=== PATIENT | female | born 1960 | race Caucasian/White ===

== ENCOUNTER 2022-06-12 23:51 | Emergency (ER) | payer BC, SELFPAY ==
[2022-06-12 23:51] VITALS: BP 179/84; PULSE 96; RESP 16; TEMP 36.8; O2SAT 97; BMI 46.2
[2022-06-13 00:05] VITALS: BMI 46.2
--- NOTE | 2022-06-13 00:08 | CT_ITS ---
PROCEDURE INFORMATION: Exam: CT Abdomen And Pelvis With Contrast Exam date and time: 06/13/2022 12:42 AM Age: 61 years old Clinical indication: Other: Bleeding from rectum TECHNIQUE: Imaging protocol: Computed tomography of the abdomen and pelvis with contrast. Radiation optimization: All CT scans at this facility use at least one of these dose optimization techniques: automated exposure control; mA and/or kV adjustment per patient size (includes targeted exams where dose is matched to clinical indication); or iterative reconstruction. Contrast material: ISOVUE; Contrast volume: 75 ml; Contrast route: IV; COMPARISON: No relevant prior studies available. FINDINGS: Liver: Normal. No mass. Gallbladder and bile ducts: Cholecystectomy. Pancreas: Normal. No ductal dilation. Spleen: Normal. No splenomegaly. Adrenal glands: Normal. No mass. Kidneys and ureters: Normal. No hydronephrosis. Stomach and bowel: Unremarkable. No obstruction. No mucosal thickening. Appendix: Appendix not seen but no secondary signs of appendicitis. Intraperitoneal space: Unremarkable. No free air. No significant fluid collection. Vasculature: Unremarkable. No abdominal aortic aneurysm. Lymph nodes: Unremarkable. No enlarged lymph nodes. Urinary bladder: Unremarkable as visualized. Reproductive: Unremarkable as visualized. Bones/joints: Unremarkable. No acute fracture. Soft tissues: Unremarkable. IMPRESSION: No acute findings in the abdomen and pelvis
[2022-06-13 00:14] LABS: Occult Blood,Stool Positive (Negative)
[2022-06-13 00:15] LABS: Basophils # 0.1 K/mm3 (0-0.2); Basophils % 1.4 % (0.1-2.0); Eosinophils # 0.5 K/mm3 (0.0-0.4); Eosinophils % 6.8 % (0.1-12.0); Hematocrit 37.8 % (37.0-47.0); Hemoglobin 12.3 g/dL (12.2-16.2); Lymphocytes # 2.4 K/mm3 (0.7-4.5); Lymphocytes % 31.2 % (10-50); Mean Corpuscular HGB Conc 32.5 g/dL (31.8-35.4); Mean Corpuscular Hemoglobin 27.7 pg (27.0-31.2); Mean Corpuscular Volume 85.3 fl (81-99); Mean Platelet Volume 8.3 fl (7.4-10.4); Monocytes # 0.4 K/mm3 (0.1-1.0); Monocytes % 5.1 % (1.7-9.3); Neutrophils # 4.3 K/mm3 (1.8-7.8); Neutrophils % 55.6 % (37.0-80.0); Platelet Count 262 K/mm3 (142-424); Red Blood Count 4.43 M/mm3 (4.20-5.40); Red Cell Distribution Width 14.6 % (11.5-17.5); White Blood Count 7.6 K/mm3 (4.8-10.8)
[2022-06-13 00:19] LABS: Alanine Aminotransferase 27 U/L (12-78); Albumin Level 4.5 g/dl (3.5-5.0); Albumin/Globulin Ratio 1.3 (1.1-1.8); Alkaline Phosphatase 108 U/L (38-126); Amylase 52 U/L (30-110); Anion Gap 12.5 mEq/L (5-15); Aspartate Amino Transferase 38 U/L (14-36); Bilirubin,Total 0.5 mg/dl (0.2-1.3); Blood Urea Nitrogen 25 mg/dl (7-17); Calcium 9.7 mg/dl (8.4-10.2); Carbon Dioxide 30 mmol/L (22.0-30.0); Chloride 100 mmol/L (98-107); Creatinine Clearance Estimated 45 mL/min (50-200); Estimated Glomerular Filt Rate 42 ml/min (>60); GFR (African American) 51 ML/MIN (>60); Globulin 3.4 g/dL (1.3-3.2); Glucose 164 mg/dl (74-100); Lipase 181 U/L (23-300); Potassium 3.5 mmoL/L (3.5-5.1); Sodium 139 mmol/L (136-145); Total Protein,Serum 7.9 g/dl (6.3-8.2)
--- NOTE | 2022-06-13 00:31 | HMH.EDGIBL ---
Discharge Plan Disposition Chief Complaint: GI Bleed Clinical Impressions Clinical Impression: Acute lower gastrointestinal bleeding, Hemorrhoids Instructions Patient Instructions: DI for Gastrointestinal Bleeding Discharge ED Provider: Robin Torres GI Bleed HPI General Chief complaint: GI Bleed Stated complaint: Rectal Bleeding Time Seen by Provider: 06/13/22 00:32 Mode of Arrival: EMS Source of Information: Patient, EMS and Medical Record Limitations: No Limitations Description of Symptoms (Recalled from ER Triage Doc. by RN): pt c/o rectal bleeding that started tonight. History of Present Illness HPI Narrative: brrb with bleeding started tonight - had colonoscopy a few months ago -hx of hemmorroids and reported the bleeding was dark and had clots MD complaint: gross hematochezia Onset (ago): hour(s) Consistency: intermittent Severity: moderate Context: history of GI bleed Associated symptoms: denies other symptoms Treatments Prior to Arrival: none Related Data Allergies Allergy/AdvReac Type Severity Reaction Status Date / Time Penicillins Allergy Verified 06/13/22 00:07 sulfamethoxazole Allergy Verified 06/13/22 00:08 [From Bactrim] trimethoprim [From Bactrim] Allergy Verified 06/13/22 00:08 [facility] Disclaimer: The information contained in this section may have been updated after the patient was seen, as this information can be updated by other users. Social History Smoking Status: Never smoker alcohol intake: never current occupational status: employed Travel in the last 8 weeks: None ROS Obtained: Yes All systems reviewed & no additional complaints except as documented Physical Exam General General appearance: alert Head Head exam: normocephalic Eye Eye exam: Present PERRL and EOMI ENT ENT exam: Present mucous membranes moist Neck Neck exam: Present trachea midline Respiratory Respiratory exam: Absent respiratory distress Cardiovascular Cardiovascular exam: Present regular rate Abdominal Exam Abdominal exam: Present soft; Absent tenderness Rectal Exam Rectal exam: Present heme (+) stool and hemorrhoids Extremities Exam Extremities exam: Present full ROM Neurological Exam Neurological exam: Present alert, oriented X3 and CN II-XII intact; Absent motor sensory deficit Psychiatric Psychiatric exam: Present normal affect Skin Skin exam: Absent rash Medical Decision Making Medical Records Medical records reviewed: Yes I reviewed the patient's medical records. Jean Inquiry Pt receiving controlled substance: No Vital Signs: 06/12/22 23:51 Temperature 98.2 F Temperature Source Oral Pulse Rate [Right] 96 H Respiratory Rate 16 Blood Pressure [Right Arm] 179/84 H Blood Pressure Mean [Right Arm] 115 02 Sat by Pulse Oximetry 97 Lab Data Lab results reviewed: Yes I reviewed the patient's lab results. Lab Results 06/13/22 00:00: WBC 7.6, RBC 4.43, Hgb 12.3, Hct 37.8, MCV 85.3, MCH 27.7, MCHC 32.5, RDW 14.6, Plt Count 262, MPV 8.3, Neut % (Auto) 55.6, Lymph % (Auto) 31.2, [place] % (Auto) 5.1, Eos % (Auto) 6.8, Baso % (Auto) 1.4, Neut # (Auto) 4.3, Lymph # (Auto) 2.4, [place] # (Auto) 0.4, Eos # (Auto) 0.5 H, Baso # (Auto) 0.1 06/13/22 00:00: Sodium 139, Potassium 3.5, Chloride 100, Carbon Dioxide 30, Anion Gap 12.5, BUN 25 H, Creatinine 1.30 H, Estimated Creat Clear 45, Estimated GFR 42 L, Est GFR ( Amer) 51 L, Glucose 164 H, Calcium 9.7, Total Bilirubin 0.5, AST 38 H, ALT 27, Alkaline Phosphatase 108, Total Protein 7.9, Albumin 4.5, Globulin 3.4 H, Albumin/Globulin Ratio 1.3, Amylase 52, Lipase 181 06/13/22 00:00: Stool Occult Blood Positive A Result diagrams: 06/13/22 00:00 06/13/22 00:00 Orders (Tests/Meds): ED MEDICATIONS Discontinued Medications Generic Name Dose Route Start Last Admin Trade Name Freq PRN Reason Stop Dose Admin Sodium Chloride 1,000 mls @ 999 mls/hr 06/13/22 00:15 06/13/22 00:17 Sod C
[2022-06-13 01:35] VITALS: BP 136/84; PULSE 90; RESP 16; TEMP 36.8; O2SAT 96
== END 2022-06-13 01:56 | disposition home or self-care (01) ==
PROVIDERS: Emergency Provider Emergency Medicine; PCP Nurse Practitioner
DX: K92.1 Melena (principal); K64.9 Unspecified hemorrhoids; Z88.0 Allergy status to penicillin; Z88.2 Allergy status to sulfonamides; Z88.8 Allergy status to other drugs, medicaments and biological substances
CPT/HCPCS: 74177; 80053; 82150; 82272; 83690; 85025; 96360; 99285; G0328; Q9967

== ENCOUNTER 2024-01-23 14:25 | Emergency (ER) | payer BC, SELFPAY ==
[2024-01-23 14:46] VITALS: BP 144/85; PULSE 109; RESP 16; TEMP 36.6; O2SAT 99; BMI 44.6
--- NOTE | 2024-01-23 14:57 | ED_ITS ---
Discharge Plan Disposition Patient Disposition: Home, Self-Care Condition: Good Prescriptions Prescriptions: New prednisone 10 mg tablet 10 mg PO DIRECTED 9 Days Qty: 21 0RF Rx Instructions: Take 4 tablets daily for 3 days, then take 2 tablets daily for 3 days, then take 1 tablet daily for 3 days, then stop. Referrals Follow up/Referrals: Christa Cortes APRN [Primary Care Provider] - See instructions Kandace Alcaraz DPM [Staff Physician] - See instructions Activity Restrictions/Add. Instructions Additional Instructions/Restrictions: Rest the extremity, Elevate the extremity as tolerated while you are resting. Take tylenol for pain. Take the medications as directed. Follow up with the boring machine set up operator (Dr. Alcaraz). I put in a referral. You will need to call her office and schedule an appointment. Her office phone number will be on this paperwork. Follow up with your regular doctor. GO TO THE ER FOR ANY WORSENING SYMPTOMS Clinical Impressions Clinical Impression: Left foot pain Print Language Print Language: Turkmen Discharge ED Provider: Paramjit Hickman [facility] General Stated complaint: Pain in L foot-prev accident Mode of Arrival: Ambulatory Source of Information: Patient Limitations: No Limitations Time Seen by Provider: 01/23/24 14:57 Description of Symptoms (Recalled from Triage Doc. by RN): Patient reports severe pain and swelling in her left foot. HEENT Symptoms (Recalled from RN notes): No Resp Symptoms (Recalled from RN notes): No Skin Symptoms (Recalled from RN notes): No MS Symptoms (Recalled from RN notes): Yes Functional Status (Recalled from RN notes): wnl Related Data Previous Rx's ?Medication ?Instructions ?Recorded prednisone 10 mg tablet 10 mg PO DIRECTED 9 days #21 01/23/24 tabs Allergies Allergy/AdvReac Type Severity Reaction Status Date / Time Penicillins Allergy Verified 06/13/22 00:07 sulfamethoxazole Allergy Verified 06/13/22 00:08 [From Bactrim] trimethoprim [From Bactrim] Allergy Verified 06/13/22 00:08 Worker's Comp Is this a Worker's Comp case?: No [facility] Disclaimer: The information contained in this section may have been updated after the patient was seen, as this information can be updated by other users. Social History (Updated 06/13/22 @ 01:43 by Robin Torres MD) Smoking Status: Never smoker alcohol intake: never current occupational status: employed Travel in the last 8 weeks: None ROS Obtained: Yes All systems reviewed & no additional complaints except as documented Constitutional Constitutional: Denies chills and Denies fever(s) Eyes Eyes: Denies eye discharge ENT Ears, Nose, Mouth, and Throat: Denies dizziness, Denies otalgia and Denies sore throat Cardiovascular Cardiovascular: Denies chest pain Respiratory Respiratory: Denies shortness of breath, Denies chest congestion, Denies cough, Denies stridor and Denies wheezing Gastrointestinal Gastrointestingal: Denies nausea or vomiting Musculoskeletal Musculoskeletal: Reports system reviewed and no additional complaints, except as documented and Denies arthralgias Integumentary/Breasts Skin/Breast: Denies rash Neurologic Neurologic: Denies dizziness and Denies paresthesias Allergic/Immunologic Allergic/Immunologic: Denies wheezing Physical Exam General General appearance: alert and in no apparent distress Head Head exam: atraumatic, normocephalic and normal inspection Eye Eye exam: Present normal appearance, PERRL and EOMI ENT ENT exam: Present normal exam, normal oropharynx, mucous membranes moist, TM's normal bilaterally and normal external ear exam Neck Neck exam: Present normal inspection, full ROM and trachea midline; Absent meningismus or lymphadenopathy Chest Chest inspection: Present normal inspection and symmetric chest wall rise; Absent tenderness Respiratory Respiratory exam: Present normal lung sounds bilaterally; Absent respiratory distress Cardiovascular Cardiovascular exam: Present regular rate and normal rhythm; Absent JVD Abdominal Exam Abdominal exam: Present soft and normal bowel sounds; Absent distention, tenderness or guarding Extremities Exam Extremities exam: Present normal inspection, full ROM and normal capillary refill; Absent calf tenderness Back Exam Back exam: Present normal inspection; Absent tenderness Neurological Exam Neurological exam: Present alert and oriented X3 Psychiatric Psychiatric exam: Present normal affect and normal mood Skin Skin exam: Present warm, dry, intact and normal color Lymphatic Lymphatic Findings: no adenopathy Medical Decision Making Medical Records Medical records reviewed: No I reviewed the patient's medical records. Jean Inquiry Pt receiving controlled substance: No Vital Signs: 01/23/24 14:46 Temperature 97.9 F Temperature Source Oral Pulse Rate [Radial] 109 H Respiratory Rate 16 Blood Pressure [Right Arm] 144/85 H Blood Pressure Mean [Right Arm] 104 Blood Pressure Source [Right Arm] Automatic Cuff Blood Pressure Position [Right Arm] Sitting 02 Sat by Pulse Oximetry 99 Oxygen Delivery Method Room Air
[2024-01-23 15:41] VITALS: BP 144/85; PULSE 109; RESP 16; TEMP 36.6; O2SAT 99
== END 2024-01-23 15:42 | disposition home or self-care (01) ==
PROVIDERS: Emergency Provider Nurse Practitioner Family; PCP Nurse Practitioner
DX: M79.672 Pain in left foot (principal)
CPT/HCPCS: 99204; 99212; G0463

== ENCOUNTER 2024-02-02 10:49 | Outpatient (CLI) | payer BC, SELFPAY ==
--- NOTE | 2024-02-02 10:53 | XR_ITS ---
FINAL REPORT CLINICAL HISTORY: L foot pain FINDINGS: LEFT FOOT Three views of the left foot demonstrate no acute fracture or dislocation. The visualized joint spaces are normally aligned. There is lateral soft tissue swelling. IMPRESSION: No acute bony abnormality. Reviewed, Interpreted and Dictated by Reynaldo Thompson III, MD Transcribed by Nathalia Street Authenticated and [facility]
--- NOTE | 2024-02-02 10:53 | XR_ITS ---
FINAL REPORT CLINICAL HISTORY: L foot pain FINDINGS: LEFT ANKLE Three views demonstrate no acute fracture or dislocation. The visualized joint spaces are normally aligned. There are mild degenerative changes with calcaneal spurring. There is forefoot soft tissue swelling. IMPRESSION: No acute bony abnormality. Reviewed, Interpreted and Dictated by Reynaldo Thompson III, MD Transcribed by Nathalia Street Authenticated and [facility]
== END 2024-02-02 23:59 | disposition home or self-care (01) ==
LOC: RAD 10:49
PROVIDERS: PCP Student in an Organized Health Care Education/Training Program; Visit Provider Student in an Organized Health Care Education/Training Program
DX: M79.672 Pain in left foot (principal)
CPT/HCPCS: 73610; 73630

== ENCOUNTER 2024-02-12 11:18 | Outpatient (CLI) | payer BC, SELFPAY ==
--- NOTE | 2024-02-12 11:22 | XR_ITS ---
FINAL REPORT CLINICAL HISTORY: right ankle pain FINDINGS: Right ankle Three views were obtained. There is no acute fracture or dislocation. There are mild degenerative changes. There is a questionable subchondral cyst in the medial talar dome. Calcaneal spurs are identified. No soft tissue abnormality is identified. IMPRESSION: Mild degenerative changes. Questionable subchondral cyst in the medial talar dome. Reviewed, Interpreted and Dictated by Reynaldo Thompson III, MD Transcribed by Mel Ledbetter Authenticated and [facility]
--- NOTE | 2024-02-12 11:22 | XR_ITS ---
FINAL REPORT CLINICAL HISTORY: right foot pain FINDINGS: Right foot Three views were obtained. There is no acute fracture or dislocation. There are mild degenerative changes. Mild hallux valgus deformity is identified. There are calcaneal spurs. No soft tissue abnormality is identified. IMPRESSION: Mild degenerative changes. Reviewed, Interpreted and Dictated by Reynaldo Thompson III, MD Transcribed by Mel Ledbetter Authenticated and [facility]
[2024-02-12 18:41] LABS: Basophils # 0.1 K/mm3 (0-0.2); Eosinophils # 0.4 K/mm3 (0.0-0.4); Eosinophils % 4.4 % (0.1-12.0); Hematocrit 40.4 % (37.0-47.0); Hemoglobin 12.7 g/dL (12.2-16.2); Lymphocytes % 24.4 % (10-50); Mean Corpuscular HGB Conc 31.4 g/dL (31.8-35.4); Mean Corpuscular Hemoglobin 28.9 pg (27.0-31.2); Mean Corpuscular Volume 92.2 fl (81-99); Mean Platelet Volume 11.1 fl (7.4-10.4); Monocytes # 0.5 K/mm3 (0.1-1.0); Monocytes % 5.8 % (1.7-9.3); Neutrophils # 5.2 K/mm3 (1.8-7.8); Neutrophils % 64.5 % (37.0-80.0); Platelet Count 294 K/mm3 (142-424); Red Blood Count 4.39 M/mm3 (4.20-5.40); Red Cell Distribution Width 14.8 % (11.5-17.5); White Blood Count 8.1 K/mm3 (4.8-10.8)
[2024-02-12 19:27] LABS: Alanine Aminotransferase 29 U/L (12-78); Albumin Level 4.3 g/dl (3.5-5.0); Albumin/Globulin Ratio 1.2 (1.1-1.8); Alkaline Phosphatase 97 U/L (38-126); Anion Gap 16.6 mEq/L (5-15); Aspartate Amino Transferase 36 U/L (14-36); Bilirubin,Total 0.8 mg/dl (0.2-1.3); Blood Urea Nitrogen 16 mg/dl (7-17); Calcium 9.9 mg/dl (8.4-10.2); Carbon Dioxide 30 mmol/L (22.0-30.0); Chloride 98 mmol/L (98-107); Chol/HDL Ratio 5.6 (1-3.5); Cholesterol 175 mg/dl (140-200); Estimated Glomerular Filt Rate 50 ml/min (>60); GFR (African American) 61 ML/MIN (>60); Globulin 3.7 g/dL (1.3-3.2); Glucose 148 mg/dl (74-100); HDL Cholesterol 31 mg/dl (40-60); Potassium 4.6 mmoL/L (3.5-5.1); Sodium 140 mmol/L (136-145); Triglycerides 332 mg/dl (30-150); Uric Acid 8.4 mg/dl (2.5-6.2); VLDL Cholesterol 66 mg/dL (0-40)
[2024-02-12 19:40] LABS: Direct LDL Cholesterol 78.77 mg/dL (100-129)
[2024-02-12 21:59] LABS: Hemoglobin A1C 7.6 % (4.0-6.0)
== END 2024-02-12 23:59 | disposition home or self-care (01) ==
LOC: LAB.DROPOF 11:19
PROVIDERS: PCP Family Medicine; Visit Provider Family Medicine
DX: M25.571 Pain in right ankle and joints of right foot (principal); M79.671 Pain in right foot; M19.90 Unspecified osteoarthritis, unspecified site; N18.9 Chronic kidney disease, unspecified; M10.9 Gout, unspecified; E83.42 Hypomagnesemia; E78.5 Hyperlipidemia, unspecified; E11.9 Type 2 diabetes mellitus without complications
CPT/HCPCS: 73600; 73630; 80053; 80061; 83036; 83735; 84550; 85025; 86140

== ENCOUNTER 2024-02-17 09:56 | Outpatient (CLI) | payer BC, SELFPAY ==
[2024-02-17 19:38] LABS: Magnesium 1.7 mg/dl (1.6-2.3)
== END 2024-02-17 23:59 | disposition home or self-care (01) ==
LOC: LAB.DROPOF 02-18 09:57
PROVIDERS: PCP Family Medicine; Visit Provider Family Medicine
DX: E83.42 Hypomagnesemia (principal)
CPT/HCPCS: 83735

== ENCOUNTER 2024-02-18 10:26 | Outpatient (CLI) | payer BC, SELFPAY ==
--- NOTE | 2024-02-18 10:26 | MM_ITS ---
PROCEDURE INFORMATION: Exam: MG Bilateral Screening 3D Mammography Exam date and time: 02/18/2024 10:18 AM Age: 63 years old Clinical indication: Screening examination TECHNIQUE: Imaging protocol: Bilateral Screening tomosynthesis and 2D mammography including computer-aided detection (CAD) when performed. COMPARISON: MG MM MAMMO DIGITAL PIERRE SCREEN BILAT 11/07/2021 12:58 PM FINDINGS: MAMMOGRAPHY: Breast composition: The breasts are heterogeneously dense, which may obscure small masses. Mass: None. Architectural distortion: None. Calcifications: No suspicious calcifications. Asymmetric density: None. Skin thickening: None. Axillary adenopathy: None. IMPRESSION: No mammographic evidence of malignancy. Annual screening is recommended unless otherwise clinically indicated. ASSESSMENT: BI-RADS Category 1: Negative
== END 2024-02-18 23:59 | disposition home or self-care (01) ==
LOC: RAD 10:26
PROVIDERS: PCP Family Medicine; Visit Provider Family Medicine
DX: Z12.31 Encounter for screening mammogram for malignant neoplasm of breast (principal)
CPT/HCPCS: 77063; 77067

== ENCOUNTER 2024-03-10 10:40 | Outpatient (CLI) | payer BC, SELFPAY ==
--- NOTE | 2024-03-10 10:43 | CA_ITS ---
FINAL REPORT TECHNIQUE: Color Doppler, duplex Doppler and compression sonography of the right lower extremity venous system was performed. CLINICAL HISTORY: right leg swelling, HTN, HLD, DM. Denies trauma. States RLE edema x 1 month, better with elevation. Right leg and foot aren't as swollen when she wakes in the morning but swelling never fully goes down. FINDINGS: There is no evidence of deep venous thrombosis from the level of the groin to the calf. The veins are patent and compressible. IMPRESSION: No evidence of deep venous thrombosis right lower extremity. Reviewed, Interpreted and Dictated by Reynaldo Thompson III, MD Transcribed by Mel Ledbetter Authenticated and [facility]
== END 2024-03-10 23:59 | disposition home or self-care (01) ==
LOC: RT 10:41
PROVIDERS: PCP Family Medicine; Visit Provider Family Medicine
DX: M79.89 Other specified soft tissue disorders (principal)
CPT/HCPCS: 93971

== ENCOUNTER 2024-03-16 10:00 | Outpatient (CLI) | payer BC, SELFPAY ==
[2024-03-16 22:10] LABS: Anion Gap 11.1 mEq/L (5-15); Blood Urea Nitrogen 21 mg/dl (7-17); Calcium 10.1 mg/dl (8.4-10.2); Carbon Dioxide 29 mmol/L (22.0-30.0); Chloride 103 mmol/L (98-107); Estimated Glomerular Filt Rate 56 ml/min (>60); GFR (African American) 68 ML/MIN (>60); Glucose 171 mg/dl (74-100); Magnesium 2.2 mg/dl (1.6-2.3); Potassium 5.1 mmoL/L (3.5-5.1); Sodium 138 mmol/L (136-145)
== END 2024-03-16 23:59 | disposition home or self-care (01) ==
LOC: LAB.DROPOF 03-17 10:23
PROVIDERS: PCP Family Medicine; Visit Provider Family Medicine
DX: N18.9 Chronic kidney disease, unspecified (principal)
CPT/HCPCS: 80048; 83735

== ENCOUNTER 2024-03-23 12:34 | Outpatient (CLI) | payer BC, SELFPAY ==
[2024-03-23 14:22] VITALS: BMI 46.0
== END 2024-03-23 23:59 | disposition home or self-care (01) ==
LOC: DIETICIAN 12:35
PROVIDERS: PCP Family Medicine; Visit Provider Family Medicine
DX: E11.9 Type 2 diabetes mellitus without complications (principal); E66.01 Morbid (severe) obesity due to excess calories; Z68.42 Body mass index [BMI] 45.0-49.9, adult
CPT/HCPCS: 97802

== ENCOUNTER 2024-03-31 08:09 | Outpatient (CLI) | payer BC, SELFPAY ==
--- NOTE | 2024-03-31 08:09 | MR_ITS ---
FINAL REPORT CLINICAL HISTORY: Ankle Pain COMPARISON: None FINDINGS: Multiplanar and multisequence imaging of the right ankle was obtained with and without intravenous contrast. There is fusiform enlargement of the distal Achilles tendon. Linear abnormal signal is consistent with chronic partial intrasubstance tear. The plantar fascia is intact. The bony structures are intact without evidence of fracture, bone bruise or marrow edema. There is a small osteochondral lesion of the medial talar dome measuring up to 5 mm. The ligaments are intact without evidence of injury. The flexor and extensor tendons are intact. The posterior plantar aponeurosis is intact. No significant joint effusion is seen. The musculature is intact. The soft tissue edema is noted about the ankle. There is no evidence of abnormal contrast enhancement. 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 Osteochondral defect medial talar dome. Please see foot MRI report. Reviewed, Interpreted and Dictated by Kishore Johnson MD Transcribed by Thuy Fuller Authenticated and [facility]
--- NOTE | 2024-03-31 08:09 | MR_ITS ---
FINAL REPORT CLINICAL HISTORY: Foot Pain COMPARISON: None FINDINGS: Multiplanar MR imaging of the right foot was performed with and without contrast. There is abnormal signal in the anterior aspect of the tarsal cuboid and lateral cuneiform. Abnormal signal is noted at the base of the 2nd, 3rd, and 4th metatarsals. There is no definite fracture identified. No abnormal fluid collection is seen. There appears to be enhancement of the distal portion of the tarsal cuboid, lateral cuneiform, and base of the 2nd through 4th metatarsals. IMPRESSION: Abnormal signal anterior aspect of the lateral cuneiform, anterior cuboid, and base of the 2nd through 4th metatarsals. Findings are favored to be related to ligamentous instability and/or tarsometatarsal osteoarthritis. Reviewed, Interpreted and Dictated by Kishore Johnson MD Transcribed by Thuy Fuller Authenticated and [facility]
[2024-03-31] MEDS: GADOTERIDOL INJ 20ML SYRINGE 20 ML IV (09:58)
[2024-03-31] MEDS: SODIUM CHLORIDE 0.9% 10ML SYR (RAD ONLY) 10 ML IV (09:58)
[2024-03-31] MEDS: GADOTERIDOL INJ 10ML SYRINGE 2 ML IV (09:58)
== END 2024-03-31 23:59 | disposition home or self-care (01) ==
LOC: RAD 08:09
PROVIDERS: PCP Family Medicine; Visit Provider Nurse Practitioner
DX: R60.0 Localized edema (principal); M76.71 Peroneal tendinitis, right leg
CPT/HCPCS: 73720; 73723; A9576

== ENCOUNTER 2024-05-04 08:25 | Outpatient (CLI) | payer BC, SELFPAY ==
--- NOTE | 2024-05-04 08:30 | XR_ITS ---
FINAL REPORT CLINICAL HISTORY: .pain COMPARISON: None FINDINGS: RIGHT FOOT: Three views of the right foot were obtained. There is no acute fracture or dislocation. There is mild degenerative change as well as calcaneal spurs. There is a mild hallux valgus deformity. Pes planus deformity is present as well. There is no soft tissue abnormality. IMPRESSION: Mild degenerative change, with calcaneal spurs, a mild hallux valgus deformity, and pes planus deformity. No acute bony abnormality. Authenticated and [facility]
--- NOTE | 2024-05-04 08:30 | XR_ITS ---
FINAL REPORT CLINICAL HISTORY: .pain COMPARISON: None FINDINGS: RIGHT ANKLE: Three views of the right ankle were obtained. There is no acute fracture or dislocation. The joint spaces and mortise are intact. Mild degenerative change is present. Soft tissue swelling is present surrounding the ankle. There are calcaneal spurs present. IMPRESSION: Mild degenerative change and soft tissue swelling with no acute bony abnormality. Authenticated and [facility]
== END 2024-05-04 23:59 | disposition home or self-care (01) ==
LOC: RAD 08:27
PROVIDERS: PCP Family Medicine; Visit Provider Nurse Practitioner
DX: M19.071 Primary osteoarthritis, right ankle and foot (principal); R22.41 Localized swelling, mass and lump, right lower limb; M84.374D Stress fracture, right foot, subsequent encounter for fracture with routine healing
CPT/HCPCS: 73610; 73630

== ENCOUNTER 2024-05-05 08:59 | Emergency (ER) | payer BC, SELFPAY ==
[2024-05-05 09:47] VITALS: BP 162/89; PULSE 94; RESP 20; TEMP 36.7; O2SAT 96; BMI 45.7
--- NOTE | 2024-05-05 09:47 | XR_ITS ---
PROCEDURE INFORMATION: Exam: XR Right Knee Exam date and time: 05/05/2024 9:46 AM Age: 63 years old Clinical indication: Pain; Knee; Right; Additional info: Pain, unknown injury TECHNIQUE: Imaging protocol: Radiologic exam of the right knee. Views: 3 views. COMPARISON: CR XR ANKLE WT BEARING RT MIN 3V 05/04/2024 8:47 AM FINDINGS: Bones/joints: Mild degenerative changes within the medial compartment reflected as mild joint space narrowing. Mild patellofemoral degenerative changes. Subchondral lucency within the medial tibial plateau. Correlation with CT recommended. Mild degenerative changes most pronounced medially Soft tissues: Normal. IMPRESSION: Subchondral lucency within the medial tibial plateau. Correlation with CT recommended.
--- NOTE | 2024-05-05 09:49 | EXP.UTC ---
Discharge Plan Disposition Patient Disposition: Home, Self-Care Prescriptions Prescriptions: No Action triamcinolone acetonide 0.5 % cream 1 applic topical BID Qty: 15 2RF Rx Instructions: apply to rash left thigh prn itching ibuprofen-famotidine [Duexis] 800-26.6 mg tablet 1 tab PO TID 30 Days Qty: 90 1RF albuterol sulfate [Ventolin HFA] 90 mcg/actuation HFA aerosol inhaler 2 puff inhalation Q6H PRN aspirin [Adult Aspirin Regimen] 81 mg tablet,delayed release (DR/EC) 81 mg PO DAILY atorvastatin 40 mg tablet 40 mg PO HS (DME) blood sugar diagnostic Strip See Rx Instructions .Route Rx Instructions: As directed esomeprazole magnesium 40 mg capsule,delayed release(DR/EC) 40 mg PO DAILY hydralazine 50 mg tablet 50 mg PO QID (DME) pen needle, diabetic [Comfort EZ Pen Reeder] 32 gauge x 5/32 needle See Rx Instructions .Route Rx Instructions: As directed (DME) lancets 28 gauge misc See Rx Instructions .Route Rx Instructions: As directed lisinopril 40 mg tablet 40 mg PO DAILY metformin 500 mg tablet extended release 24 hr 1,000 mg PO BID Rx Instructions: with meals potassium chloride 10 mEq capsule, extended release 10 meq PO DAILY pregabalin [Lyrica] 50 mg capsule 50 mg PO TID Qty: 90 2RF allopurinol 100 mg tablet 50 mg PO DAILY Qty: 45 0RF insulin glargine [Lantus Solostar U-100 Insulin] 100 unit/mL (3 mL) insulin pen 20 unit SQ BID Qty: 15 2RF metoprolol succinate 100 mg tablet extended release 24 hr 100 mg PO DAILY Qty: 90 0RF amlodipine 5 mg tablet 5 mg PO DAILY Qty: 90 0RF Referrals Follow up/Referrals: Bhupendra Haile DO [Staff Physician] - See instructions Jamin Felix MD [Primary Care Provider] - See instructions Activity Restrictions/Add. Instructions Additional Instructions/Restrictions: Rest the extremity, Elevate the extremity as tolerated while you are resting. Follow up with orthopedics. Dr. Haile will see you today. Follow his instructions. Follow up with your regular doctor. GO TO THE ER FOR ANY WORSENING SYMPTOMS Clinical Impressions Clinical Impression: Left knee pain, Closed fracture of medial portion of tibial plateau Instructions Patient Instructions: DI for Knee Pain Print Language Print Language: Bulgarian Discharge ED Provider: Paramjit Hickman [facility] HPI General Stated complaint: R knee pain Mode of Arrival: Ambulatory Source of Information: Patient Time Seen by Provider: 05/05/24 09:49 Description of Symptoms (Recalled from Triage Doc. by RN): RIGHT KNEE PAIN HEENT Symptoms (Recalled from RN notes): No Resp Symptoms (Recalled from RN notes): No Skin Symptoms (Recalled from RN notes): No MS Symptoms (Recalled from RN notes): Yes Functional Status (Recalled from RN notes): WNL History of Present Illness Provider Complaint: She states that for the past 3 days she has had right knee pain. She states that she was using her knee to push against a couch to move it before pain started. Related Data Home Medications ?Medication ?Instructions ?Recorded ?Confirmed albuterol sulfate 90 mcg/actuation 2 puff inhalation Q6H PRN 02/02/24 05/05/24 aerosol inhaler (Ventolin HFA) aspirin 81 mg tablet,delayed 81 mg PO DAILY 02/02/24 05/05/24 release (Adult Aspirin Regimen) atorvastatin 40 mg tablet 40 mg PO HS 02/02/24 05/05/24 blood sugar diagnostic 02/02/24 05/05/24 esomeprazole magnesium 40 mg 40 mg PO DAILY 02/02/24 05/05/24 capsule,delayed release hydralazine 50 mg tablet 50 mg PO QID 02/02/24 05/05/24 lancets 28 gauge 02/02/24 05/05/24 lisinopril 40 mg tablet 40 mg PO DAILY 02/02/24 05/05/24 metformin 500 mg tablet,extended 1,000 mg PO BID 02/02/24 05/05/24 release 24 hr pen needle, diabetic 32 gauge x 02/02/24 05/05/24/32 (Comfort EZ Pen Reeder) potassium chloride 10 mEq 10 meq PO DAILY 02/02/24 05/05/24 capsule,extended release Previous Rx's ?Medication ?Instructions ?Recorded pregabalin 50 mg capsule (Lyrica) 50 mg PO TID #90 caps 02/12/24 allopurinol 100 mg tablet 50 mg (1/2 x 100 mg) PO DAILY #45 02/13/24 tabs insulin glargine 100 unit/mL (3 20 unit (0.2 mL) SQ BID #15 mL 02/24/24 mL) subcutaneous pen (Lantus Solostar U-100 Insulin) triamcinolone acetonide 0.5 % 1 applic topical BID #15 grams 03/16/24 topical cream metoprolol succinate 100 mg 100 mg PO DAILY #90 tabs 04/06/24 tablet,extended release 24 hr amlodipine 5 mg tablet 5 mg PO DAILY #90 tabs 04/12/24 ibuprofen 800 mg-famotidine 26.6 1 tab PO TID 30 days #90 tabs 05/04/24 mg tablet (Duexis) Allergies Allergy/AdvReac Type Severity Reaction Status Date / Time Penicillins Allergy Verified 05/05/24 11:03 sulfamethoxazole Allergy Verified 05/05/24 11:03 [From Bactrim] trimethoprim [From Bactrim] Allergy Verified 05/05/24 11:03 clonidine AdvReac Mild Hypotension Verified 05/05/24 11:03 gabapentin AdvReac Mild Anxiety Verified 05/05/24 11:03 Worker's Comp Is this a Worker's Comp case?: No [facility] Disclaimer: The information contained in this section may have been updated after the patient was seen, as this information can be updated by other users. Medical History Cuboid fracture Chronic kidney disease G3a Hypomagnesemia Arthritis Screening mammogram for breast cancer Gout Uric 8.4 Neuropathy due to herpes zoster Diabetic neuropathy Right ankle pain Right foot pain GERD (gastroesophageal reflux disease) Diabetes Hyperlipidemia Hypertension Acute lower gastrointestinal bleeding Hemorrhoids Left foot pain Surgical History H/O hysterectomy with oophorectomy Hx laparoscopic cholecystectomy around 2009 No pertinent past surgical history Family History Family/Other Diabetes Hyperlipidemia Hypertension Social History Smoking Status: Never smoker alcohol intake: never substance use type: denies use current occupational status: disabled Travel in the last 8 weeks: None household members: family lives independently: Yes marital status: legally service: No group home: No Hx Recent Travel: No ROS Obtained: Yes All systems reviewed & no additional complaints except as documented Constitutional Constitutional: Denies chills and Denies fever(s) Eyes Eyes: Denies eye discharge ENT Ears, Nose, Mouth, and Throat: Denies dizziness, Denies otalgia and Denies sore throat Cardiovascular Cardiovascular: Denies chest pain Respiratory Respiratory: Denies shortness of breath, Denies chest congestion, Denies cough, Denies stridor and Denies wheezing Gastrointestinal Gastrointestingal: Denies nausea or vomiting Musculoskeletal Musculoskeletal: Reports as per HPI Integumentary/Breasts Skin/Breast: Denies redness, Denies rash and Denies wounds Neurologic Neurologic: Denies dizziness and Denies paresthesias Allergic/Immunologic Allergic/Immunologic: Denies wheezing Physical Exam General General appearance: alert and in no apparent distress Head Head exam: atraumatic, normocephalic and normal inspection Eye Eye exam: Present normal appearance, PERRL and EOMI ENT ENT exam: Present normal exam, normal oropharynx, mucous membranes moist, TM's normal bilaterally and normal external ear exam Neck Neck exam: Present normal inspection, full ROM and trachea midline; Absent meningismus or lymphadenopathy Chest Chest inspection: Present normal inspection and symmetric chest wall rise; Absent tenderness Respiratory Respiratory exam: Present normal lung sounds bilaterally; Absent respiratory distress Cardiovascular Cardiovascular exam: Present regular rate and normal rhythm; Absent JVD Abdominal Exam Abdominal exam: Present soft and normal bowel sounds; Absent distention, tenderness or guarding Extremities Exam Extremities exam: Present normal capillary refill; Absent calf tenderness Expanded Lower Extremity Exam Right: Hip/Pelvis exam: Present normal inspection and full ROM; Absent tenderness Upper leg exam: Present normal inspection and full ROM; Absent tenderness Knee exam: Present tenderness, swelling and knee extension intact; Absent abrasion, laceration, ecchymosis, deformity, crepitus, dislocation, erythema, effusion, anterior drawer sign, posterior draw sign, pain with valgus, laxity with valgus, pain with varus or laxity with varus Lower leg exam: Present normal inspection, full ROM and tenderness; Absent Homans' sign or Achilles tendon intact Ankle exam: Present normal inspection and full ROM; Absent tenderness, tenderness over talofibular lig or anterior draw sign Foot/toe exam: Present normal inspection and full ROM; Absent tenderness Neurovascular/Tendon exam: Present normal capillary refill, normal 2-point discrimination and normal fine/light touch; Absent pulse deficit, motor deficit, sensory deficit, tendon deficit, extremity cold to touch or pallor Gait: not tested/not observed Back Exam Back exam: Present normal inspection; Absent tenderness Neurological Exam Neurological exam: Present alert and oriented X3 Psychiatric Psychiatric exam: Present normal affect and normal mood Skin Skin exam: Present warm, dry, intact and normal color Lymphatic Lymphatic Findings: no adenopathy Medical Decision Making Medical Records Medical records reviewed: No I reviewed the patient's medical records. Screening: Per USPSTF and CDC recommendations, given the prevalence of disease in our region, it is our hospital?s policy to screen for HIV and viral Hepatitis for all patients aged 18 and over and those with ongoing risk factors. Jean Inquiry Pt receiving controlled substance: No Vital Signs: 05/05/24 09:47 Temperature 98.1 F Temperature Source Oral Pulse Rate [Left Radial] 94 H Respiratory Rate 20 Blood Pressure [Left Arm] 162/89 H Blood Pressure Mean [Left Arm] 113 02 Sat by Pulse Oximetry 96 Orders (Tests/Meds): ORDERS Category Date Time Status Knee XR right 3 views [XR knee RT 3V] Stat Exams 05/05/24 09:47 Ordered Radiology Data #1: Image(s): Knee Image Reviewed: Yes I reviewed the patient's radiology image and Yes I have reviewed radiologist's interpretation Preliminary Findings: Abnormal Accession No. : [id number] Patient Name / ID : RITU CORONA / [id number] Exam Date : 05/05/2024 09:46:11 ( Final ) Study Comment : Sex / Age : F / 63Y Creator : RHODA MOTTA MD Dictator : Sheet Rock Sander : Licensed Pesticide Applicator : RHODA MOTTA MD Approver2 : Report Date : 05/05/2024 10:27:51 My Comment : PROCEDURE INFORMATION: Exam: XR Right Knee Exam date and time: 05/05/2024 9:46 AM Age: 63 years old Clinical indication: Pain; Knee; Right; Additional info: Pain, unknown injury TECHNIQUE: Imaging protocol: Radiologic exam of the right knee. Views: 3 views. COMPARISON: CR XR ANKLE WT BEARING RT MIN 3V 05/04/2024 8:47 AM FINDINGS: Bones/joints: Mild degenerative changes within the medial compartment reflected as mild joint space narrowing. Mild patellofemoral degenerative changes. Subchondral lucency within the medial tibial plateau. Correlation with CT recommended. Mild degenerative changes most pronounced medially Soft tissues: Normal. IMPRESSION: Subchondral lucency within the medial tibial plateau. Correlation with CT recommended. Medical Decision Narrative: She was transferred via w/c to the orthopedics office due to her abnormal knee x-ray.
[2024-05-05 10:44] VITALS: BP 162/89; PULSE 94; RESP 20; TEMP 36.7
== END 2024-05-05 10:50 | disposition home or self-care (01) ==
LOC: UTC 09:02
PROVIDERS: Emergency Provider Nurse Practitioner Family; PCP Family Medicine
DX: S82.131A Displaced fracture of medial condyle of right tibia, initial encounter for closed fracture (principal); W22.8XXA Striking against or struck by other objects, initial encounter
CPT/HCPCS: 73562; 99213; G0381

== ENCOUNTER 2024-05-07 08:46 | Outpatient (RCR) | payer BC, SELFPAY ==
--- NOTE | 2024-05-07 10:04 | [facility].PTOPEV ---
PT Outpatient Evaluation Rehab PT Outpatient Evaluation Start: 05/07/24 08:55 Freq: Status: Active Protocol: Document 05/07/24 09:26 MELONIE (Rec: 05/07/24 10:04 MELONIE [id number]) E-signed By Barrett Domínguez, PT Outpatient Therapy Subjective History Subjective History Pt reports h/o chronic right foot and ankle since right foot fx in 2012. Pt reports over time the right ankle/foot pain became more constant, with significant exacerbation over the last ~6 month. Pt reports most of the right foot and ankle pain is located on top of right foot, and the lateral area. Pt reports left foot and ankle has been going on for ~3 months, located in same areas as right (dorsum of foot, lateral aspect of foot and ankle). Recent imaging of right ankle/foot ( MRI) has revealed some mid foot bony stress reaction, and partial achilles tendon tear. PMH: fibromyalgia, DM w/ diabetic neuropathy, Right knee pain/injury ~2 weeks ago- awaiting MRI New diagnosis of cancer in past 12 No months? Chief Complaint Pain,Stiff,Swelling Symptom Type Ache,Throb,Sharp,Dull,Stabbing Symptoms Relieved By Rest/Positioning,Heat,Ice,OTC Meds,Prescription Meds Symptoms Aggravated By Standing,Physical Activity, Walking Prior Functional Limitations Housework,Standing,Walking Current Functional Limitations Housework,Standing,Walking Symptom Description Constant but Variable Level of pain today (0-10) 8 Pain scale - at its best (0-10) 8 Pain scale - at its worst (0-10) 10 Ankle/Foot Eval Gait Observation General Gait Pattern Observation Antalgic Gait,Wide Based Gait, Decrease Weight Bear (R) Assistive Device Ambulation Assistive Device None Palpation Tenderness left Ankle/Foot Palpation Findings Tenderness Ankle/Foot Palpation Overall Comment 3/4 peroneal tendons, post tib tendon ATF TTP positive right Ankle/Foot Palpation Findings Tenderness Ankle/Foot Palpation Overall Comment 3/4 peroneal tendons, post tib tendon ATF TTP positive ROM left Ankle/Foot Dorsiflexion w/Knee Extended 0-8 Active Range Motion (degrees) Ankle/Foot Plantar Flexion Active Range 0-45 of Motion (degrees) Ankle/Foot Eversion Active Range of 0-12 Motion (degrees) Ankle/Foot Inversion Active Range of 0-31 Motion (degrees) Ankle/Foot ROM Limitations Pain right Ankle/Foot Dorsiflexion w/Knee Extended 0-14 Active Range Motion (degrees) Ankle/Foot Plantar Flexion Active Range 0-51 of Motion (degrees) Ankle/Foot Eversion Active Range of 0-10 Motion (degrees) Ankle/Foot Inversion Active Range of 0-32 Motion (degrees) Ankle/Foot ROM Limitations Pain MMT bilateral Ankle Dorsiflexion Strength Grade 4 Good Ankle Plantarflexion Strength Grade 4 Good Foot Eversion Strength Grade 4- Good- Foot Inversion Strength Grade 4- Good- Special Tests Ankle Anterior Drawer Test Negative Left,Negative Right Talar Tilt Test Negative Left,Negative Right Foot Compression Test Positive Left,Positive Right Foot Interdigital Neuroma Test Positive Left,Positive Right Foot/Heel Tap/Percussion Test Negative Left,Negative Right Lower Extremity Functional Index Activities Today, do you or would you have any difficulty at all with: a.Any of your usual work, housework or Quite a bit of difficulty school activities b. Your usual hobbies, recreational or Quite a bit of difficulty sporting activities c. Getting into or out of the bath A little bit of difficulty d. Walking between rooms A little bit of difficulty e. Putting on your shoes or socks A little bit of difficulty f. Squatting Moderate difficulty g. Lifting an object, like a bag of A little bit of difficulty groceries from the floor h. Performing light activities around A little bit of difficulty your home i. Performing heavy activities around A little bit of difficulty your home j. Getting into or out of a car A little bit of difficulty k. Walking 2 blocks Quite a bit of difficulty l. Walking a mile Quite a bit of difficulty m. Going up or down 10 stairs (about 1 Moderate difficulty flight of stairs) n. Standing for 1 hour Moderate difficulty o. Sitting for 1 hour Moderate difficulty p. Running on even ground Extreme difficulty or unable to perform activity q. Running on uneven ground Extreme difficulty or unable to perform activity r. Making sharp turns while running fast Extreme difficulty or unable to perform activity s. Hopping Extreme difficulty or unable to perform activity t. Rolling over in bed A little bit of difficulty LEFI Score Lower Extremity Functional Index Score 36 Outpatient Therapy Assessment Impairments Problems/Impairmments Palpation Tenderness,Impaired Range of Motion,Impaired Strength,Impaired Gait Pattern ,Impaired Walking,Impaired Standing,Impaired Household Care,Increased Edema, Subjective C/O Pain,Impaired Self Care/Self Management Prognosis Rehab Potential Good Clinical Impression Consistent with Diagnosis Yes Short Term Goals Number of Weeks 4 Decreased Palpation Tenderness Yes: 1-2/4 bilateral feet/ ankles Increase Range of Motion Yes: 80% of WFL B/L ANKLE AROM Increase Strength Yes: 4/5 B/L FOOT/ANKLE MM Increase Ability to Walk Yes: 15MIN Increase Ability to Stand Yes: 15MIN Improve Ability For Household Care Yes: 15MIN Decrease Subjective C/O Pain Yes: 4-5/10 W/ABOVE ACTIVITIES Patient to be Ind w/ HEP Yes [facility] Goals Number of Weeks 8-10 Decreased Palpation Tenderness Yes: 0-1/4 B/L FEET/ANKLES Increase Range of Motion Yes: WFL B/L ANKLE/FOOT AROM Increase Strength Yes: 4+-5/5 B/L FEET/ANKLE MM Improve Gait Pattern without Assistive Yes: WFL ON LEVEL TERRAIN Device Increase Ability to Walk Yes: 30MIN Increase Ability to Stand Yes: 30MIN Improve Ability For Household Care Yes: 30MIN Improve LEFI Score Yes: 55-65 Decrease Subjective C/O Pain Yes: 0-3/10 W/ABOVE ACTIVITIES Patient to be Ind w/ Advanced HEP Yes Outpatient Therapy Plan of Care Treatment Plan May Include Therapeutic Exercise Including Home Yes Exercise Program Manual Therapy Techniques Yes Neuromuscular Re-education Yes Therapeutic Activities to Return to Yes Previous Functional/Work Level Gait Training Yes ADL/Self Care Education Yes Dry Needling Yes Thermal Modalities Yes Electrical Stimulation Yes Ultrasound/Phonophoresis Yes Iontophoresis Yes Orthotics/Bracing/Splinting Yes Vasopneumatic Compression Pump Yes Manual Lymphatic Drainage Yes Eval/Re-Eval Yes Aquatic Therapy Yes Frequency Times per week 2-3 Duration Number of Weeks 8-10 Addendums This patient is a candidate for social No or vocational rehab? Patient/Guardian verbally acknowledges Yes understanding of treatment program and consents to further treatment? Patient/Guardian verbally acknowledges Yes understanding of diagnosis, prognosis and goals for treatment? Eval Complexity PT Charges 09420 - High Complexity Shoulder/Elbow Eval Shoulder Objective Measurements Elbow Objective Measurements PHYSICIAN CERTIFICATION: I certify the specified therapy services for Sonya Bui are required, authorized, and reviewed every 30 days.
== END 2024-05-07 23:59 | disposition home or self-care (01) ==
LOC: PT 08:46
PROVIDERS: PCP Family Medicine; Visit Provider Nurse Practitioner
DX: M19.071 Primary osteoarthritis, right ankle and foot (principal); M84.374D Stress fracture, right foot, subsequent encounter for fracture with routine healing; R60.0 Localized edema; M76.71 Peroneal tendinitis, right leg
CPT/HCPCS: 97014; 97016; 97035; 97163; G0283

== ENCOUNTER 2024-05-12 11:56 | Outpatient (RCR) | payer BC, SELFPAY | END 2024-05-12 23:59 | disposition home or self-care (01) | LOC: PT 11:56 | PROVIDERS: Visit Provider Physician Assistant | DX: M25.561 Pain in right knee (principal); M23.91 Unspecified internal derangement of right knee | CPT/HCPCS: 97760 ==

== ENCOUNTER 2024-05-16 14:23 | Emergency (ER) | payer BC, SELFPAY ==
[2024-05-16] VITALS (7 sets, daily range): BP systolic 122–159; BP diastolic 86–97; PULSE 60–123; RESP 18–20; TEMP 36.7–37.1; O2SAT 91–98; BMI 45.4
--- NOTE | 2024-05-16 14:43 | PC.NURSE ---
DR CAMACHO AT BEDSIDE
--- NOTE | 2024-05-16 14:53 | CT_ITS ---
PROCEDURE INFORMATION: Exam: CT Right Lower Extremity, Knee Exam date and time: 05/16/2024 3:18 PM Age: 63 years old Clinical indication: Pain; Knee; Right; Additional info: Pain walking, swelling TECHNIQUE: Imaging protocol: CT of the right lower extremity without contrast was performed. Exam focused on the knee. Radiation optimization: All CT scans at this facility use at least one of these dose optimization techniques: automated exposure control; mA and/or kV adjustment per patient size (includes targeted exams where dose is matched to clinical indication); or iterative reconstruction. COMPARISON: CR XR KNEE RT 3V 05/05/2024 9:46 AM FINDINGS: Bones/joints: Tiny possible acute fracture through medial aspect traction spurring of the patella with areas of more chronic appearing fragmentation of same. No other fracture is seen. There is limited overlying soft tissue swelling. Mild tricompartmental osteoarthritis. Soft tissues: See Bones/joints finding. IMPRESSION: Tiny possible acute fracture through medial aspect traction spurring of the patella with areas of more chronic appearing lucency below the spurs. No other fracture is seen. There is limited overlying soft tissue swelling.
--- NOTE | 2024-05-16 14:56 | ED_ITS ---
Discharge Plan Disposition Chief Complaint: Extremity Problem,Nontraumatic Prescriptions Prescriptions: New doxycycline hyclate 100 mg capsule 100 mg PO BID 10 Days Qty: 20 0RF No Action triamcinolone acetonide 0.5 % cream 1 applic topical BID Qty: 15 2RF Rx Instructions: apply to rash left thigh prn itching ibuprofen-famotidine [Duexis] 800-26.6 mg tablet 1 tab PO TID 30 Days Qty: 90 1RF albuterol sulfate [Ventolin HFA] 90 mcg/actuation HFA aerosol inhaler 2 puff inhalation Q6H PRN aspirin [Adult Aspirin Regimen] 81 mg tablet,delayed release (DR/EC) 81 mg PO DAILY atorvastatin 40 mg tablet 40 mg PO HS (DME) blood sugar diagnostic Strip See Rx Instructions .Route Rx Instructions: As directed esomeprazole magnesium 40 mg capsule,delayed release(DR/EC) 40 mg PO DAILY hydralazine 50 mg tablet 50 mg PO QID (DME) pen needle, diabetic [Comfort EZ Pen [place]] 32 gauge x 5/32 needle See Rx Instructions .Route Rx Instructions: As directed (DME) lancets 28 gauge misc See Rx Instructions .Route Rx Instructions: As directed lisinopril 40 mg tablet 40 mg PO DAILY metformin 500 mg tablet extended release 24 hr 1,000 mg PO BID Rx Instructions: with meals potassium chloride 10 mEq capsule, extended release 10 meq PO DAILY pregabalin [Lyrica] 50 mg capsule 50 mg PO TID Qty: 90 2RF allopurinol 100 mg tablet 50 mg PO DAILY Qty: 45 0RF insulin glargine [Lantus Solostar U-100 Insulin] 100 unit/mL (3 mL) insulin pen 20 unit SQ BID Qty: 15 2RF metoprolol succinate 100 mg tablet extended release 24 hr 100 mg PO DAILY Qty: 90 0RF amlodipine 5 mg tablet 5 mg PO DAILY Qty: 90 0RF Referrals Follow up/Referrals: Jamin Felix MD [Primary Care Provider] - See instructions Activity Restrictions/Add. Instructions Additional Instructions/Restrictions: Call your family doctor to establish care for this visit to the emergency department and schedule follow-up within 48 hours to ensure improvement. If you have any worsening of your condition or any other concerning signs or symptoms, return to the emergency department or your primary care doctor for further evaluation. Antibiotics twice daily for 10 days. 324 mg aspirin daily until following up with orthopedics. Knee immobilizer at all times. If you have fevers, vomiting, redness of your knee, swelling or bulging of the knee, intractable pain, or any other concerns return to the emergency department promptly for further evaluation. Clinical Impressions Clinical Impression: Pain and swelling of right knee, Patellar fracture Print Language Print Language: Persian Discharge ED Provider: Lalo Cancino General Adult HPI <Michael Cline MD - Last Filed: 05/16/24 15:03> General Chief complaint: Extremity Problem,Nontraumatic Stated complaint: Right knee throbbing pain Time Seen by Provider: 05/16/24 14:41 Mode of Arrival: Wheelchair Source of Information: Patient Limitations: No Limitations Description of Symptoms (Recalled from ER Triage Doc. by RN): r knee pain. has seen multiple doctors. scheduled for an MRI on jun 01. History of Present Illness HPI narrative: Patient is a 63-year-old female past medical history of insulin-dependent diabetes presents emergency department for evaluation of atraumatic right knee pain. Patient was walking when she felt a sudden severe pain in her right knee which has limited her ability to bear weight with a walker. She has fully been able to bear weight prior to this. She got an x-ray on 05 05 which shows a subchondral lucency in the medial tibial plateau for which CT was recommended. Since then she has had limited ability to bear weight, persistent severe pain at her knee, no other joint involvement, no trauma. No fevers. Due to persistent pain she presents here for continued evaluation. No other acute complaints at this time Related Data Home Medications ?Medication ?Instructions ?Recorded ?Confirmed albuterol sulfate 90 mcg/actuation 2 puff inhalation Q6H PRN 02/02/24 05/12/24 aerosol inhaler (Ventolin HFA) aspirin 81 mg tablet,delayed 81 mg PO DAILY 02/02/24 05/12/24 release (Adult Aspirin Regimen) atorvastatin 40 mg tablet 40 mg PO HS 02/02/24 05/12/24 blood sugar diagnostic 02/02/24 05/12/24 esomeprazole magnesium 40 mg 40 mg PO DAILY 02/02/24 05/12/24 capsule,delayed release hydralazine 50 mg tablet 50 mg PO QID 02/02/24 05/12/24 lancets 28 gauge 02/02/24 05/12/24 lisinopril 40 mg tablet 40 mg PO DAILY 02/02/24 05/12/24 metformin 500 mg tablet,extended 1,000 mg PO BID 02/02/24 05/12/24 release 24 hr pen needle, diabetic 32 gauge x 02/02/24 05/12/24 5/32 (Comfort EZ Pen [place]) potassium chloride 10 mEq 10 meq PO DAILY 02/02/24 05/12/24 capsule,extended release Previous Rx's ?Medication ?Instructions ?Recorded pregabalin 50 mg capsule (Lyrica) 50 mg PO TID #90 caps 02/12/24 allopurinol 100 mg tablet 50 mg (1/2 x 100 mg) PO DAILY #45 02/13/24 tabs insulin glargine 100 unit/mL (3 20 unit (0.2 mL) SQ BID #15 mL 02/24/24 mL) subcutaneous pen (Lantus Solostar U-100 Insulin) triamcinolone acetonide 0.5 % 1 applic topical BID #15 grams 03/16/24 topical cream metoprolol succinate 100 mg 100 mg PO DAILY #90 tabs 04/06/24 tablet,extended release 24 hr amlodipine 5 mg tablet 5 mg PO DAILY #90 tabs 04/12/24 ibuprofen 800 mg-famotidine 26.6 1 tab PO TID 30 days #90 tabs 05/04/24 mg tablet (Duexis) doxycycline hyclate 100 mg capsule 100 mg PO BID 10 days #20 caps 05/16/24 Allergies Allergy/AdvReac Type Severity Reaction Status Date / Time Penicillins Allergy Verified 05/12/24 09:42 sulfamethoxazole (From Allergy Verified 05/12/24 09:42 Bactrim) trimethoprim (From Bactrim) Allergy Verified 05/12/24 09:42 clonidine AdvReac Mild Hypotension Verified 05/12/24 09:42 gabapentin AdvReac Mild Anxiety Verified 05/12/24 09:42 PFS <Michael Cline MD - Last Filed: 05/16/24 15:03> [facility] Disclaimer: The information contained in this section may have been updated after the patient was seen, as this information can be updated by other users. Medical History Cuboid fracture Chronic kidney disease G3a Hypomagnesemia Arthritis Screening mammogram for breast cancer Gout Uric 8.4 Neuropathy due to herpes zoster Diabetic neuropathy Right ankle pain Right foot pain GERD (gastroesophageal reflux disease) Diabetes Hyperlipidemia Hypertension Acute lower gastrointestinal bleeding Hemorrhoids Left foot pain Surgical History H/O hysterectomy with oophorectomy Hx laparoscopic cholecystectomy around 2009 No pertinent past surgical history Family History Family/Other Diabetes Hyperlipidemia Hypertension Social History Smoking Status: Never smoker alcohol intake: never substance use type: denies use current occupational status: disabled Travel in the last 8 weeks: None household members: family lives independently: Yes marital status: legally service: No mcfp: No Hx Recent Travel: No Other Medical History Have you received the Pneumonia Vaccine: Yes <Michael Cline MD - Last Filed: 05/16/24 15:03> ROS Obtained: Yes Systems reviewed as appropriate & no additional complaints except as documented Physical Exam <Michael Cline MD - Last Filed: 05/16/24 15:03> General General appearance: alert Comment: Appearing in pain in bed Head Head exam: atraumatic and normocephalic Eye Eye exam: Present PERRL ENT ENT exam: Present mucous membranes moist Neck Neck exam: Present normal inspection Chest Chest inspection: Present normal inspection and symmetric chest wall rise Respiratory Respiratory exam: Absent respiratory distress Cardiovascular Cardiovascular exam: Present regular rate and normal rhythm Abdominal Exam Abdominal exam: Present soft Extremities Exam Extremities exam: Present other (Swelling with slight warmth of the right knee, extensor mechanism intact, possible dorsal pedal pulse on the right, no asymmetric swelling of the right lower extremity compared to the left. Limited active range of motion at the knee secondary to pain); Absent full ROM (Limited active range of motion of the right knee secondary to pain) Neurological Exam Neurological exam: Present alert Psychiatric Psychiatric exam: Present normal affect Skin Skin exam: Present warm and dry Medical Decision Making <Michael Cline MD - Last Filed: 05/16/24 15:03> Medical Records Screening: Per USPSTF and CDC recommendations, given the prevalence of disease in our region, it is our hospital?s policy to screen for HIV and viral Hepatitis for all patients aged 18 and over and those with ongoing risk factors. Jean Inquiry Pt receiving controlled substance: No Vital Signs: 05/16/24 14:26 05/16/24 15:00 05/16/24 15:30 Temperature 98.7 F Temperature Source Oral Pulse Rate 122 H 121 H Pulse Rate [Right] 123 H Respiratory Rate 20 Blood Pressure 146/97 H 159/92 H Blood Pressure [Right Arm] 122/86 Blood Pressure Mean 113 107 Blood Pressure Mean [Right Arm] 98 02 Sat by Pulse Oximetry 96 95 94 L Oxygen Delivery Method Room Air Room Air Room Air 05/16/24 16:01 05/16/24 17:35 Temperature Temperature Source Pulse Rate 60 89 Pulse Rate [Right] Respiratory Rate Blood Pressure 158/97 H 156/94 H Blood Pressure [Right Arm] Blood Pressure Mean 116 Blood Pressure Mean [Right Arm] 02 Sat by Pulse Oximetry 91 L 98 Oxygen Delivery Method Room Air Room Air Lab Data Lab Results 05/16/24 15:15: WBC 10.5, RBC 4.01 L, Hgb 11.1 L, Hct 33.9 L, MCV 84.4, MCH 27.6, MCHC 32.6, RDW 15.1, Plt Count 387, MPV 7.8, Neut % (Auto) 71.4, Lymph % (Auto) 17.5, [place] % (Auto) 4.6, Eos % (Auto) 5.7, Baso % (Auto) 0.8, Neut # (Auto) 7.5, Lymph # (Auto) 1.8, [place] # (Auto) 0.5, Eos # (Auto) 0.6 H, Baso # (Auto) 0.1, ESR 56 H, VBG pH 7.42 H, VBG pCO2 38.8, VBG pO2 130.5 H, VBG HCO3 24.7, VBG Total CO2 25.9, VBG O2 Saturation 99.3 H, VBG Base Excess 0.3, VBG Lactic Acid 3.0 H, Sodium 140, Potassium 4.2, Chloride 103, Carbon Dioxide 28, Anion Gap 13.2, BUN 16, Creatinine 0.90, Estimated Creat Clear 57, Estimated GFR 64, Est GFR ( Amer) 77, Glucose 227 H, Calcium 9.8, Total Bilirubin 0.4, AST 31, ALT 28, Alkaline Phosphatase 98, C-Reactive Protein 21.2 H, Total Protein 7.9, Albumin 4.1, Globulin 3.8 H, Albumin/Globulin Ratio 1.1 05/16/24 15:15 05/16/24 15:15 Orders (Tests/Meds): ED MEDICATIONS Discontinued Medications Generic Name Dose Route Start Last Admin Trade Name Gumaro PRN Reason Stop Dose Admin Acetaminophen 1,000 mg 05/16/24 14:55 05/16/24 15:25 Acetaminophen 500mg Tab PO 05/16/24 14:56 1,000 mg ONCE ONE Administration Doxycycline Hyclate 100 mg 05/16/24 16:45 05/16/24 17:18 Doxycycline Hycl 100 Mg Tablet PO 05/16/24 16:46 100 mg ONCE ONE Administration Ketorolac Tromethamine 30 mg 05/16/24 14:55 05/16/24 15:25 Ketorolac 30mg/Ml Vial IV 05/16/24 14:56 30 mg ONCE ONE Administration Oxycodone HCl 5 mg 05/16/24 14:55 05/16/24 15:25 Oxycodone 5mg Immediate Release Tablet PO 05/16/24 14:56 5 mg ONCE ONE Administration ORDERS Category Date Time Status CT knee RT wo con Stat Cat Scan 05/16/24 14:53 Completed POCUS Point of Care (ER Only) Stat Exams 05/16/24 16:45 Ordered CBC w/Auto Diff [Complete Blood Count Auto Diff] Stat Lab 05/16/24 15:15 Completed CMP [Comprehensive Metabolic Panel] Stat Lab 05/16/24 15:15 Completed CRP [C-Reactive Protein] Stat Lab 05/16/24 15:15 Completed ESR [Erythrocyte Sedimentation Rate] Stat Lab 05/16/24 15:15 Completed VBG [Venous Blood Gas] Stat RT 05/16/24 15:15 Completed Medical Decision Narrative: In summary patient is 63-year-old female past medical history described above presents emergency department for evaluation of atraumatic right knee pain. Patient is hemodynamically stable nontoxic-appearing upon arrival, afebrile. I suspect that she has a subchondral fracture of her right knee for which CT will be ordered. She is tachycardic however I think it is secondary to pain. She does have insulin-dependent diabetes so screen for DKA will be conducted with basic hematologic labs. CRP will be obtained. Differential also includes crystalline arthropathy, septic arthritis, among others. She appears systemically well. Initial inventions include Tylenol, Toradol, oxycodone. Workup largely pending at time of transition of care to the oncoming physician, Dr. Cancino. <Lalo Cancino MD - Last Filed: 05/16/24 17:59> Vital Signs: 05/16/24 14:26 05/16/24 15:00 05/16/24 15:30 Temperature 98.7 F Temperature Source Oral Pulse Rate 122 H 121 H Pulse Rate [Right] 123 H Respiratory Rate 20 Blood Pressure 146/97 H 159/92 H Blood Pressure [Right Arm] 122/86 Blood Pressure Mean 113 107 Blood Pressure Mean [Right Arm] 98 02 Sat by Pulse Oximetry 96 95 94 L Oxygen Delivery Method Room Air Room Air Room Air 05/16/24 16:01 05/16/24 17:35 Temperature Temperature Source Pulse Rate 60 89 Pulse Rate [Right] Respiratory Rate Blood Pressure 158/97 H 156/94 H Blood Pressure [Right Arm] Blood Pressure Mean 116 Blood Pressure Mean [Right Arm] 02 Sat by Pulse Oximetry 91 L 98 Oxygen Delivery Method Room Air Room Air Lab Data Lab Results 05/16/24 15:15: WBC 10.5, RBC 4.01 L, Hgb 11.1 L, Hct 33.9 L, MCV 84.4, MCH 27.6, MCHC 32.6, RDW 15.1, Plt Count 387, MPV 7.8, Neut % (Auto) 71.4, Lymph % (Auto) 17.5, [place] % (Auto) 4.6, Eos % (Auto) 5.7, Baso % (Auto) 0.8, Neut # (Auto) 7.5, Lymph # (Auto) 1.8, [place] # (Auto) 0.5, Eos # (Auto) 0.6 H, Baso # (Auto) 0.1, ESR 56 H, VBG pH 7.42 H, VBG pCO2 38.8, VBG pO2 130.5 H, VBG HCO3 24.7, VBG Total CO2 25.9, VBG O2 Saturation 99.3 H, VBG Base Excess 0.3, VBG Lactic Acid 3.0 H, Sodium 140, Potassium 4.2, Chloride 103, Carbon Dioxide 28, Anion Gap 13.2, BUN 16, Creatinine 0.90, Estimated Creat Clear 57, Estimated GFR 64, Est GFR ( Amer) 77, Glucose 227 H, Calcium 9.8, Total Bilirubin 0.4, AST 31, ALT 28, Alkaline Phosphatase 98, C-Reactive Protein 21.2 H, Total Protein 7.9, Albumin 4.1, Globulin 3.8 H, Albumin/Globulin Ratio 1.1 Orders (Tests/Meds): ED MEDICATIONS Discontinued Medications Generic Name Dose Route Start Last Admin Trade Name Freq PRN Reason Stop Dose Admin Acetaminophen 1,000 mg 05/16/24 14:55 05/16/24 15:25 Acetaminophen 500mg Tab PO 05/16/24 14:56 1,000 mg ONCE ONE Administration Doxycycline Hyclate 100 mg 05/16/24 16:45 05/16/24 17:18 Doxycycline Hycl 100 Mg Tablet PO 05/16/24 16:46 100 mg ONCE ONE Administration Ketorolac Tromethamine 30 mg 05/16/24 14:55 05/16/24 15:25 Ketorolac 30mg/Ml Vial IV 05/16/24 14:56 30 mg ONCE ONE Administration Oxycodone HCl 5 mg 05/16/24 14:55 05/16/24 15:25 Oxycodone 5mg Immediate Release Tablet PO 05/16/24 14:56 5 mg ONCE ONE Administration ORDERS Category Date Time Status CT knee RT wo con Stat Cat Scan 05/16/24 14:53 Completed POCUS Point of Care (ER Only) Stat Exams 05/16/24 16:45 Ordered CBC w/Auto Diff [Complete Blood Count Auto Diff] Stat Lab 05/16/24 15:15 Completed CMP [Comprehensive Metabolic Panel] Stat Lab 05/16/24 15:15 Completed CRP [C-Reactive Protein] Stat Lab 05/16/24 15:15 Completed ESR [Erythrocyte Sedimentation Rate] Stat Lab 05/16/24 15:15 Completed VBG [Venous Blood Gas] Stat RT 05/16/24 15:15 Completed Medical Decision Narrative: In summary patient is 63-year-old female past medical history described above presents emergency department for evaluation of atraumatic right knee pain. Patient is hemodynamically stable nontoxic-appearing upon arrival, afebrile. I suspect that she has a subchondral fracture of her right knee for which CT will be ordered. She is tachycardic however I think it is secondary to pain. She does have insulin-dependent diabetes so screen for DKA will be conducted with basic hematologic labs. CRP will be obtained. Differential also includes crystalline arthropathy, septic arthritis, among others. She appears systemically well. Initial inventions include Tylenol, Toradol, oxycodone. Workup largely pending at time of transition of care to the oncoming physician, Dr. Cancino. Barak: I assumed primary responsibility for this patient after signout from previous physician. On my evaluation, patient still in pain, able to range knee. She states that she is able to walk on it, but has modest pain. When asked to pinpoint the pain, she states it is anterior on the knee on the patella. No erythema, effusion. no pain with patellar glide. No pain with passive range of motion of that knee, but significant pain with active range of motion of the knee. She also has pain with pressure applied to patellar tendon and ligament. Independent interpretation of workup with normal white blood cell count, but elevated ESR and CRP. Lactic acid elevated at 3.0. Independent interpretation of imaging with fracture through patella with soft tissue swelling, but no joint effusion. Bedside [id number] ultrasound was performed. Patient does not have a joint effusion, but she has overlying cellulitis and cobblestoning of the subcutaneous tissue. Given this, I feel this is low likelihood of being septic joint. Patient has no pain with passive range of motion, focal tenderness over the patella, CT evidence of patellar injury without effusion. She also has negative ultrasound. Regarding labs, ESR and CRP as well as lactate were explained with patient. It was explained that septic joint cannot be ruled out, but given today's workup and patient's symptoms, I feel it is unlikely. Patient feels comfortable going home and following up with close return precautions with antibiotic therapy for cellulitis overlying the left knee. Further conversation also reveals that patient was pushing around furniture with her knees a couple weeks prior to this and shortly thereafter is when this injury and pain started 2 days after that. Because of this, I feel she is appropriate for outpatient management. Close return precautions were given and she voiced her understanding. Because patient at baseline without signs or symptoms of clinical decompensation, deemed appropriate for discharge. Results were relayed to patient who voiced understanding and were agreeable to outpatient management and follow up. I discussed my clinical impression with patient and answered all questions. At this time, the evidence for any other entities in the differential is insufficient to warrant any further testing or ED observation. This was explained as well. Advisory was given that persistent or worsening symptoms require further evaluation. I confirmed the understanding of this discussion. Procedures <Lalo Cancino MD - Last Filed: 05/16/24 17:59> Limited Ultrasound Indication:: Limited soft tissue ultrasound Indication: Right knee pain Identified structures: Location: Right knee Findings: Cellulitis about right knee with no evidence of joint effusion. Structurally intact. Cortical defect anterior patella Impression: Cortical defect anterior patella. Cellulitis about right knee. No evidence of joint effusion Images were saved to permanent archive The study was technically adequate Soft Tissue CPT Codes: CPT Neck: 25099-86 CPT Upper extremity: 03734-70 CPT Axilla: 88689-67 CPT Chest wall: 55616-87 CPT Breast: 11602-64-QH/LT (complete), 97759-63-JQ/LT (limited), CPT Upper Back: 80179-48 CPT Lower Back: 35251-18 CPT Abdominal Wall: 06426-38 CPT Pelvic Wall: 47326-07 CPT Lower Extremity: 80742-68 CPT Other Soft Tissue: 27642-30 This study was performed by me, and I personally interpreted all images/videos. Based on my clinical judgement, these images were adequate and did not necessitate further imaging. Critical Care <Michael Cline MD - Last Filed: 05/16/24 15:03> Critical Care Time Critical Care Time: No
[2024-05-16 15:24] LABS: Basophils # 0.1 K/mm3 (0-0.2); Basophils % 0.8 % (0.1-2.0); Eosinophils # 0.6 K/mm3 (0.0-0.4); Eosinophils % 5.7 % (0.1-12.0); Hematocrit 33.9 % (37.0-47.0); Hemoglobin 11.1 g/dL (12.2-16.2); Lymphocytes # 1.8 K/mm3 (0.7-4.5); Lymphocytes % 17.5 % (10-50); Mean Corpuscular HGB Conc 32.6 g/dL (31.8-35.4); Mean Corpuscular Hemoglobin 27.6 pg (27.0-31.2); Mean Corpuscular Volume 84.4 fl (81-99); Mean Platelet Volume 7.8 fl (7.4-10.4); Monocytes # 0.5 K/mm3 (0.1-1.0); Monocytes % 4.6 % (1.7-9.3); Neutrophils # 7.5 K/mm3 (1.8-7.8); Neutrophils % 71.4 % (37.0-80.0); Platelet Count 387 K/mm3 (142-424); Red Blood Count 4.01 M/mm3 (4.20-5.40); Red Cell Distribution Width 15.1 % (11.5-17.5); White Blood Count 10.5 K/mm3 (4.8-10.8)
[2024-05-16 15:25] LABS: VBG Base Excess 0.3 mmol/L (-2.4-2.3); VBG HCO3 24.7 mmol/L (23-30); VBG Oxygen Saturation 99.3 % (50-70); VBG PCO2 38.8 mmol/L (35-51); VBG PH 7.42 mmol/L (7.31-7.41); VBG PO2 130.5 mmol/L (28-40); VBG Total CO2 25.9 mmol/L (23-27)
[2024-05-16] MEDS: KETOROLAC 30MG/ML VIAL 30 MG IV (15:25)
[2024-05-16] MEDS: OXYCODONE 5MG IMMEDIATE RELEASE TABLET 5 MG PO (15:25)
[2024-05-16] MEDS: ACETAMINOPHEN 500MG TAB 1000 MG PO (15:25)
[2024-05-16 15:31] LABS: Albumin Level 4.1 g/dl (3.5-5.0); Chloride 103 mmol/L (98-107); Sodium 140 mmol/L (136-145)
[2024-05-16 15:32] LABS: Potassium 4.2 mmoL/L (3.5-5.1)
[2024-05-16 15:34] LABS: Alanine Aminotransferase 28 U/L (12-78); Anion Gap 13.2 mEq/L (5-15); Aspartate Amino Transferase 31 U/L (14-36); Blood Urea Nitrogen 16 mg/dl (7-17); Carbon Dioxide 28 mmol/L (22.0-30.0); Creatinine Clearance Estimated 57 mL/min (50-200); Estimated Glomerular Filt Rate 64 ml/min (>60); GFR (African American) 77 ML/MIN (>60)
[2024-05-16 15:35] LABS: Albumin/Globulin Ratio 1.1 (1.1-1.8); Alkaline Phosphatase 98 U/L (38-126); Bilirubin,Total 0.4 mg/dl (0.2-1.3); Calcium 9.8 mg/dl (8.4-10.2); Globulin 3.8 g/dL (1.3-3.2); Glucose 227 mg/dl (74-100); Total Protein,Serum 7.9 g/dl (6.3-8.2)
[2024-05-16 15:40] LABS: C-Reactive Protein 21.2 mg/L (0-4)
[2024-05-16 16:24] LABS: Erythrocyte Sedimentation Rate 56 mm/hr (0-30)
[2024-05-16] MEDS: DOXYCYCLINE HYCL 100 MG TABLET PO (17:18)
[2024-05-16 19:27] LABS: Reflex Lactic Add Lactic Reflex
--- NOTE | 2024-05-16 19:31 | PC.NURSE ---
Spoke w/ Mgr for Admissions. She states she'll probably not be able to fix this tonight. Leave the patient om the board until they're able to fix it.
== END 2024-05-16 18:20 | disposition home or self-care (01) ==
PROVIDERS: Emergency Medicine; Emergency Provider Emergency Medicine; PCP Family Medicine
DX: S82.001A Unspecified fracture of right patella, initial encounter for closed fracture (principal); M25.561 Pain in right knee; R00.0 Tachycardia, unspecified; X58.XXXA Exposure to other specified factors, initial encounter; Y93.89 Activity, other specified; Y92.9 Unspecified place or not applicable
CPT/HCPCS: 73700; 80053; 82803; 85025; 85651; 86140; 96374; 99285; J1885

== ENCOUNTER 2024-06-01 08:51 | Outpatient (CLI) | payer BC, SELFPAY ==
--- NOTE | 2024-06-01 08:56 | MR_ITS ---
FINAL REPORT CLINICAL HISTORY: Right Knee pain FINDINGS: Multiplanar MR imaging of the right knee was performed without contrast. The medial and lateral menisci are intact without evidence of meniscal tear. The anterior and posterior cruciate ligaments are intact. The medial collateral ligament and lateral ligamentous complex are intact. There are foci of patellar tendinitis. The patellar and quadriceps tendons are otherwise intact. There is abnormal signal of the lateral patella consistent with a small nondisplaced fracture with adjacent bone marrow edema. There is a partial tear involving the patellar attachment of the lateral retinaculum. Prepatellar edema or hemorrhage is identified. No focal abnormality is identified of the articular cartilage. Moderate joint effusion is seen. The musculature is intact. No soft tissue mass or cyst is identified. IMPRESSION: Small nondisplaced fracture of the patella. Partial tear of the lateral retinaculum. Prepatellar edema or hemorrhage. Reviewed, Interpreted and Dictated by Reynaldo Thompson III, MD Transcribed by Mel Ledbetter Authenticated and [facility]
== END 2024-06-01 23:59 | disposition home or self-care (01) ==
LOC: RAD 08:51
PROVIDERS: PCP Family Medicine; Visit Provider Physician Assistant
DX: M25.561 Pain in right knee (principal); M23.91 Unspecified internal derangement of right knee
CPT/HCPCS: 73721

== ENCOUNTER 2024-06-15 10:10 | Outpatient (CLI) | payer BC, SELFPAY ==
[2024-06-15 18:52] LABS: Magnesium 1.9 mg/dl (1.6-2.3); Uric Acid 9.3 mg/dl (2.5-6.2)
== END 2024-06-15 23:59 | disposition home or self-care (01) ==
LOC: LAB.DROPOF 06-16 10:49
PROVIDERS: PCP Family Medicine; Visit Provider Family Medicine
DX: M10.9 Gout, unspecified (principal); E83.42 Hypomagnesemia
CPT/HCPCS: 83735; 84550

== ENCOUNTER 2024-09-13 10:50 | Outpatient (CLI) | payer OTHER, SELFPAY ==
[2024-09-13 19:25] LABS: Basophils # 0.3 K/mm3 (0-0.2); Basophils % 4.4 % (0.1-2.0); Eosinophils # 1.4 K/mm3 (0.0-0.4); Hematocrit 36.5 % (37.0-47.0); Hemoglobin 11.2 g/dL (12.2-16.2); Lymphocytes # 1.8 K/mm3 (0.7-4.5); Lymphocytes % 27.6 % (10-50); Mean Corpuscular HGB Conc 30.7 g/dL (31.8-35.4); Mean Corpuscular Hemoglobin 26.7 pg (27.0-31.2); Mean Corpuscular Volume 86.9 fl (81-99); Mean Platelet Volume 11.7 fl (7.4-10.4); Monocytes # 0.4 K/mm3 (0.1-1.0); Monocytes % 6.6 % (1.7-9.3); Neutrophils # 2.5 K/mm3 (1.8-7.8); Neutrophils % 39.1 % (37.0-80.0); Platelet Count 282 K/mm3 (142-424); Red Cell Distribution Width 15.9 % (11.5-17.5); White Blood Count 6.4 K/mm3 (4.8-10.8)
[2024-09-13 20:35] LABS: Albumin Level 4.5 g/dl (3.5-5.0); Chloride 99 mmol/L (98-107); Sodium 140 mmol/L (136-145)
[2024-09-13 20:36] LABS: Potassium 4.3 mmoL/L (3.5-5.1)
[2024-09-13 20:38] LABS: Alanine Aminotransferase 26 U/L (12-78); Albumin/Globulin Ratio 1.5 (1.1-1.8); Alkaline Phosphatase 102 U/L (38-126); Anion Gap 14.3 mEq/L (5-15); Aspartate Amino Transferase 31 U/L (14-36); Bilirubin,Total 0.3 mg/dl (0.2-1.3); Blood Urea Nitrogen 17 mg/dl (7-17); Carbon Dioxide 31 mmol/L (22.0-30.0); Cholesterol 134 mg/dl (140-200); Estimated Glomerular Filt Rate 63 ml/min (>60); GFR (African American) 77 ML/MIN (>60); Globulin 3.1 g/dL (1.3-3.2); Iron 51 ug/dL (37-170); Total Protein,Serum 7.6 g/dl (6.3-8.2); Triglycerides 202 mg/dl (30-150); VLDL Cholesterol 40 mg/dL (0-40)
[2024-09-13 20:39] LABS: Calcium 9.9 mg/dl (8.4-10.2); Chol/HDL Ratio 4.6 (1-3.5); Glucose 130 mg/dl (74-100); HDL Cholesterol 29 mg/dl (40-60); Magnesium 1.2 mg/dl (1.6-2.3)
[2024-09-13 20:50] LABS: Direct LDL Cholesterol 61.81 mg/dL (100-129); Total Iron Binding Capacity 430 ug/dL (265-497)
[2024-09-13 20:57] LABS: Ferritin 14.5 ng/ml (11.1-264)
[2024-09-13 21:12] LABS: Vitamin B12 661 pg/mL (239-931)
[2024-09-13 21:31] LABS: Hemoglobin A1C 6.6 % (4.0-6.0)
[2024-09-13 22:24] LABS: Folate > 20.00 ng/mL
== END 2024-09-13 23:59 | disposition home or self-care (01) ==
LOC: LAB.DROPOF 09-14 15:17
PROVIDERS: PCP Family Medicine; Visit Provider Family Medicine
DX: E11.42 Type 2 diabetes mellitus with diabetic polyneuropathy (principal); Z79.4 Long term (current) use of insulin; E78.5 Hyperlipidemia, unspecified; I10 Essential (primary) hypertension; E83.42 Hypomagnesemia; M10.9 Gout, unspecified; D64.9 Anemia, unspecified
CPT/HCPCS: 80053; 80061; 82306; 82607; 82728; 82746; 83036; 83540; 83550; 83735; 84550; 85025

== ENCOUNTER 2024-09-17 11:47 | Outpatient (CLI) | payer OTHER, SELFPAY ==
[2024-09-17 12:08] LABS: Occult Blood,Stool Negative (Negative)
== END 2024-09-17 23:59 | disposition home or self-care (01) ==
LOC: LAB 11:48
PROVIDERS: PCP Family Medicine; Visit Provider Family Medicine
DX: D64.9 Anemia, unspecified (principal)
CPT/HCPCS: 82272; G0328

== ENCOUNTER 2024-09-20 07:36 | Outpatient (CLI) | payer OTHER, SELFPAY ==
[2024-09-20 09:36] LABS: Occult Blood,Stool Positive (Negative)
== END 2024-09-20 23:59 | disposition home or self-care (01) ==
LOC: LAB 07:37
PROVIDERS: PCP Family Medicine; Visit Provider Family Medicine
DX: D64.9 Anemia, unspecified (principal)
CPT/HCPCS: 82272; G0328

== ENCOUNTER 2024-12-22 09:44 | Outpatient (CLI) | payer OTHER, SELFPAY ==
--- OUTSIDE RECORDS SUMMARY | 2018-02-11 08:25 | XMS_ITS | Encounter Summary ---
Author Organization [place] [address] Care Team Providers Care Bread Distributor Name Role Phone Dahlia Gagnon APRN Primary Care Provider Encounter Details Date Type Department Care Team (Latest Contact Info) Description 02/11/2018 8:25 AM EDT Hospital Encounter [facility] [address] [facility]. [place], [place] [phone] Left without seen Social History Tobacco Use [...] Date Recorded PHQ-2 Total Score 0 10/10/2023 [facility] [place] of Occupat ional Health - Occupational Stress [...] Assessment Author 0 10/10/2023 1:39 PM EDT Emlei Victor, DELMIA * Question Answer Date of [...] Things 0 10/10/2023 1:39 PM EDT Harpreet Victro, DELMIA Trouble Relaxing 0 10/10/2023 1:39 PM [...] 5:43 PM EDT Faby Chang RN * [place] Suicide Severity Rating Scale (Q shift for [...] documented as of this encounter Care Teams Bread Distributor Relationship Specialty Start Date End Date Dahlia Gagnon APRN PCP - General Nurse Practitioner 01/06/18 04/27/18 documented as of this encounter
--- OUTSIDE RECORDS SUMMARY | 2024-12-24 09:47 | XMS_ITS | Encounter Summary ---
Author Organization [place] [address] Care Team Providers Care [employer] Name Role Phone Dahlia Gagnon APRN Primary Care Provider [phone] Shannon Stern LPN Unavailable Unavailable Christa Cortes APRN Primary Care Provider [phone] Cb Stone DO, Viral Primary Care Provider [phone] Eva Pride RN Unavailable Unavaila Christa Newman APRN Primary Care Provider Yoselin Khanna RD,LD Unavailable Unavailabl e Reason for Visit * Reason Onset Date Comments Medication Refill 08/20/2018 Encounter Details Date Type Department Care Team (Late st Contact Info) Description 08/20/[address] [address] Dahlia Gagnon APRN [address] [address] Medication Refill Social History Tobacco Use Types Packs/Day Years Used Date Smoking Tobacco: Never Smokeless Tobacco: Never Alcohol Use Standard Drinks/Week Comments No 0 (1 standard drink = 0.6 oz pur e alcohol) Comments No Sex and Gender Information Value Date Recorded Sex Assigned at Not on file Legal Sex Female 6:49 AM EDT Gender Identity Not on file Sexual Orientation Not on file documented as of this encounter Plan of Treatment Not on file documented as of this encounter Goals Goal Patient Goal Type Associated Problems Recent Progress Patient-Stated? Author Blood Pressure < 140/90 Blood Pressure 130/78(2023 1:40 PM EDT) Bridgette Rockwell RMA BMI (Calculated) < 30 General 45.8(01/08/20 1:40 PM EDT) No Bridgette Russo RMA Maintain a healthy diet, exercise regularly and maintain an ideal body weight General No Chuy Jose RMA HEMOGLOBIN A1C < 7.0 Result Component 7(10/08/2023 6:27 PM EDT) No Bridgette Russo RMA documented as of this encounter Visit Diagnoses Diagnosis Hyperlipidemia with target LDL less than 100 Other and unspecified hyperlipidemia Essential hypertension Unspecified essential hypertension Type 2 diabetes mellitus without complication, without long-term current use of insulin (HCC) Asthma, unspecified asthma severity, unspecified whether complicated, unspecified whether persistent documented in this encounter Additional Health Concerns Infection Onset Date Last Indicated Resolved Time R/O COVID-19 03/06/2023 03/06/2023 03/06/2023 2:42 PM EDT documented as of this encounter Care Teams [employer] Relationship Specialty Start Date End Date Dahlia Gagnon APRN PCP - General Nurse Practitioner 07/24/18 02/22/20 Christa Cortes APRN [facility] [place] [address] PCP - General Nurse Practitioner 02/23/20 01/24/21 Shaun Vivar DO [address] [place] [address] PCP - General Family Medicine 01/25/21 09/25/21 Christa Cortes APRN [address] [place] [address] PCP - General Nurse Practitioner 09/26/21 02/01/24 Shannon Stern LPN Combination Operator 12/24/18 08/17/19 Eva Pride RN Combination Operator Registered Nurse 09/03/[address],LD Dietitian 10/02/22 10/03/22 documented as of this encounter
--- OUTSIDE RECORDS SUMMARY | 2024-12-24 09:47 | XMS_ITS | Clinical Summary ---
Author Organization [facility] Address [address] [place] [address] Phone Care Team Providers Care Fruit Trimmer Name Role Phone Unavailable Primary Care Provider Unavailabl e Allergies Active Allergy Reactions Criticality Noted Date Comments Aspirin Itching Low 10/14/2009 Tolerates 81 mg ASA, reaction with 325 mg ASA Clonidine Other (See Comments) High 01/06/2018 Makes her heart race and have palpitations Gabapentin Other (See Comments) Low 08/11/2012 Blisters in mouth Penicillins Hives,Nausea And Vomiting Low 10/14/2009 Sulfa (Sulfonamide Antibiotics) Hives,Rash Low 10/14/2009 Medications aspirin 81 mg Oral Tablet, Chewable Take 81 mg by mouth daily. Active Cholecalciferol, Vitamin D3, 2,000 unit Oral Tablet Take 1 Tablet by mouth daily. 3 9 Active Lancets Misc MiscIndications: Type 2 diabetes mellitus without complication, without long-term current use of insulin (HCC) Test twice daily 100 Each 11 3 Active Blood-Glucose Meter Misc MiscIndications: Type 2 diabetes mellitus without complication, without long-term current use of insulin (HCC) Test twice daily. Coverage per insurance. Dx: E11.9 1 Each 3 Active Blood Sugar Diagnostic Misc StripIndications :Type 2 diabetes mellitus without complication, without long-term current use of insulin (HCC) Test twice daily. Coverage per insurance. Dx: E11.9 100 Strip 11 3 Active Melatonin 3 mg Oral Tablet Take 5 mg by mouth nightly. Active baclofen (LIORESAL) 10 mg Oral TabletIndication s:Chronic midline posterior neck pain Take 1 Tablet by mouth 2 times daily. 60 Tablet 1 3 Active hydrALAZINE (APRESOLINE) 50 mg Oral TabletIndication s:Essential hypertension Take 1 Tablet by mouth 4 times daily as needed (for SBP >160 or DBP >105). 60 Tablet 2 4 Active predniSONE (DELTASONE) 20 mg Oral Tablet Take 2 Tablets by mouth daily. 6 Tablet 4 Active Additional Information Patient not taking.Reason: Therapy Completed, Reported on 01/08/2024 Insulin [place], Disposable, (RUFINO PEN NEEDLE) 32 gauge x 5/32 Misc NeedleIndication s:Type 2 diabetes mellitus without complication, without long-term current use of insulin (HCC) USE DAILY WITH INSULIN Strength: 32 gauge x 5/32 100 Each 2 4 Active amLODIPine (NORVASC) 10 mg Oral TabletIndication s:Essential hypertension Take 1 Tablet by mouth daily. 90 Tablet 1 4 Active hydroCHLOROthiaz matt 25 mg Oral TabletIndication s:Essential hypertension Take 1 Tablet by mouth daily. 90 Tablet 3 4 Active DULoxetine (CYMBALTA) 30 mg Oral Capsule, Delayed Release(E.C.)Ind ications:General ized anxiety disorder Take 1 Capsule by mouth daily. 30 Capsule 1 4 Active dapagliflozin propanediol (FARXIGA) 10 mg Oral TabletIndication s:Type 2 diabetes mellitus without complication, without long-term current use of insulin (HCC) Take 1 Tablet by mouth daily. 90 Tablet 1 4 Active potassium chloride SA (KLOR-CON M) 10 mEq Oral Tab Sust.Rel. Particle/Crystal Indications:Esse ntial hypertension Take 1 Tablet by mouth as needed. 30 Tablet 5 4 Active cyclobenzaprine (FLEXERIL) 10 mg Oral TabletIndication s:Fibromyalgia,S train of neck muscle, initial encounter Take 1 Tablet by mouth every 8 hours as needed for Muscle spasms. 90 Tablet 5 4 Active esomeprazole (NEXIUM) 40 mg Oral Capsule, Delayed Release(E.C.)Ind ications:Gastroe sophageal reflux disease with esophagitis without hemorrhage Take 1 Capsule by mouth daily. 90 Capsule 1 4 Active lidocaine (LIDODERM) 5 % Top Adhesive Patch, Medicated Place 1 Patch onto the skin every 12 hours. 10 Patch 4 Active clobetasoL (TEMOVATE) 0.05 % Top Cream Apply topically 2 times daily. 60 g 4 Active insulin glargine (LANTUS) 100 unit/mL (3 mL) SubQ Insulin PenIndications:T ype 2 diabetes mellitus without complication, without long-term current use of insulin (HCC) Subcutaneous (Inject under the skin) 20 Units 2 times daily. 36 mL 1 4 Active metoprolol succinate ER (TOPROL-XL) 100 mg Oral Tablet Sustained Release 24 hrIndications:Es sential hypertension TAKE 1 TABLET BY MOUTH DAILY 90 Tablet 4 Active albuterol (VENTOLIN HFA) 90 mcg/actuation Inhl HFA Aerosol InhalerIndicatio ns:Asthma, unspecified asthma severity, unspecified whether complicated, unspecified whether persistent INHALE 2 PUFFS BY MOUTH EVERY 6 HOURS NEEDED FOR WHEEZING 18 g 4 Active lisinopriL (PRINIVIL;ZESTRI L) 40 mg Oral TabletIndication s:Essential hypertension TAKE 1 TABLET BY MOUTH DAILY FOR BLOOD PRESSURE 90 Tablet 1 5 Active metFORMIN (GLUCOPHAGE XR) 500 mg Oral ER 24 hr tabletIndication s:Type 2 diabetes mellitus without complication, without long-term current use of insulin (HCC) TAKE 2 TABLETS BY MOUTH TWICE DAILY WITH MEALS 120 Tablet 5 Active atorvastatin (LIPITOR) 40 mg Oral TabletIndication s:Hyperlipidemia with target LDL less than 100 TAKE 1 TABLET BY MOUTH EVERY NIGHT FOR CHOLESTEROL 30 Tablet 5 Active Active Problems Problem Noted Date Diagnosed Date Numbness and tingling of left side of face 09/30 Rectal bleeding 02/06/2022 Overview (02/06/2022): Added automatically from request for surgery [id number] Left facial numbness 08/31/2021 CKD (chronic kidney disease) stage 3, GFR 30-59 ml/min 08/15/2016 History of TIA (transient ischemic attack) 01/20 Essential hypertension 07/19/2015 TIA (transient ischemic attack) 03/03/2013 Type 2 diabetes mellitus wit hout complication, without long-term current use of insulin 03/03/2013 Lumbar radiculopathy 10/13/2012 Morbid obesity 07/07/2012 HLD (hyperlipidemia) 07/07/2012 Local infection of skin and subcutaneous tissue 05/20/2007 Overview (08/07/2022): ICD-10 Transition Encounter for routine gynecological examination 04/28/2007 Overview (08/07/2022): ICD-10 Transition Excessive or frequent menstruation 04/28/2007 Female genital symptoms 04/28/2007 Overview (08/07/2022): ICD-10 Transition Other and unspecified ovarian cyst 04/28/2007 Fibromyalgia Degenerative disc disease Depression Anxiety Resolved Problems Problem Noted Date Diagnosed Date Resolved Date Chest pain, unspecified type 09/22/2022 09/30/2022 Left leg pain 05/26/2017 05/29/2017 Acute chest pain 01/21/2016 05/29/2017 ARF (acute renal failure) 03/04/2013 Hypertensive urgency 03/03/2013 017 Chest pain 03/03/2013 05/29/2017 Hypercalcemia 03/03/2013 05/29/2017 HTN (hypertension) 7 Encounters Date Type Department Care Team Description 11/04/2024 Refill [facility] [address] [place] [address] Shani Cortesa, BEAM CARRIER HAULER PUSHER Medication Refill 10/26/2024 Refill [facility] [address] [place] [address] Shani Cortesa, BEAM CARRIER HAULER PUSHER Medication Refill 10/05/2024 Patient Outreach [facility] [address] [place] [address] Tasha Emery RN Central Patient Navigator Outreach from Last 3 Months Immunizations Immunization Administration Dates Next Due Influenza Seasonal Injectable 06/12/2016, 014 Influenza Vaccine Quadrivalent PF 05/27/2017, Influenza Vaccine, Unspecifi ed Formulation 07/07/2012 Influenza Virus Vaccine Quad rivalant, Flublok 05/08/2023,06/20/2022,09/01/2021(Deferr ed: Vaccine Shortage - per pharmacy we are out of stock),04/14/2020 Moderna SARS-CoV-2 Vaccine 1 2+ Yrs (Light blue border) 01/25/2021,12/28/2020 Surgical History Surgery Date Site/Laterality Comments HYSTERECTOMY, TOTAL complete CHOLECYSTECTOMY COLONOSCOPY 02/13/2022 N/A Colonoscopy; Surgeon: Tay Monroe MD; Location: [facility] END[facility]; Service: Endoscopy Medical History Medical History Date Comments Hypertension Degenerative disc disease Depression Anxiety Panic attacks Muscle spasm Chronic kidney disease Managed b y Dr Jcarlos Barnett Kidney calculi Chest pain 2004 NORMAL CORONARY ARTERIES IN 2004! Chronic pain Managed by Dr Trevon barnett with Percocet 10/325mg every 6 hours. Narcotic dependence due to chron ic back pain from mild degenerative disc disease per x ray. DM (diabetes mellitus) (HCC) Asthma Hyperlipidemia Morbid obesity (HCC) Anemia UTI (urinary tract infection) Pancreatitis Stress incontinence, female GERD (gastroesophageal reflux disease) Family History Medical History Relation Name Comments Kidney Disease Brother Cancer Father Adam moore colon cancer Colon Cancer Father Adam moore Colon Polyps Father Adam moore Anemia Mother Cancer Mother kidney cancer Diabetes Mother Hypertension Mother Kidney Disease Mother Stroke Mother Relation Name Status Comments Brother Father Adam moore Mother Social History Tobacco Use Types Packs/Day Years Used Date Smoking Tobacco: Never Smokeless Tobacco: Never Tobacco Cessation:Counseling Given: No Alcohol Use Standard Drinks/Week Comments No 0 [...] Date Recorded PHQ-2 Total Score 0 10/10/2023 [facility] - Occupational Stress Questionnaire Answer Date Recorded [...] place to sleep or slept in a halfway (including now)? No 03/07/2023 Sexually Active Control Partners Comments Not Currently Post-menopausal Male Hysterectom y Comments No Sex and Gender Information Value Date Recorded Sex Assigned at Not on file Legal Sex Female 6:49 AM EDT Gender Identity Not on file Sexual Orientation Not on file Obstetrics History Last Filed Vital Signs Vital Sign Reading Time Taken Comments Blood Pressure 130/78 01/08/2024 1:40 PM EDT Pulse 86 01/08/2024 1:40 PM EDT Temperature 36.7 C (98.1 F) 01/08/2024 1:40 PM EDT Respiratory Rate 16 01/08/2024 1:40 PM EDT Oxygen Saturation 98% 01/08/2024 1:40 PM EDT Inhaled Oxygen Concentration - - Weight 132.4 kg (291 lb 12.8 oz) 01/08/2024 1:40 PM EDT Height 170.2 cm (5' 7 ) 01/08/2024 1:40 PM EDT Body Mass Index 45.7 01/08/2024 1:40 PM EDT Plan of Treatment Health Maintenance Due Date Last Done Comments DTaP/TDaP/Td (1 - Tdap) 1981 Pneumococcal Vaccine 50+ (1 of 2 - PCV) 1981 Cologuard 09/10/2007 FIT 09/10/2007 Sigmoidoscopy 09/10/2007 Virtual Colonography 09/10/2007 Zoster (1 of 2) 2012 RSV or 60+ (1 - Risk 60-74 years 1-dose series) 2022 Diabetic Eye Exam 09/21/2023 09/20/2021 Breast Cancer Screening 11/08/2023 11/08/19, 07/23/2016, 10/12/2014, Additional history exists COVID-19 Vaccine ( season) 2024 04/27/2022, 12/15/2021, 07/11/2021, Additional history exists Lipids 04/07/2024 04/07/2023, 09/2022, 09/01/2021, Additional history exists Hemoglobin A1c 04/08/2024 10/08/2023, 02/2023, 12/10/2022, Additional history exists Kidney Health: eGFR 10/07/2024 10/08/2023, 05/18/2023, 05/13/2023, Additional history exists Annual Wellness Exam 10/09/2024 10/10/2023, 06/20/20 Kidney Health: uACR 10/09/2024 10/10/2023 Influenza Vaccine (Season Ended) 2025 05/08/2023, 06/20/2022, 04/14/2020, Additional history exists Colon Cancer Screening 02/14/2032 Colonoscopy 02/14/2032 02/13/2022 Hepatitis C Screening Completed 01/07/2018 Hepatitis B Vaccine Discontinued Meningococcal B Vaccine Aged Out No l onger eligible based on patient's age to complete this topic Goals Goal Patient Goal Type Associated Problems [...] 6:27 PM EDT) No Bridgette Russo RMA Procedures Procedure Name Priority Date/Time Associated Diagnosis Comments HEMOGLOBIN A1C Routine 10/08/2023 6:27 PM EDT Type 2 diabetes mellitus without complication, without long-term current use of insulin (HCC) BASIC METABOLIC PANEL STAT 10/08/2023 6:26 PM EDT LIPID SCREEN Routine 04/07/2023 11:09 AM EDT Type 2 diabetes mellitus without complication, without long-term current use of insulin (HCC) GMED COLONOSCOPY Routine 02/13/2022 9:40 AM EDT MM MAMMO DIGITAL PIERRE SCREEN BILAT Routine 11/07/2021 1:09 PM EDT Encounter for screening mammogram for breast cancer HM DIABETES EYE EXAM Routine 09/20/2021 HCV ANTIBODY SCREEN W/ REFLEX Routine 01/07/2018 7:51 AM EDT Need for hepatitis C screening test from Last 3 Months or Most Recently Relevant to Health Maintenance Results * (ABNORMAL) HEMOGLOBIN A1C (10/08/2023 6:27 PM EDT) Pathologist [facility] Hgb A1C 7.0(H) 4.2 - 5.6 % 10/10/2023 5:46 PM EDT [employer] Est. Avg Glucose 154 mg/dL 10/10/2023 5:46 PM EDT [facility] [employer] [facility] Blood VENOUS BLOOD / Unknown Venipuncture / Unknown 10/08/2023 6:27 PM EDT 10/08/2023 6:27 PM EDT Narrative [facility] [employer] [facility] - 10/10/2023 5:46 PM EDT REFERENCE RANGE: Normal: 4.0-5.6% Pre-diabetes: 5.7-6.4% Provisional diagnosis of diabetes: >6.4% Hgb F>10% and anything which shortens red cell survival, such as hemolytic anemia, or unstable hemoglobin variants such as HbSS, HbSC, or HbCC, will lower the HbA1c value associated with a given level of glycemic control. us Christa Cortes APRN CHEMISTRY ORDERABLES Final Res ult [employer] [address] [place] [address] , [place] [address] * (ABNORMAL) BASIC METABOLIC PANEL (10/08/2023 6:26 PM EDT) Pathologist [facility] Sodium 136 136 - 145 mmol/L 10/08/2023 6:47 PM EDT [facility] Potassium 4.1 3.5 - 5.0 mmol/L 10/08/2023 6:47 PM EDT [facility] Chloride 98 98 - 107 mmol/L 10/08/2023 6:47 PM EDT [facility] Total CO2 28 22 - 29 mmol/L 10/08/2023 6:47 PM EDT [facility] Anion Gap 10 7 - 16 mmol/L 10/08/2023 6:47 PM EDT [facility] Calcium 10.1 8.8 - 10.4 mg/dL 10/08/2023 6:47 PM EDT [facility] Glucose Lvl 170(H) 70 - 99 mg/dL 10/08/2023 6:47 PM EDT [facility] BUN 17 8 - 23 mg/dL 10/08/2023 6:47 PM EDT [facility] Creatinine 1.00 0.51 - 1.30 mg/dL 10/08/2023 6:47 PM EDT [facility] eGFR (CKD-EPIcr 2020) 64 >=60 mL/min/1.7 3 m2 10/08/2023 6:47 PM EDT [facility] Comment:Estimated GFR was ca lculated using the CKD-EPIcr (2020) equation refit without race. The equation is recommended by the National Kidney Foundation - [place] [employer]ph[employer] Task Force. Blood VENOUS BLOOD / Unknown Venipuncture / Unknown 10/08/2023 6:26 PM EDT 10/08/2023 6:26 PM EDT us Kishore Garcia MD CHEMISTRY ORDERABLES Final Resul t [facility] [address] [place] [address] * (ABNORMAL) LIPID SCREEN (04/07/2023 11:09 AM EDT) Cholesterol 140 <200 mg/dL 04/07/2023 3:59 PM EDT [facility] [employer] Comment: < 200 Desirable 200 - 239 Borderline High >= 240 High Triglyceride 202(H) <150 mg/dL 04/07/2023 3:59 PM EDT [employer] Comment: < 150 Normal 150 - 199 Borderline High 200 - 499 High >= 500 Very High HDL 33(L) >=40 mg/dL 04/07/2023 3:59 PM EDT [employer] Comment: > 60 Optimal 40 - 60 Acceptable < 40 Low LDL Calculated 73 <100 mg/dL 04/07/2023 3:59 PM EDT [employer] Comment: < 100 Optimal 100 - 129 Near or above optimal 130 - 159 Borderline High 160 - 189 High >= 190 Very High Non-HDL-C Calculated 107 <=129 mg/dL 04/07/2023 3:59 PM EDT [employer] Comment: <130 Desirable 130-159 Above Desirable 160-189 Borderline High 190-219 High >= 220 Very High Fasting Specimen? Yes None 023 3:59 PM EDT [facility] Blood VENOUS BLOOD / Unknown Venipuncture / Unknown 04/07/2023 11:09 AM EDT 04/07/2023 11:09 AM EDT us Christa Cortes BEAM CARRIER HAULER PUSHER CHEMISTRY ORDERABLES Final Res ult [employer] [address] [facility], [place] [address] [facility] [address] [place] [address] * GMED COLONOSCOPY (02/13/2022 9:40 AM EDT) 02/13/2022 9:40 AM EDT Impressions [facility] - 02/13/2022 10:23 AM EDT Plan: This section is an excerpt of the full report. Tay Monroe MD GI PROCEDURE ORDERABLES Patsy l Result Performing Organization Address [facility]/ZIP Co de Phone Number [facility] [address] [place] [address] * MM MAMMO DIGITAL PIERRE SCREEN BILAT (11/07/2021 1:09 PM EDT) Anatomical Region Laterality Modality Breast Bilateral Mammography 11/07/2021 3:07 PM EDT Impressions 11/07/2021 3:07 PM EDT Benign finding ([id number]) ~ RECOMMENDATION: Routine screening mammogram in 1 year. ~ DISCLAIMER * Any patient with a palpable abnormality, unexplained by breast imaging, should be managed on clinical basis by the attending physician. * Breast imaging has a false negative rate of 15%. * The patient was notified by mail of the results of this examination. *The patient's information was entered into a reminder system with a target due date for the next mammogram, in accordance with the [place] [employer] and the Society of Breast Imaging recommendations. Narrative 11/07/2021 3:07 PM EDT Procedure:MM MAMMO DIGITAL PIERRE SCREEN BILAT ~ Reason for exam: screening, asymptomatic. Z12.31-Encounter for screening mammogram for malignant neoplasm of [id number] ~ MM MAMMO DIGITAL PIERRE SCREEN BILAT Bilateral CC and MLO view(s) were taken. There are scattered fibroglandular densities. Prior study comparison: Compared with prior studies the most recent being 07/23/16, 10/12/14 No mammographic evidence of malignancy. Stable less than 1 cm nodular density in the RIGHT 9:00 position best seen on the CC view ~ Procedure Note Paramjit Acevedo MD - 11/07/2021 Procedure:MM MAMMO DIGITAL PIERRE SCREEN BILAT ~ Reason for exam: screening, asymptomatic. Z12.31-Encounter for screening mammogram for malignant neoplasm of [id number] ~ MM MAMMO DIGITAL PIERRE SCREEN BILAT Bilateral CC and MLO view(s) were taken. There are scattered fibroglandular densities. Prior study comparison: Compared with prior studies the most recentbeing 07/23/16, 10/12/14 No mammographic evidence of malignancy. Stable less than 1 cm nodular density in the RIGHT 9:00 position best seen on the CC view ~ IMPRESSION: Benign finding ([id number]) ~ RECOMMENDATION: Routine screening mammogram in 1 year. ~ DISCLAIMER * Any patient with a palpable abnormality, unexplained by breast imaging, should be managed on clinical basis by the attending physician. * Breast imaging has a false negative rate of 15%. * The patient was notified by mail of the results of this examination. *The patient's information was entered into a reminder system with atarget due date for the next mammogram, in accordance with the [place] [employer] and the Society of Breast Imaging recommendations. Christa Cortes APRN IMG MAMMOGRAPHY ORDERABLES Fin al Result * DIABETES EYE EXAM (09/20/2021) Left Diabetic Retinopathy Not Present Present/Not Present [facility] Right Diabetic Retinopathy Not Present Present/Not Present SEP OFFICE 09/20/2021 us Historical Provider HEALTH MAINTENANCE Final Res ult SEP OFFICE * HEPATITIS C ANTIBODY - SCREENING (01/07/2018 7:51 AM EDT) Hep C Ab Non-Reactiv e Non-Reacti ve 01/07/2018 5:31 PM EDT [facility] [employer] Blood VENOUS BLOOD / Unknown Venipuncture / Unknown 01/07/2018 7:51 AM EDT 01/07/2018 7:51 AM EDT us Dahlia Gagnon BEAM CARRIER HAULER PUSHER HEMATOLOGY ORDERABLES Final Result [facility] [employer] [address] [facility] , [address] [place] [id number] from Last 3 Months or Most Recently Relevant to Health Maintenance Insurance [facility] Advance Directives For more information, please contact: [phone] * Full Code (Latest Code Status on File) Date Activated Date Inactivated Comments 09/22/2022 8:52 AM 09/23/2022 7:54 PM * Full Code Date Activated Date Inactivated Comments 09/22/2022 8:25 AM 09/22/2022 8:52 AM * Full Code Date Activated Date Inactivated Comments 05/26/2017 4:17 PM 05/27/2017 9:22 PM * Full Code Date Activated Date Inactivated Comments 05/26/2017 3:49 PM 05/26/2017 4:17 PM * Full Code Date Activated Date Inactivated Comments 01/21/2016 1:44 AM 01/21/2016 10:37 PM
--- OUTSIDE RECORDS SUMMARY | 2024-12-24 09:47 | XMS_ITS | Encounter Summary ---
Author Organization [facility] Address [address] [place] [address] Care Team Providers Care Fisherman Helper Name Role Phone Carlo Mejia MD Primary Care Provider Un available Nonstaff, Referring Primary Care Provider Unavai Dahlia Mcfarland APRN Primary Care Provider [phone] Shannon Stern LPN Unavailable Unavailable Arias Oliveira MD Primary Care Provider Unav ailDahlia Nolan APRN Primary Care Provider [phone] Shannon Stern LPN Unavailable Unavailable Christa Cortes APRN Primary Care Provider [phone] Cb Stone DO, Viral Primary Care Provider [phone] Eva Pride RN Unavailable Unavaila ble Christa Cortes APRN Primary Care Provider [phone],LD Unavailable Unavailabl e Reason for Visit * Reason Onset Date Comments Medication Refill 03/13/2017 Encounter Details Date Type Department Care Team (Late st Contact Info) Description 03/13/2017 Refill [facility] Nephrology [address] [place] [address] Tamera Rodrigues MD [address] [place] [address] Medication Refill Social History Tobacco Use Types [...] documented as of this encounter Care Teams Fisherman Helper Relationship Specialty Start Date End Date Carlo Mejia MD PCP - General Family Medicine 01/23/16 11/19/17 Nonstaff, Referring PCP - General 11/20/17 01/05/18 Dahlia Gagnon APRN PCP - General Nurse Practitioner 01/06/18 04/27/18 Arias Oliveira MD PCP - General Family Medicine 04/28/18 07/23/18 Dahlia Gagnon APRN PCP - General Nurse Practitioner 07/24/18 02/22/20 Christa Cortes APRN [address] [place] [phone] PCP - General Nurse Practitioner 02/23/20 01/24/21 Shaun Vivar DO [address] [place] [phone] PCP - General Family Medicine 01/25/21 09/25/21 Christa Cortes APRN [address] [place] [phone] PCP - General Nurse Practitioner 09/26/21 02/01/24 Shannon Stern LPN Health Advocate 04/01/18 06/18/18 Shannon Stern LPN Healthcare Economics Consultant 12/24/18 08/17/19 Eva Pride RN Healthcare Economics Consultant Registered Nurse 09/03/[address],[place] Dietitian 10/02/22 10/03/22 documented as of this encounter
--- OUTSIDE RECORDS SUMMARY | 2024-12-24 09:47 | XMS_ITS | Encounter Summary ---
Author Organization [facility] [place] [address] Care Team Providers Care Micro Computer Specialist Name Role Phone Unavailable Primary Care Provider Unavailabl e Reason for Visit * Reason Comments Medication Refill Encounter Details Date Type Department Care Team (Late st Contact Info) Description 11/04/2024 Refill [facility] [address] [place] [address] Christa Cortes, PAPERHANGER CONTRACTOR [address] [place] [address] Medication Refill Social History Tobacco Use Types [...] Date Recorded PHQ-2 Total Score 0 10/10/2023 [facility] [place] of Occupat ional Health - Occupational Stress [...] place to sleep or slept in a correction (including now)? No 03/07/2023 Sexually Active Control Partners Comments Not Currently Post-menopausal Male Hysterectom y Comments No Sex and Gender Information Value Date Recorded Sex Assigned at Not on file Legal Sex Female 6:49 AM EDT Gender Identity Not on file Sexual Orientation Not on file documented as of this encounter Functional Status * Is the person deaf or does he/she have serious difficulty hearing? Answer Date of Assessment Author No 10/10/2023 1:39 PM EDT Emeli Victor CCMA * Is the person blind or does he/she have serious difficulty seeing even when wearing glasses? Answer Date of Assessment Author No 10/10/2023 1:39 PM EDT Emeli Victor CCMA * Does this person have serious difficulty walking or climbing stairs? Answer Date of Assessment Author No 10/10/2023 1:39 PM EDT Emeli Victor CCMA * Does this person have difficulty dressing or bathing? Answer Date of Assessment Author No 10/10/2023 1:39 PM EDT Emeli Victor CCMA * Because of a physical, mental or emotional condition, does this person have difficulty doing errands alone such as visiting a doctor's office or shopping? Answer Date of Assessment Author No 10/10/2023 1:39 PM EDT Emeli Victor CCMA documented as of this encounter Mental Status * Because of a physical, mental or emotional condition, does this person have serious difficulty concentrating, remembering or making decisions? Answer Entry Date Author No 10/10/2023 1:39 PM EDT Emeli Victor CCMA documented in this encounter Ordered Prescriptions Prescription Sig Dispense Quantity Refills Last Filled Start Date End Date atorvastatin (LIPITOR) 40 mg Oral TabletIndications: Hyperlipidemia with target LDL less than 100 TAKE 1 TABLET BY MOUTH EVERY NIGHT FOR CHOLESTEROL 30 Tablet 11/04/2024 documented in this encounter Miscellaneous Notes * Telephone Encounter - Karina Appiah CPhT - 11/04/2024 4:09 PM EDT Medication refill request deferred to office staff. [place] Reason: Patient is not attributed to a PCP in this office documented in this encounter Plan of Treatment [...] a day and log General Yes Brianna Napier, SUKHJINDER HEMOGLOBIN A1C < 7.0 Result Component 7(10/08/2023 6:27 PM EDT) No Bridgette Russo RMA documented as of this encounter Visit Diagnoses Diagnosis Hyperlipidemia with target LDL less than 100 Other and unspecified hyperlipidemia documented in this encounter Discontinued Medications Medication Sig Discontinue Reason Start Date End Da te atorvastatin (LIPITOR) 40 mg Oral TabletIndications:Hype rlipidemia with target LDL less than 100 TAKE 1 TABLET BY MOUTH EVERY NIGHT FOR CHOLESTEROL 02/09/2024 11/04/2024 documented as of this encounter
--- OUTSIDE RECORDS SUMMARY | 2024-12-24 09:47 | XMS_ITS | Encounter Summary ---
Author Organization [place] [address] Care Team Providers Care Technical Applications Scientist Name Role Phone Unavailable Primary Care Provider Unavailabl e Reason for Visit * Reason Comments Medication Refill Encounter Details Date Type Department Care Team (Late st Contact Info) Description 10/26/2024 Refill [facility] [address] [place] [address] Christa Cortes, FINISHING WIRE SAWYER [address] [place] [address] Medication Refill Social History Tobacco [...] Date Recorded PHQ-2 Total Score 0 10/10/2023 [facility] [place] of Occupat ional Health - Occupational Stress [...] place to sleep or slept in a [facility] (including now)? No 03/07/2023 Sexually Active Control [...] Refills Last Filled Start Date End Date metFORMIN (GLUCOPHAGE XR) 500 mg Oral ER 24 hr tabletIndications: Type 2 diabetes mellitus without complication, without long-term current use of insulin (HCC) TAKE 2 TABLETS BY MOUTH TWICE DAILY WITH MEALS 120 Tablet 10/27/2024 documented in this encounter Miscellaneous Notes * Telephone Encounter - Ame Wynne CPhT - 10/27/2024 8:57 AM EDT Metformin Refill request deferred to the office: Patient is not attributed to a PCP [...] as of this encounter Visit Diagnoses Diagnosis Type 2 diabetes mellitus without complication, without long-term current use of insulin (HCC) documented in this encounter Discontinued Medications Medication Sig Discontinue Reason Start Date End Da te metFORMIN (GLUCOPHAGE XR) 500 mg Oral ER 24 hr tabletIndications:Type 2 diabetes mellitus without complication, without long-term current use of insulin (HCC) Take 2 Tablets by mouth 2 times daily (with meals). 10/10/2023 10/27/2024 documented as of this encounter
== END 2024-12-22 23:59 | disposition home or self-care (01) ==
LOC: LAB.DROPOF 12-24 09:45
PROVIDERS: PCP Nurse Practitioner; Visit Provider Nurse Practitioner
DX: R39.15 Urgency of urination (principal)
CPT/HCPCS: 87086; 87088; 87186

== ENCOUNTER 2024-12-25 00:09 | Emergency (ER) | payer MEDICAID, SELFPAY ==
--- OUTSIDE RECORDS SUMMARY | 2018-02-11 08:25 | XMS_ITS | Encounter Summary ---
Author Organization [place] [address] Care Team Providers Care Drip Box Tender Name Role Phone Dahlia Gagnon APRN Primary Care Provider Encounter Details Date Type Department Care Team (Latest Contact Info) Description 02/11/2018 8:25 AM EDT Hospital Encounter [facility] [address] [facility]. [place], [place] [id number] Left without seen Social History Tobacco Use [...] Date Recorded PHQ-2 Total Score 0 10/10/2023 [facility] [place] of Occupat ional Health - Occupational Stress [...] place to sleep or slept in a residential (including now)? No 03/07/2023 Sexually Active Control [...] alcohol? Never 10/02/2022 9:42 AM REGGIET Brianna Napeir RN Q2: How many drinks containing alcohol [...] 5:43 PM EDT Faby Chang RN * [place] Suicide Severity Rating Scale (Q shift for [...] documented as of this encounter Care Teams Drip Box Tender Relationship Specialty Start Date End Date Dahlia Gagnon APRN PCP - General Nurse Practitioner 01/06/18 04/27/18 documented as of this encounter
--- NOTE | 2024-12-25 00:17 | HMH.EDGENADL ---
Discharge Plan Disposition Patient Disposition: Home, Self-Care Prescriptions Prescriptions: New methocarbamol 500 mg tablet 1,000 mg PO Q6H PRN (Reason: pain) Qty: 30 0RF cefdinir 300 mg capsule 300 mg PO BID 5 Days Qty: 10 0RF No Action triamcinolone acetonide 0.5 % cream 1 applic topical BID Qty: 15 2RF Rx Instructions: apply to rash left thigh prn itching aspirin [Adult Aspirin Regimen] 81 mg tablet,delayed release (DR/EC) 81 mg PO DAILY (DME) blood sugar diagnostic Strip See Rx Instructions .Route Rx Instructions: As directed hydralazine 50 mg tablet 50 mg PO QID (DME) lancets 28 gauge misc See Rx Instructions .Route Rx Instructions: As directed lisinopril 40 mg tablet 40 mg PO DAILY potassium chloride 10 mEq capsule, extended release 10 meq PO DAILY ammonium lactate 12 % cream 1 applic topical BID Qty: 385 1RF phenazopyridine [Pyridium] 200 mg tablet 200 mg PO Q8H 2 Days Qty: 6 0RF nitrofurantoin monohyd/m-cryst [Macrobid] 100 mg capsule 100 mg PO Q12H 5 Days Qty: 10 0RF Rx Instructions: must administer with a meal/food (DME) blood-glucose meter Kit See Rx Instructions .ROUTE .MEDSUPPLY Qty: 1 0RF Rx Instructions: As directed or bid ,also the lancets and test strips to go with whatever Insurance will pay for albuterol sulfate [Ventolin HFA] 90 mcg/actuation HFA aerosol inhaler 2 puff inhalation Q6H PRN (Reason: wheezing) Qty: 8.5 5RF (DME) Blood Glucose Test Strip See Rx Instructions .Route Qty: 50 6RF Rx Instructions: used to check blood sugar qid. allopurinol 200 mg tablet 200 mg PO DAILY Qty: 30 0RF magnesium 200 mg tablet 200 mg PO BID Qty: 60 0RF metformin 500 mg tablet extended release 24 hr 1,000 mg PO BID 90 Days Qty: 360 0RF Rx Instructions: with meals atorvastatin 40 mg tablet 40 mg PO HS Qty: 90 0RF metoprolol succinate 100 mg tablet extended release 24 hr 100 mg PO DAILY Qty: 90 0RF cyclobenzaprine 10 mg tablet 10 mg PO TID PRN (Reason: muscle spasm) Qty: 60 1RF pregabalin [Lyrica] 50 mg capsule 50 mg PO TID Qty: 90 2RF esomeprazole magnesium 40 mg capsule,delayed release(DR/EC) 40 mg PO DAILY Qty: 90 0RF amlodipine 5 mg tablet 5 mg PO DAILY Qty: 90 0RF Referrals Follow up/Referrals: Jamin Felix MD [Primary Care Provider, Family Practice] - See instructions Activity Restrictions/Add. Instructions Additional Instructions/Restrictions: Please begin taking the new antibiotic as prescribed. Recommend discontinuing the old antibiotic. I sent a prescription for muscle relaxers to take as needed for pain in addition to Tylenol and ibuprofen at home. Clinical Impressions Clinical Impression: Pyelonephritis Instructions Patient Instructions: DI for Urinary Tract Infection (UTI), DI for Urinary Tract Infection in Children Print Language Print Language: Gabonese Discharge ED Provider: Jv Leyva General Adult HPI General Chief complaint: Urogenital-Female Stated complaint: R lower back pain Time Seen by Provider: 12/25/24 00:16 History of Present Illness HPI narrative: 64-year-old female of diabetes, hyper tension presents for right flank pain. She reports it has been ongoing for the last week. Chronic aching. Worse with movement. She saw her PCP and was started on Macrobid earlier but symptoms have been worsening. Reports history of kidney stone many years ago. Denies fever at home. Denies dysuria. Related Data Home Medications ?Medication ?Instructions ?Recorded ?Confirmed aspirin 81 mg tablet,delayed 81 mg PO DAILY 02/02/24 12/22/24 release (Adult Aspirin Regimen) blood sugar diagnostic 02/02/24 12/22/24 hydralazine 50 mg tablet 50 mg PO QID 02/02/24 12/22/24 lancets 28 gauge 02/02/24 12/22/24 lisinopril 40 mg tablet 40 mg PO DAILY 02/02/24 12/22/24 potassium chloride 10 mEq 10 meq PO DAILY 02/02/24 12/22/24 capsule,extended release Previous Rx's ?Medication ?Instructions ?Recorded triamcinolone acetonide 0.5 % 1 applic topical BID #15 grams 03/16/24 topical cream blood-glucose meter #1 ea 06/02/24 ammonium lactate 12 % topical cream 1 applic topical BID dry skin, 06/28/24 callus care #385 grams albuterol sulfate 90 mcg/actuation 2 puff inhalation Q6H PRN wheezing 07/07/24 aerosol inhaler (Ventolin HFA) #8.5 grams blood sugar diagnostic (Blood #50 ea 07/07/24 Glucose Test strips) allopurinol 200 mg tablet 200 mg PO DAILY #30 tabs 09/15/24 magnesium 200 mg tablet 200 mg PO BID #60 tabs 09/15/24 metformin 500 mg tablet,extended 1,000 mg (2 x 500 mg) PO BID 90 10/26/24 release 24 hr days #360 tabs atorvastatin 40 mg tablet 40 mg PO HS #90 tabs 11/05/24 metoprolol succinate 100 mg 100 mg PO DAILY #90 tabs 11/05/24 tablet,extended release 24 hr cyclobenzaprine 10 mg tablet 10 mg PO TID PRN muscle spasm #60 12/10/24 tabs pregabalin 50 mg capsule (Lyrica) 50 mg PO TID #90 caps 12/10/24 amlodipine 5 mg tablet 5 mg PO DAILY #90 tabs 12/15/24 esomeprazole magnesium 40 mg 40 mg PO DAILY #90 caps 12/15/24 capsule,delayed release nitrofurantoin 100 mg PO Q12H 5 days #10 caps 12/22/24 monohydrate/macrocrystals 100 mg capsule (Macrobid) phenazopyridine 200 mg tablet 200 mg PO Q8H 2 days #6 tabs 12/22/24 (Pyridium) cefdinir 300 mg capsule 300 mg PO BID 5 days #10 caps 12/25/24 methocarbamol 500 mg tablet 1,000 mg (2 x 500 mg) PO Q6H PRN 12/25/24 pain #30 tabs Allergies Allergy/AdvReac Type Severity Reaction Status Date / Time Penicillins Allergy Verified 12/22/24 14:42 sulfamethoxazole (From Allergy Verified 12/22/24 14:42 Bactrim) trimethoprim (From Bactrim) Allergy Verified 12/22/24 14:42 clonidine AdvReac Mild Hypotension Verified 12/22/24 14:42 gabapentin AdvReac Mild Anxiety Verified 12/22/24 14:42 PFSH PFSH Disclaimer: The information contained in this section may have been updated after the patient was seen, as this information can be updated by other users. Medical History Positive occult stool blood test Anemia Vitamin D deficiency Urinary incontinence, mixed Cuboid fracture Chronic kidney disease G3a Hypomagnesemia Arthritis Screening mammogram for breast cancer Gout Neuropathy due to herpes zoster Diabetic neuropathy Right ankle pain Right foot pain GERD (gastroesophageal reflux disease) Diabetes Hyperlipidemia Hypertension Acute lower gastrointestinal bleeding Hemorrhoids Left foot pain Surgical History H/O hysterectomy with oophorectomy Hx laparoscopic cholecystectomy around 2009 No pertinent past surgical history Family History Family/Other Diabetes Hyperlipidemia Hypertension Social History Smoking Status: Never smoker alcohol intake: never substance use type: denies use current occupational status: disabled Travel in the last 8 weeks?: None household members: family lives independently: Yes marital status: legally service: No detention: No Recent Travel: No Have you lived/traveled outside [place] in past 30 days?: No Contact w/someone who lives/traveled outside US past 30 days?: No Exposure to someone with infectious disease in past 14 days?: No Do you have a fever (greater than 100.4 F or 38 C)?: No Have you tested positive for COVID-19?: No Exposed to someone with COVID-19 in past 14 days?: No Do you have a sore throat?: No Do you have a cough?: No Do you have any weakness?: No Do you have any diarrhea?: No Are you experiencing any unusual bleeding?: No Do you have any muscle aches/pain?: No Do you have any abdominal pain?: No Are you experiencing loss of taste or smell?: No Other Medical History Have you received the Pneumonia Vaccine: Yes ROS Obtained: Yes All systems reviewed & no additional complaints except as documented Physical Exam General General appearance: alert and in no apparent distress Head Head exam: atraumatic and normocephalic Eye Eye exam: Present normal appearance, PERRL and EOMI ENT ENT exam: Present normal oropharynx and normal external ear exam Neck Neck exam: Present normal inspection and full ROM Chest Chest inspection: Present normal inspection and symmetric chest wall rise; Absent tenderness Respiratory Respiratory exam: Present normal lung sounds bilaterally; Absent respiratory distress Cardiovascular Cardiovascular exam: Present regular rate and normal rhythm Abdominal Exam Abdominal exam: Present soft; Absent distention, tenderness or guarding Extremities Exam Extremities exam: Present normal inspection; Absent edema or joint swelling Back Exam Back exam: Present normal inspection, tenderness and CVA tenderness (R) Neurological Exam Neurological exam: Present alert and oriented X3; Absent motor sensory deficit Psychiatric Psychiatric exam: Present normal affect and normal mood Skin Skin exam: Present warm, dry and normal color Lymphatic Lymphatic Findings: no adenopathy Medical Decision Making Medical Records Medical records reviewed: Yes I reviewed the patient's medical records. Screening: Per USPSTF and CDC recommendations, given the prevalence of disease in our region, it is our hospital?s policy to screen for HIV and viral Hepatitis for all patients aged 18 and over and those with ongoing risk factors. Jean Inquiry Pt receiving controlled substance: No Jean was queried for this patient: No Vital Signs: 12/25/24 00:24 12/25/24 01:38 Temperature 98.4 F Temperature Source Oral Pulse Rate 74 Pulse Rate [Left] 96 H Respiratory Rate 20 Blood Pressure 148/89 H Blood Pressure [Right Arm] 190/109 H Blood Pressure Mean [Right Arm] 136 Blood Pressure Source [Right Arm] Automatic Cuff Blood Pressure Position [Right Arm] Sitting 02 Sat by Pulse Oximetry 98 96 Oxygen Delivery Method Room Air Lab Data Lab results reviewed: Yes I reviewed the patient's lab results. Lab Results 12/25/24 00:16: Urine Color Yellow, Urine Appearance Clear, Urine pH 6.5, Ur Specific [place] <= 1.005, Urine Protein Negative, Urine Glucose (UA) Negative, Urine Ketones Negative, Urine Blood Trace-i, Urine Nitrate Positive A, Urine Bilirubin Negative, Urine Urobilinogen 1.0, Ur Leukocyte Esterase Negative, Urine RBC 3-5, Urine WBC 3-5, Ur Squamous Epith Cells Occasional, Urine Bacteria 1+ 12/25/24 00:30: WBC 7.2, RBC 4.24, Hgb 11.6 L, Hct 36.2 L, MCV 85.4, MCH 27.4, MCHC 32.0, RDW 14.3, Plt Count 278, MPV 10.7 H, Neut % (Auto) 48.5, Lymph % (Auto) 32.4, [place] % (Auto) 6.1, Eos % (Auto) 10.8, Baso % (Auto) 1.9, Neut # (Auto) 3.5, Lymph # (Auto) 2.3, [place] # (Auto) 0.4, Eos # (Auto) 0.8 H, Baso # (Auto) 0.1, Sodium 137, Potassium 4.0, Chloride 98, Carbon Dioxide 30, Anion Gap 13.0, BUN 18 H, Creatinine 1.10 H, Estimated Creat Clear 52, Estimated GFR 50 L, Est GFR ( Amer) 61, Glucose 161 H, Calcium 10.3 H, Total Bilirubin 0.6, AST 30, ALT 19, Alkaline Phosphatase 89, Total Protein 8.6 H, Albumin 4.6, Globulin 4.0 H, Albumin/Globulin Ratio 1.2 12/25/24 00:30 12/25/24 00:30 Orders (Tests/Meds): ED MEDICATIONS Generic Name Dose Route Start Last Admin Trade Name Freq PRN Reason Stop Dose Admin Ceftriaxone Sodium 1 gm/ 50 mls @ 100 mls/hr 12/25/24 01:32 12/25/24 01:40 Sodium Chloride IV 12/25/24 02:01 100 mls/hr ONCE ONE Administration Discontinued Medications Generic Name Dose Route Start Last Admin Trade Name Freq PRN Reason Stop Dose Admin Acetaminophen 1,000 mg 12/25/24 00:23 12/25/24 00:38 Acetaminophen 500mg Tab PO 12/25/24 00:24 1,000 mg ONCE ONE Administration Ketorolac Tromethamine 15 mg 12/25/24 00:23 12/25/24 00:39 Ketorolac 30mg/Ml Vial IV 12/25/24 00:24 15 mg ONCE ONE Administration Methocarbamol 1,000 mg 12/25/24 01:34 12/25/24 01:40 Methocarbamol 500mg Tablet PO 12/25/24 01:35 1,000 mg ONCE ONE Administration ORDERS Category Date Time Status CT abdomen pelvis wo con Stat Cat Scan 12/25/24 00:22 Taken CBC w/Auto Diff [Complete Blood Count Auto Diff] Stat Lab 12/25/24 00:30 Completed CMP [Comprehensive Metabolic Panel] Stat Lab 12/25/24 00:30 Completed UA [Urinalysis and Microscopic] Stat Lab 12/25/24 00:16 Completed Blood Culture Stat Micro 12/25/24 00:55 Received Urine Culture Stat Micro 12/25/24 00:16 Received Medical Decision Narrative: 64-year-old female with history of diabetes and hypertension as well as kidney stone in the distant past presents for 1 week of right flank pain with some hematuria. History was obtained via interactive discussion with patient, chart review. On arrival, patient is [afebrile, hemodynamically stable, satting appropriately, alert, oriented x4, GCS 15], moving all extremities spontaneously. Full physical exam performed and significant for significant right flank tenderness, no right upper quadrant tenderness, clear lungs bilaterally Differential includes but is not limited to pyelonephritis, obstructing nephrolithiasis, musculoskeletal pain, cholecystitis. Patient was given Tylenol Toradol for symptomatic management and correction of underlying abnormalities. Workup initiated including CBC CMP UA blood cultures CT abdomen pelvis without contrast. On re-evaluation, patient [remains afebrile, HD stable.] Laboratory workup independently interpreted by me and significant for positive nitrates, 3-5 RBCs, 3-5 WBCs, 1+ bacteria. Nitrates could be a result of patient taking phenazopyridine.. Imaging independently interpreted by me and significant for no evidence of kidney stone, mass lesion, bowel pathology. See radiology read for full review of final results. Given patient history, exam and workup, patient's presentation most likely represents right-sided pyelonephritis. Patient was initiated on ceftriaxone and discharged prescription for cefdinir for coverage of acute complicated urinary tract infection. She was also given Robaxin. Discharged in stable condition with return precautions. Procedures Risk/Benefits of Procedure(s) Were Explained: Yes Critical Care Critical Care Time Critical Care Time: No
--- NOTE | 2024-12-25 00:22 | CT_ITS ---
PROCEDURE INFORMATION: Exam: CT Abdomen And Pelvis Without Contrast Exam date and time: 12/25/2024 12:42 AM Age: 64 years old Clinical indication: Abdominal pain; Additional info: Right flank pain TECHNIQUE: Imaging protocol: Computed tomography of the abdomen and pelvis without contrast. Radiation optimization: All CT scans at this facility use at least one of these dose optimization techniques: automated exposure control; mA and/or kV adjustment per patient size (includes targeted exams where dose is matched to clinical indication); or iterative reconstruction. COMPARISON: CT ABDOMEN PELVIS W CON 06/13/2022 12:42 AM FINDINGS: Liver: Normal. No mass. Gallbladder and biliary ducts: Cholecystectomy Pancreas: Normal. No ductal dilation. Spleen: Normal. No splenomegaly. Adrenal glands: Normal. No mass. Kidneys and ureters: Punctate non-obstructing right renal stone. No obstructive uropathy. Stomach and bowel: Unremarkable. No obstruction. No mucosal thickening. Appendix: No evidence of appendicitis. Intraperitoneal space: Unremarkable. No free air. No significant fluid collection. Vasculature: Unremarkable. No abdominal aortic aneurysm. Lymph nodes: Unremarkable. No enlarged lymph nodes. Urinary bladder: Unremarkable as visualized. Reproductive: Unremarkable as visualized. Bones/joints: Unremarkable. No acute fracture. Soft tissues: Unremarkable. IMPRESSION: No acute findings.
[2024-12-25 00:24] VITALS: BP 190/109; PULSE 96; RESP 20; TEMP 36.9; O2SAT 98; BMI 42.3
--- OUTSIDE RECORDS SUMMARY | 2024-12-25 00:28 | XMS_ITS | Encounter Summary ---
Author Organization [place] [address] Care Team Providers Care Pipeline Systems Operator Name Role Phone Unavailable Primary Care Provider Unavailabl e Reason for Visit * Reason Comments Medication Refill Encounter Details Date Type Department Care Team (Late st Contact Info) Description 10/26/2024 Refill [facility] [address] [place] [address] Christa Cortes, PRODUCTION PLANNER SCHEDULER [address] [place] [address] Medication Refill Social History Tobacco [...] Date Recorded PHQ-2 Total Score 0 10/10/2023 [facility] [place] of Occupat ional Health - Occupational Stress [...]
--- OUTSIDE RECORDS SUMMARY | 2024-12-25 00:28 | XMS_ITS | Encounter Summary ---
Author Organization [place] [address] Care Team Providers Care Sales Professional Name Role Phone Unavailable Primary Care Provider Unavailabl e Reason for Visit * Reason Comments Medication Refill Encounter Details Date Type Department Care Team (Late st Contact Info) Description 11/04/2024 Refill [facility] [address] [place] [address] Christa Cortes, RIGHT OF WAY CUTTER [address] [place] [address] Medication Refill Social History Tobacco [...] Date Recorded PHQ-2 Total Score 0 10/10/2023 [facility] [place] of Occupat ional Health - Occupational Stress [...] place to sleep or slept in a intermediate (including now)? No 03/07/2023 Sexually Active Control [...]
--- OUTSIDE RECORDS SUMMARY | 2024-12-25 00:28 | XMS_ITS | Encounter Summary ---
Author Organization [facility] Address [address] [place] [address] Care Team Providers Care Livestock Yard Attendant Name Role Phone Carlo Mejia MD Primary Care Provider Un available Nonstaff, Referring Primary Care Provider Unavai Dahlia Mcfarland APRN Primary Care Provider [phone] Shannon Stern LPN Unavailable Unavailable Arias Oliveira MD Primary Care Provider Unav ailDahlia Nolan APRN Primary Care Provider [phone] Shannon Stern LPN Unavailable Unavailable Christa Cortes APRN Primary Care Provider [phone] Cb Stone DO, Viral Primary Care Provider [phone] Eva Pride RN Unavailable Unavaila ble Christa Cortes APRN Primary Care Provider [phone],LD Unavailable Unavailabl e Reason for Visit * Reason Onset Date Comments Medication Refill 03/13/2017 Encounter Details Date Type Department Care Team (Late st Contact Info) Description 03/13/2017 Refill [facility] Neph[facility] [address] [place] [address] Tamera Rodrigues MD [address] [place] [address] Medication Refill Social History Tobacco [...] documented as of this encounter Care Teams Livestock Yard Attendant Relationship Specialty Start Date End Date Carlo Mejia MD PCP - General Family Medicine 01/23/16 11/19/17 Nonstaff, Referring PCP - General 11/20/17 01/05/18 Dahlia Gagnon APRN PCP - General Nurse Practitioner 01/06/18 04/27/18 Arias Oliveira MD PCP - General Family Medicine 04/28/18 07/23/18 Dahlia Gagnon APRN PCP - General Nurse Practitioner 07/24/18 02/22/20 Christa Cortes APRN [address] [place] [address] PCP - General Nurse Practitioner 02/23/20 01/24/21 Shaun Vivar DO [address] [place] [address] PCP - General Family Medicine 01/25/21 09/25/21 Christa Cortes APRN [address] [place] [address] PCP - General Nurse Practitioner 09/26/21 02/01/24 Shannon Stern LPN [facility] 04/01/18 06/18/18 Shannon Stern LPN Clinical Analyst 12/24/18 08/17/19 Eva Pride RN Clinical Analyst Registered Nurse 09/03/[address],LD Dietitian 10/02/22 10/03/22 documented as of this encounter
--- OUTSIDE RECORDS SUMMARY | 2024-12-25 00:28 | XMS_ITS | Encounter Summary ---
Author Organization [place] [address] Care Team Providers Care Tank Driver Name Role Phone Dahlia Gagnon APRN Primary Care Provider [phone] Shannon Stern LPN Unavailable Unavailable Christa Cortes APRN Primary Care Provider [phone] Cb Stone DO, Viral Primary Care Provider [phone] Eva Pride RN Unavailable Unavaila Christa Newman APRN Primary Care Provider [phone],LD Unavailable Unavailabl e Reason for Visit * Reason Onset Date Comments Medication Refill 08/20/2018 Encounter Details Date Type Department Care Team (Late st Contact Info) Description 08/20/[address] [address] Dahlia Gagnon APRN [address] [address] Medication Refill Social History Tobacco [...] documented as of this encounter Care Teams Tank Driver Relationship Specialty Start Date End Date Dahlia Gagnon APRN PCP - General Nurse Practitioner 07/24/18 02/22/20 Christa Cortes APRN [facility] [place] [address] PCP - General Nurse Practitioner 02/23/20 01/24/21 Shaun Vivar DO [address] [place] [address] PCP - General Family Medicine 01/25/21 09/25/21 Christa Cortes APRN [address] [place] [address] PCP - General Nurse Practitioner 09/26/21 02/01/24 Shannon Stern LPN Topper Press Operator Automatic 12/24/18 08/17/19 Eva Pride RN Topper Press Operator Automatic Registered Nurse 09/03/[address],LD Dietitian 10/02/22 10/03/22 documented as of this encounter
--- OUTSIDE RECORDS SUMMARY | 2024-12-25 00:28 | XMS_ITS | Clinical Summary ---
Author Organization [facility] Address [address] [place] [address] Phone Care Team Providers Care Bankruptcy Judge Name Role Phone Unavailable Primary Care Provider [...] taking.Reason: Therapy Completed, Reported on 01/08/2024 Insulin [place], Disposable, (RUFINO PEN NEEDLE) 32 gauge x [...] (02/06/2022): Added automatically from request for surgery [id number] Left facial numbness 08/31/2021 CKD (chronic kidney [...] Department Care Team Description 11/04/2024 Refill [facility] [address] [place] [address] Shani Cortesa, WET ROLLER Medication Refill 10/26/2024 Refill [facility] [address] [place] [address] Shani Cortesa, WET ROLLER Medication Refill 10/05/2024 Patient Outreach [facility] [address] [place] [address] Tasha Emery RN Central Patient [...] N/A Colonoscopy; Surgeon: Tay Monroe MD; Location: [facility] END[facility]; Service: Endoscopy Medical History Medical History [...] Date Recorded PHQ-2 Total Score 0 10/10/2023 [facility] - Occupational Stress Questionnaire Answer Date Recorded [...] place to sleep or slept in a penitentiary (including now)? No 03/07/2023 Sexually Active Control [...] HEMOGLOBIN A1C (10/08/2023 6:27 PM EDT) Pathologist [facility] Hgb A1C 7.0(H) 4.2 - 5.6 % 10/10/2023 5:46 PM EDT [facility] Est. Avg Glucose 154 mg/dL 10/10/2023 5:46 PM EDT [facility] Blood VENOUS BLOOD / Unknown Venipuncture / Unknown 10/08/2023 6:27 PM EDT 10/08/2023 6:27 PM EDT Narrative [facility] - 10/10/2023 5:46 PM EDT REFERENCE RANGE: Normal: 4.0-5.6% Pre-diabetes: 5.7-6.4% Provisional diagnosis of diabetes: >6.4% Hgb F>10% and anything which shortens red cell survival, such as hemolytic anemia, or unstable hemoglobin variants such as HbSS, HbSC, or HbCC, will lower the HbA1c value associated with a given level of glycemic control. us Christa Cortes APRN CHEMISTRY ORDERABLES Final Res ult [facility] [address] [place] [address] , [place] [address] * (ABNORMAL) BASIC METABOLIC PANEL (10/08/2023 6:26 PM EDT) Pathologist [facility] Sodium 136 136 - 145 mmol/L 10/08/2023 6:47 PM EDT [facility] Potassium 4.1 3.5 - 5.0 mmol/L 10/08/2023 6:47 PM EDT [facility] Chloride 98 98 - 107 mmol/L 10/08/2023 6:47 PM EDT [facility] Total CO2 28 22 - 29 mmol/L 10/08/2023 6:47 PM EDT [facility] Anion Gap 10 7 - 16 mmol/L 10/08/2023 6:47 PM EDT [facility] Calcium 10.1 8.8 - 10.4 mg/dL 10/08/2023 6:47 PM EDT [facility] Glucose Lvl 170(H) 70 - 99 mg/dL 10/08/2023 6:47 PM EDT [facility] BUN 17 8 - 23 mg/dL 10/08/2023 6:47 PM EDT [facility] Creatinine 1.00 0.51 - 1.30 mg/dL 10/08/2023 6:47 PM EDT [facility] eGFR (CKD-EPIcr 2020) 64 >=60 mL/min/1.7 3 m2 10/08/2023 6:47 PM EDT [facility] Comment:Estimated GFR was ca lculated using the CKD-EPIcr (2020) equation refit without race. The equation is recommended by the National Kidney Foundation - [place] [employer]ph[employer] Task Force. Blood VENOUS BLOOD / Unknown Venipuncture / Unknown 10/08/2023 6:26 PM EDT 10/08/2023 6:26 PM EDT us Kishore Garcia MD CHEMISTRY ORDERABLES Final Resul t [facility] [address] [place] [address] * (ABNORMAL) LIPID SCREEN (04/07/2023 11:09 AM EDT) Cholesterol 140 <200 mg/dL 04/07/2023 3:59 PM EDT [facility] [place] Comment: < 200 Desirable 200 - 239 Borderline High >= 240 High Triglyceride 202(H) <150 mg/dL 04/07/2023 3:59 PM EDT [facility] [place] Comment: < 150 Normal 150 - 199 Borderline High 200 - 499 High >= 500 Very High HDL 33(L) >=40 mg/dL 04/07/2023 3:59 PM EDT [facility] [place] Comment: > 60 Optimal 40 - 60 Acceptable < 40 Low LDL Calculated 73 <100 mg/dL 04/07/2023 3:59 PM EDT [facility] [place] Comment: < 100 Optimal 100 - 129 Near or above optimal 130 - 159 Borderline High 160 - 189 High >= 190 Very High Non-HDL-C Calculated 107 <=129 mg/dL 04/07/2023 3:59 PM EDT [facility] Comment: <130 Desirable 130-159 Above Desirable 160-189 Borderline High 190-219 High >= 220 Very High Fasting Specimen? Yes None 023 3:59 PM EDT [facility] Blood VENOUS BLOOD / Unknown Venipuncture / Unknown 04/07/2023 11:09 AM EDT 04/07/2023 11:09 AM EDT us Christa Cortes WET ROLLER CHEMISTRY ORDERABLES Final Res ult [facility] [place], [place] [address] [facility] [address] [place] [address] * [facility] COLONOSCOPY (02/13/2022 9:40 AM EDT) 02/13/2022 9:40 AM EDT Impressions [facility] - 02/13/2022 10:23 AM EDT Plan: This section is an excerpt of the full report. Tay Monroe MD GI PROCEDURE ORDERABLES Patsy l Result Performing Organization Address [facility]/ZIP Co de Phone Number [facility] [address] [place] [address] * MM MAMMO DIGITAL PIERRE SCREEN BILAT (11/07/2021 1:09 PM EDT) Anatomical Region Laterality Modality Breast Bilateral Mammography 11/07/2021 3:07 PM EDT Impressions 11/07/2021 3:07 PM EDT Benign finding ([id number]) ~ RECOMMENDATION: Routine screening mammogram in 1 [...] the next mammogram, in accordance with the [place] [employer] and the Society of Breast Imaging recommendations. Narrative 11/07/2021 3:07 PM EDT Procedure:MM MAMMO DIGITAL PIERRE SCREEN BILAT ~ Reason for exam: screening, asymptomatic. Z12.31-Encounter for screening mammogram for malignant neoplasm of [id number] ~ MM MAMMO DIGITAL PIERRE SCREEN BILAT [...] for screening mammogram for malignant neoplasm of [id number] ~ MM MAMMO DIGITAL PIERRE SCREEN BILAT Bilateral CC and MLO view(s) were taken. There are scattered fibroglandular densities. Prior study comparison: Compared with prior studies the most recentbeing 07/23/16, 10/12/14 No mammographic evidence of malignancy. Stable less than 1 cm nodular density in the RIGHT 9:00 position best seen on the CC view ~ IMPRESSION: Benign finding ([id number]) ~ RECOMMENDATION: Routine screening mammogram in 1 [...] the next mammogram, in accordance with the [place] [employer] and the Society of [...] ve 01/07/2018 5:31 PM EDT [facility] Blood VENOUS BLOOD / Unknown Venipuncture / Unknown 01/07/2018 7:51 AM EDT 01/07/2018 7:51 AM EDT us Dahlia Gagnon WET ROLLER HEMATOLOGY ORDERABLES Final Result [facility] [address] [facility] , [address] [place] [id number] from Last 3 Months or Most Recently Relevant to Health Maintenance Insurance [facility] MEDICAID [facility] MEDICAID Advance Directives For more information, please contact: [phone] * Full Code (Latest Code Status on [...]
[2024-12-25 00:29] LABS: Microscopic, Urine URINE MICROSCOPIC (MICROSCOPIC)
[2024-12-25] MEDS: ACETAMINOPHEN 500MG TAB 1000 MG PO (00:38)
[2024-12-25] MEDS: KETOROLAC 30MG/ML VIAL 15 MG IV (00:39)
[2024-12-25 00:44] LABS: Basophils # 0.1 K/mm3 (0-0.2); Basophils % 1.9 % (0.1-2.0); Eosinophils # 0.8 Kmm3 (0.0-0.4); Eosinophils % 10.8 % (0.1-12.0); Hematocrit 36.2 % (37.0-47.0); Hemoglobin 11.6 g/dL (12.2-16.2); Immature Granulocytes # 0.02 10^3uL; Immature Granulocytes % 0.3 %; Lymphocytes # 2.3 K/mm3 (0.7-4.5); Lymphocytes % 32.4 % (10-50); Mean Corpuscular Hemoglobin 27.4 pg (27.0-31.2); Mean Corpuscular Volume 85.4 fl (81-99); Mean Platelet Volume 10.7 fl (7.4-10.4); Monocytes # 0.4 K/mm3 (0.1-1.0); Monocytes % 6.1 % (1.7-9.3); Neutrophils # 3.5 K/mm3 (1.8-7.8); Neutrophils % 48.5 % (37.0-80.0); Nucleated Red Blood Cells # 0 10^3/uL; Nucleated Red Blood Cells % 0 %; Platelet Count 278 K/mm3 (142-424); Red Blood Count 4.24 M/mm3 (4.20-5.40); Red Cell Distribution Width 14.3 % (11.5-17.5); Red Cell Distribution Width-SD 44.3 fL; White Blood Count 7.2 K/mm3 (4.8-10.8)
[2024-12-25 00:48] LABS: Appearance,Urine CLEAR (Clear); Bilirubin,Urine Negative (Negative); Blood, Urine TRACE-I (Negative); Color,Urine YELLOW (Yellow); Glucose,Urine (UA) Negative (Negative); Ketones,Urine Negative (Negative); Leukocyte Esterase,Urine Negative (Negative); Nitrate,Urine POSITIVE (Negative); PH,Urine 6.5 (5.0-8.5); Protein,Urine Negative (Negative); Specific Gravity, Urine <= 1.005 (1.005-1.030)
[2024-12-25 00:51] LABS: Squamous Epithelial Cell,Urine Occasional #/hpf (0-5)
[2024-12-25 00:54] LABS: Bacteria,Urine 1+ /lpf
[2024-12-25 01:05] LABS: Alanine Aminotransferase 19 U/L (12-78); Albumin Level 4.6 g/dl (3.5-5.0); Albumin/Globulin Ratio 1.2 (1.1-1.8); Alkaline Phosphatase 89 U/L (38-126); Aspartate Amino Transferase 30 U/L (14-36); Bilirubin,Total 0.6 mg/dl (0.2-1.3); Blood Urea Nitrogen 18 mg/dl (7-17); Calcium 10.3 mg/dl (8.4-10.2); Carbon Dioxide 30 mmol/L (22.0-30.0); Chloride 98 mmol/L (98-107); Creatinine Clearance Estimated 52 mL/min (50-200); Estimated Glomerular Filt Rate 50 ml/min (>60); GFR (African American) 61 ML/MIN (>60); Glucose 161 mg/dl (74-100); Sodium 137 mmol/L (136-145); Total Protein,Serum 8.6 g/dl (6.3-8.2)
[2024-12-25 01:38] VITALS: BP 148/89; PULSE 74; O2SAT 96
[2024-12-25] MEDS: CEFTRIAXONE 1 GM 1 GM in 0.9 % SODIUM CHLORIDE 50 ML IV (01:40)
[2024-12-25] MEDS: METHOCARBAMOL 500MG TABLET 1000 MG PO (01:40)
[2024-12-25 02:10] VITALS: BP 128/80; PULSE 66; RESP 20; TEMP 36.6; O2SAT 98
--- NOTE | 2024-12-25 02:12 | PC.NURSE ---
IV discontinued. Catheter tip intact. Bleeding controlled.
--- NOTE | 2024-12-27 10:32 | PC.NURSE ---
I discussed the pts prelim urine culture results with . NO change needed in treatment plan at this time.
== END 2024-12-25 02:14 | disposition home or self-care (01) ==
PROVIDERS: Emergency Provider Emergency Medicine; PCP Family Medicine
DX: N10 Acute pyelonephritis (principal); M54.59 Other low back pain; B96.5 Pseudomonas (aeruginosa) (mallei) (pseudomallei) as the cause of diseases classified elsewhere
CPT/HCPCS: 74176; 80053; 81001; 85025; 87040; 87086; 87088; 87186; 96365; 96375; 99284; J0696; J1885

== ENCOUNTER 2025-01-05 10:53 | Emergency (ER) | payer MEDICAID, SELFPAY ==
--- OUTSIDE RECORDS SUMMARY | 2018-02-11 08:25 | XMS_ITS | Encounter Summary ---
Author Organization [place] [address] Care Team Providers Care Easter Bunny Name Role Phone Dahlia Gagnon APRN Primary Care Provider Encounter Details Date Type Department Care Team (Latest Contact Info) Description 02/11/2018 8:25 AM EDT Hospital Encounter [facility] [address] [facility]. [place], [place] [phone] Left without seen Social History Tobacco Use [...] Date Recorded PHQ-2 Total Score 0 10/10/2023 [facility] [place] of Occupat ional Health - Occupational Stress [...] place to sleep or slept in a [place] [facility] [place] (including now)? No 03/07/2023 Sexually Active Control [...] 5:43 PM EDT Faby Chang RN * [place] Suicide Severity Rating Scale (Q shift for [...] documented as of this encounter Care Teams Easter Bunny Relationship Specialty Start Date End Date Dahlia Gagnon APRN PCP - General Nurse Practitioner 01/06/18 04/27/18 documented as of this encounter
[2025-01-05] VITALS (10 sets, daily range): BP systolic 119–156; BP diastolic 65–97; PULSE 60–72; RESP 13–19; TEMP 36.7–37.1; O2SAT 95–98; BMI 42.1
--- OUTSIDE RECORDS SUMMARY | 2025-01-05 11:07 | XMS_ITS | Encounter Summary ---
Author Organization [facility] Address [address] [place] [address] Care Team Providers Care Certified Nurse Midwife Name Role Phone Carlo Mejia MD Primary Care Provider Un available Nonstaff, Referring Primary Care Provider Unavai Dahlia Mcfarland APRN Primary Care Provider [phone] Shannon Stern LPN Unavailable Unavailable Arias Oliveira MD Primary Care Provider Unav ailDahlia Nolan APRN Primary Care Provider [phone] Shannon Stern LPN Unavailable Unavailable Christa Cortes APRN Primary Care Provider [phone] Cb Stone DO, Viral Primary Care Provider [phone] Eva Pride RN Unavailable Unavaila ble Christa Cortes APRN Primary Care Provider [phone],LD Unavailable Unavailabl e Reason for Visit * Reason Onset Date Comments Medication Refill 03/13/2017 Encounter Details Date Type Department Care Team (Late st Contact Info) Description 03/13/2017 Refill [facility] [address] [place] [address] Tamera Rodrigues MD [address] [place] [address] Medication Refill Social History Tobacco [...] documented as of this encounter Care Teams Certified Nurse Midwife Relationship Specialty Start Date End Date Carlo Mejia MD PCP - General Family Medicine 01/23/16 11/19/17 Nonstaff, Referring PCP - General 11/20/17 01/05/18 Dahlia Gagnon APRN PCP - General Nurse Practitioner 01/06/18 04/27/18 Arias Oliveira MD PCP - General Family Medicine 04/28/18 07/23/18 Dahlia Gagnon APRN PCP - General Nurse Practitioner 07/24/18 02/22/20 Christa Cortes APRN [address] [place] [address] PCP - General Nurse Practitioner 02/23/20 01/24/21 Shaun Vivar DO [address] [place] [address] PCP - General Family Medicine 01/25/21 09/25/21 Christa Cortes APRN [address] [place] [address] PCP - General Nurse Practitioner 09/26/21 02/01/24 Shannon Stern LPN Health Advocate 04/01/18 06/18/18 Shannon Stern LPN Underwear Finisher 12/24/18 08/17/19 Eva Pride RN Underwear Finisher Registered Nurse 09/03/[address],LD Dietitian 10/02/22 10/03/22 documented as of this encounter
--- OUTSIDE RECORDS SUMMARY | 2025-01-05 11:07 | XMS_ITS | Encounter Summary ---
Author Organization [place] [address] Care Team Providers Care Duct Layer Supervisor Name Role Phone Dahlia Gagnon APRN Primary Care Provider [phone] Shannon Stern LPN Unavailable Unavailable Christa Cortes APRN Primary Care Provider [phone] Cb Stone DO, Viral Primary Care Provider [phone] Eva Pride RN Unavailable Unavaila Christa Newman APRN Primary Care Provider [phone],LD Unavailable Unavailabl e Reason for Visit * Reason Onset Date Comments Medication Refill 08/20/2018 Encounter Details Date Type Department Care Team (Late st Contact Info) Description 08/20/[address] [address] Dahlia Gagnon APRN [address] [address] Medication Refill Social History Tobacco [...] documented as of this encounter Care Teams Duct Layer Supervisor Relationship Specialty Start Date End Date Dahlia Gagnon APRN PCP - General Nurse Practitioner 07/24/18 02/22/20 Christa Cortes APRN [facility] [place] [address] PCP - General Nurse Practitioner 02/23/20 01/24/21 Shaun Vivar DO [address] [place] [address] PCP - General Family Medicine 01/25/21 09/25/21 Christa Cortes APRN [address] [place] [address] PCP - General Nurse Practitioner 09/26/21 02/01/24 Shannon Stern LPN Farm Implement Mechanic 12/24/18 08/17/19 Eva Pride RN Farm Implement Mechanic Registered Nurse 09/03/[address],LD Dietitian 10/02/22 10/03/22 documented as of this encounter
--- OUTSIDE RECORDS SUMMARY | 2025-01-05 11:07 | XMS_ITS | Encounter Summary ---
Author Organization [place] [address] Care Team Providers Care Corporate Staff Accountant Name Role Phone Unavailable Primary Care Provider Unavailabl e Reason for Referral * Medication Prior Authorization - Closed Specialty Diagnoses / Procedures Referred By Gee t Referred To Contact Diagnoses Asthma, unspecified asthma severity, unspecified whether complicated, unspecified whether persistent Christa Cortes APRN [address] [place] [address] Phone: tel: fax: Referral ID Status Reason Start Date Expiration Date Visits Re quested Visits Authorized [id number] Closed 1 1 Reason for Visit * Reason Comments Medication Refill Encounter Details Date Type Department Care Team (Late st Contact Info) Description 12/29/2024 Refill [facility] [address] [place] [address] Christa Cortse APRN [address] [place] [address] Medication Refill Social History Tobacco [...] you are drinking? Patient does not drink 3 Q3: How often do you have si x or more drinks on one occasion? Never 10/02/2022 Overall Financial Resource Strain (CARDIA) Answe r Date Recorded How hard is it for you to pa y for the very basics like food, housing, medical care, and heating? Not hard at all 10/02/2022 PHQ-2 Answer Date Recorded PHQ-2 Total Score 0 10/10/2023 [employer] [facility] - Occupational Stress [...] place to sleep or slept in a assisted (including now)? No 03/07/2023 Sexually Active Control [...] of Assessment Author No 10/10/2023 1:39 PM Emeli Lawson CCMA documented as of this encounter Mental Status * Because of a physical, mental or emotional condition, does this person have serious difficulty concentrating, remembering or making decisions? Answer Entry Date Author No 10/10/2023 1:39 PM EDEmeli Hayward CCMA documented in this encounter Ordered Prescriptions Prescription Sig Dispense Quantity Refills Last Filled Start Date End Date albuterol (PROVENTIL HFA;VENTOLIN HFA) 90 mcg/actuation Inhl HFA Aerosol InhalerIndications :Asthma, unspecified asthma severity, unspecified whether complicated, unspecified whether persistent INHALE 2 PUFFS BY MOUTH EVERY 6 HOURS NEEDED FOR WHEEZING 18 g 12/29/2024 documented in this encounter Miscellaneous Notes * Telephone Encounter - Karina Appiah CPhT - 12/29/2024 7:04 AM EDT Medication refill request deferred to office [...] as of this encounter Visit Diagnoses Diagnosis Asthma, unspecified asthma severity, unspecified whether complicated, unspecified whether persistent documented in this encounter Discontinued Medications Medication Sig Discontinue Reason Start Date End Da te albuterol (VENTOLIN HFA) 90 mcg/actuation Inhl HFA Aerosol InhalerIndications:Asthm a, unspecified asthma severity, unspecified whether complicated, unspecified whether persistent INHALE 2 PUFFS BY MOUTH EVERY 6 HOURS NEEDED FOR WHEEZING 06/01/2024 12/29/2024 documented as of this encounter
--- OUTSIDE RECORDS SUMMARY | 2025-01-05 11:08 | XMS_ITS | Clinical Summary ---
Author Organization [facility] Address [address] [place] [address] Phone Care Team Providers Care Image Editor Name Role Phone Unavailable Primary Care Provider [...] Take 81 mg by mouth daily. Active Cholecalciferol , Vitamin D3, 2,000 unit Oral Tablet Take 1 Tablet by mouth daily. 3 09/22/19 19 Active Lancets Misc MiscIndications :Type 2 diabetes mellitus without complication, without long-term current use of insulin (HCC) Test twice daily 100 Each 11 08/08/19 23 Active Blood-Glucose Meter Misc MiscIndications :Type 2 diabetes mellitus without complication, without long-term current use of insulin (HCC) Test twice daily. Coverage per insurance. Dx: E11.9 1 Each 08/08/19 23 Active Blood Sugar Diagnostic Misc StripIndication s:Type 2 diabetes mellitus without complication, without long-term current use of insulin (HCC) Test twice daily. Coverage per insurance. Dx: E11.9 100 Strip 11 02/09/20 23 Active Melatonin 3 mg Oral Tablet Take 5 mg by mouth nightly. Active baclofen (LIORESAL) 10 mg Oral TabletIndicatio ns:Chronic midline posterior neck pain Take 1 Tablet by mouth 2 times daily. 60 Tablet 1 05/19/20 23 Active hydrALAZINE (APRESOLINE) 50 mg Oral TabletIndicatio ns:Essential hypertension Take 1 Tablet by mouth 4 times daily as needed (for SBP >160 or DBP >105). 60 Tablet 2 08/07/19 24 Active predniSONE (DELTASONE) 20 mg Oral Tablet Take 2 Tablets by mouth daily. 6 Tablet 10/08/19 24 Active Additional Information Patient not taking.Reason: Therapy Completed, Reported on 01/08/2024 Insulin Howard, Disposable, (RUFINO PEN NEEDLE) 32 gauge x 5/32 Misc NeedleIndicatio ns:Type 2 diabetes mellitus without complication, without long-term current use of insulin (HCC) USE DAILY WITH INSULIN Strength: 32 gauge x 5/32 100 Each 2 10/10/19 24 Active amLODIPine (NORVASC) 10 mg Oral TabletIndicatio ns:Essential hypertension Take 1 Tablet by mouth daily. 90 Tablet 1 10/10/19 24 Active hydroCHLOROthia zide 25 mg Oral TabletIndicatio ns:Essential hypertension Take 1 Tablet by mouth daily. 90 Tablet 3 10/10/19 24 Active DULoxetine (CYMBALTA) 30 mg Oral Capsule, Delayed Release(E.C.)In dications:Gener alized anxiety disorder Take 1 Capsule by mouth daily. 30 Capsule 1 10/10/19 24 Active dapagliflozin propanediol (FARXIGA) 10 mg Oral TabletIndicatio ns:Type 2 diabetes mellitus without complication, without long-term current use of insulin (HCC) Take 1 Tablet by mouth daily. 90 Tablet 1 10/11/19 24 Active potassium chloride SA (KLOR-CON M) 10 mEq Oral Tab Sust.Rel. Particle/Cahru lIndications:Es sential hypertension Take 1 Tablet by mouth as needed. 30 Tablet 5 12/18/19 24 Active cyclobenzaprine (FLEXERIL) 10 mg Oral TabletIndicatio ns:Fibromyalgia ,Strain of neck muscle, initial encounter Take 1 Tablet by mouth every 8 hours as needed for Muscle spasms. 90 Tablet 5 12/18/19 24 Active esomeprazole (NEXIUM) 40 mg Oral Capsule, Delayed Release(E.C.)In dications:Gastr oesophageal reflux disease with esophagitis without hemorrhage Take 1 Capsule by mouth daily. 90 Capsule 1 01/02/20 24 Active lidocaine (LIDODERM) 5 % Top Adhesive Patch, Medicated Place 1 Patch onto the skin every 12 hours. 10 Patch 01/08/20 24 Active clobetasoL (TEMOVATE) 0.05 % Top Cream Apply topically 2 times daily. 60 g 01/08/20 24 Active insulin glargine (LANTUS) 100 unit/mL (3 mL) SubQ Insulin PenIndications: Type 2 diabetes mellitus without complication, without long-term current use of insulin (HCC) Subcutaneous (Inject under the skin) 20 Units 2 times daily. 36 mL 1 01/12/20 24 Active metoprolol succinate ER (TOPROL-XL) 100 mg Oral Tablet Sustained Release 24 hrIndications:E ssential hypertension TAKE 1 TABLET BY MOUTH DAILY 90 Tablet 04/07/20 24 Active lisinopriL (PRINIVIL;ZESTR IL) 40 mg Oral TabletIndicatio ns:Essential hypertension TAKE 1 TABLET BY MOUTH DAILY FOR BLOOD PRESSURE 90 Tablet 1 07/28/19 25 Active metFORMIN (GLUCOPHAGE XR) 500 mg Oral ER 24 hr tabletIndicatio ns:Type 2 diabetes mellitus without complication, without long-term current use of insulin (HCC) TAKE 2 TABLETS BY MOUTH TWICE DAILY WITH MEALS 120 Tablet 10/28/19 25 Active atorvastatin (LIPITOR) 40 mg Oral TabletIndicatio ns:Hyperlipidem ia with target LDL less than 100 TAKE 1 TABLET BY MOUTH EVERY NIGHT FOR CHOLESTEROL 30 Tablet 11/05/19 25 Active albuterol (PROVENTIL HFA;VENTOLIN HFA) 90 mcg/actuation Inhl HFA Aerosol InhalerIndicati ons:Asthma, unspecified asthma severity, unspecified whether complicated, unspecified whether persistent INHALE 2 PUFFS BY MOUTH EVERY 6 HOURS NEEDED FOR WHEEZING 18 g 12/30/19 25 Active albuterol (VENTOLIN HFA) 90 mcg/actuation Inhl HFA Aerosol InhalerIndicati ons:Asthma, unspecified asthma severity, unspecified whether complicated, unspecified whether persistent INHALE 2 PUFFS BY MOUTH EVERY 6 HOURS NEEDED FOR WHEEZING 18 g 06/01/20 24 2024 Discontinued Active Problems Problem Noted Date Diagnosed Date Numbness and tingling of left side of face 09/30 Rectal bleeding 02/06/2022 Overview (02/06/2022): Added automatically from request for surgery [id number] Left facial numbness 08/31/2021 CKD (chronic kidney [...] Encounters Date Type Department Care Team Description 12/29/[address] [id number] Christa Cortes APRN Medication Refill 11/04/2024 Refill [facility] [address] [place] [address] Christa Cortes APRN Medication Refill 10/26/2024 Refill [facility] [address] [place] [address] Christa Cortes APRN Medication Refill from Last 3 Months Immunizations Immunization Administration [...] N/A Colonoscopy; Surgeon: Tay Monroe MD; Location: [facility]; Service: Endoscopy Medical History [...] Date Recorded PHQ-2 Total Score 0 10/10/2023 [facility] - Occupational Stress [...] place to sleep or slept in a senior living (including now)? No 03/07/2023 Sexually Active Control [...] 07/11/2021, Additional history exists Lipids 04/07/2024 04/07/2023, 04/0 09/2022, 09/01/2021, Additional history exists Hemoglobin A1c 04/08/2024 10/08/2023, 1002/2023, 12/10/2022, Additional history exists Kidney Health: eGFR 10/07/2024 10/08/2023, 05/18/2023, 05/13/2023, Additional history exists Annual Wellness Exam 10/09/2024 10/10/2023, 06/20/20 Kidney Health: uACR 10/09/2024 10/10/2023 Influenza Vaccine (#1) 2025 , 06/20/2022, 04/14/2020, Additional history exists Colon Cancer [...] (ABNORMAL) HEMOGLOBIN A1C (10/08/2023 6:27 PM EDT) Hgb A1C 7.0(H) 4.2 - 5.6 % 10/10/2023 5:46 PM EDT [facility] Est. Avg Glucose 154 mg/dL 10/10/2023 5:46 PM EDT [facility] Blood VENOUS BLOOD / Unknown Venipuncture / Unknown 10/08/2023 6:27 PM EDT 10/08/2023 6:27 PM EDT Narrative [facility] - 10/10/2023 5:46 PM EDT REFERENCE RANGE: Normal: 4.0-5.6% Pre-diabetes: 5.7-6.4% Provisional diagnosis of diabetes: >6.4% Hgb F>10% and anything which shortens red cell survival, such as hemolytic anemia, or unstable hemoglobin variants such as HbSS, HbSC, or HbCC, will lower the HbA1c value associated with a given level of glycemic control. us Christa Cortes APRN CHEMISTRY ORDERABLES Final Res ult [facility] [address] [facility] , [place] [address] * (ABNORMAL) BASIC METABOLIC PANEL (10/08/2023 6:26 PM EDT) Sodium 136 136 - 145 mmol/L 10/08/2023 6:47 PM EDT [facility] Potassium 4.1 3.5 - 5.0 mmol/L 10/08/2023 6:47 PM EDT [facility] Chloride 98 98 - 107 mmol/L 10/08/2023 6:47 PM EDT [facility] Total CO2 28 22 - 29 mmol/L 10/08/2023 6:47 PM EDT [facility] Anion Gap 10 7 - 16 mmol/L 10/08/2023 6:47 PM EDT [facility] Calcium 10.1 8.8 - 10.4 mg/dL 10/08/2023 6:47 PM EDT [facility] Glucose Lvl 170(H) 70 - 99 mg/dL 10/08/2023 6:47 PM EDT [facility] BUN 17 8 - 23 mg/dL 10/08/2023 6:47 PM EDT [facility] Creatinine 1.00 0.51 - 1.30 mg/dL 10/08/2023 6:47 PM EDT [facility] eGFR (CKD-EPIcr 2020) 64 >=60 mL/min/1.7 3 m2 10/08/2023 6:47 PM EDT [facility] Comment:Estimated GFR was ca lculated using the CKD-EPIcr (2020) equation refit without race. The equation is recommended by the National Kidney Foundation - [place] [employer] Neph[employer] Task Force. Blood VENOUS BLOOD / Unknown Venipuncture / Unknown 10/08/2023 6:26 PM EDT 10/08/2023 6:26 PM EDT us Kishore Garcia MD CHEMISTRY ORDERABLES Final Resul t [facility] [address] [place], [place] [id number] * (ABNORMAL) LIPID SCREEN (04/07/2023 11:09 AM EDT) Cholesterol 140 <200 mg/dL 04/07/2023 3:59 PM EDT [facility] Comment: < 200 Desirable 200 - 239 Borderline High >= 240 High Triglyceride 202(H) <150 mg/dL 04/07/2023 3:59 PM EDT [facility] Comment: < 150 Normal 150 - 199 Borderline High 200 - 499 High >= 500 Very High HDL 33(L) >=40 mg/dL 04/07/2023 3:59 PM EDT [facility] Comment: > 60 Optimal 40 - 60 Acceptable < 40 Low LDL Calculated 73 <100 mg/dL 04/07/2023 3:59 PM EDT [facility] Comment: < 100 Optimal 100 - 129 Near or above optimal 130 - 159 Borderline High 160 - 189 High >= 190 Very High Non-HDL-C Calculated 107 <=129 mg/dL 04/07/2023 3:59 PM EDT [facility] Comment: <130 Desirable 130-159 Above Desirable 160-189 Borderline High 190-219 High >= 220 Very High Fasting Specimen? Yes None 023 3:59 PM EDT [facility] Blood VENOUS BLOOD / Unknown Venipuncture / Unknown 04/07/2023 11:09 AM EDT 04/07/2023 11:09 AM EDT us Christa Cortes APRN CHEMISTRY ORDERABLES Final Res ult [facility] [address] [facility], [place] [address] [facility] [address] [place] [address] * GMED COLONOSCOPY (02/13/2022 9:40 AM EDT) 02/13/2022 9:40 AM EDT Impressions [facility] - 02/13/2022 10:23 AM EDT Plan: This section is an excerpt of the full report. us Tay Monroe MD GI PROCEDURE ORDERABLES Patsy l Result [facility] [address] [place] [address] * MM MAMMO DIGITAL PIERRE SCREEN BILAT (11/07/2021 1:09 PM EDT) Anatomical Region Laterality Modality Breast Bilateral Mammography 11/07/2021 3:07 PM EDT Impressions 11/07/2021 3:07 PM EDT Benign finding ([id number]) ~ RECOMMENDATION: Routine screening mammogram in 1 [...] the next mammogram, in accordance with the [place] [employer] and the Society of Breast Imaging recommendations. Narrative 11/07/2021 3:07 PM EDT Procedure:MM MAMMO DIGITAL PIERRE SCREEN BILAT ~ Reason for exam: screening, asymptomatic. Z12.31-Encounter for screening mammogram for malignant neoplasm of [id number] ~ MM MAMMO DIGITAL PIERRE SCREEN BILAT [...] for screening mammogram for malignant neoplasm of [id number] ~ MM MAMMO DIGITAL PIERRE SCREEN BILAT Bilateral CC and MLO view(s) were taken. There are scattered fibroglandular densities. Prior study comparison: Compared with prior studies the most recentbeing 07/23/16, 10/12/14 No mammographic evidence of malignancy. Stable less than 1 cm nodular density in the RIGHT 9:00 position best seen on the CC view ~ IMPRESSION: Benign finding ([id number]) ~ RECOMMENDATION: Routine screening mammogram in 1 [...] the next mammogram, in accordance with the [place] [employer] and the Society of Breast Imaging recommendations. us Christa Cortes APRN IMG MAMMOGRAPHY ORDERABLES Fin al Result * HM DIABETES EYE EXAM (09/20/2021) Left Diabetic Retinopathy Not Present Present/Not Present [facility] Right Diabetic Retinopathy Not Present Present/Not Present [facility]ICE 09/20/2021 us Historical Provider HEALTH MAINTENANCE Final Res ult [facility] OFF[facility] * HEPATITIS C ANTIBODY - SCREENING (01/07/2018 7:51 AM EDT) Hep C Ab Non-Reactiv e Non-Reacti ve 01/07/2018 5:31 PM EDT [facility] Blood VENOUS BLOOD / Unknown Venipuncture / Unknown 01/07/2018 7:51 AM EDT 01/07/2018 7:51 AM EDT us Dahlia Gagnon DRAWING TENDER HEMATOLOGY ORDERABLES Final Result [facility] [address] [place] [address] , [address] [place] [id number] from Last 3 Months or Most Recently Relevant to Health Maintenance Insurance [facility] MEDICAID [facility] MEDICAID [facility] MEDICAID Advance Directives For more information, please contact: [phone] * Full Code (Latest Code Status on [...]
--- NOTE | 2025-01-05 11:13 | XR_ITS ---
FINAL REPORT TECHNIQUE: Left femur, 4 views CLINICAL HISTORY: fall COMPARISON: None FINDINGS: LEFT FEMUR: 4 images of the left femur were obtained. There is no evidence of fracture or dislocation. The joint spaces are intact. There is mild vascular calcification of the superficial femoral artery. There is otherwise no soft tissue abnormality identified. IMPRESSION: No acute bony abnormality. Reviewed, Interpreted and Dictated by Kishore Johnson MD Transcribed by Kalyani Arcos Authenticated and [facility]
--- NOTE | 2025-01-05 11:13 | XR_ITS ---
FINAL REPORT CLINICAL HISTORY: fall COMPARISON: None FINDINGS: Two views of the right humerus were obtained. There is no acute fracture or dislocation. The joint spaces are well preserved. There is no acute soft tissue abnormality. IMPRESSION: No acute abnormality identified. Reviewed, Interpreted and Dictated by Kishore Johnson MD Transcribed by Thuy Fuller Authenticated and [facility]
--- NOTE | 2025-01-05 11:13 | XR_ITS ---
FINAL REPORT CLINICAL HISTORY: fall COMPARISON: None FINDINGS: 3 views of the right elbow were obtained. There is no acute fracture or dislocation. There is no joint effusion. The joint spaces are intact. There is no soft tissue abnormality. IMPRESSION: No acute bony abnormality. Reviewed, Interpreted and Dictated by Kishore Johnson MD Transcribed by Thuy Fuller Authenticated and [facility]
--- NOTE | 2025-01-05 11:13 | XR_ITS ---
FINAL REPORT CLINICAL HISTORY: fall COMPARISON: None FINDINGS: LEFT SHOULDER 3 views of the left shoulder were obtained. There is no acute fracture or dislocation. Visualized joint spaces are normally aligned. Soft tissues are unremarkable. IMPRESSION: No acute bony abnormality. Reviewed, Interpreted and Dictated by Kishore Johnson MD Transcribed by Thuy Fuller Authenticated and [facility]
--- NOTE | 2025-01-05 11:13 | XR_ITS ---
FINAL REPORT TECHNIQUE: Right femur 4 views CLINICAL HISTORY: fall COMPARISON: None FINDINGS: RIGHT FEMUR: 4 images of the right femur were obtained. There is no evidence of fracture or dislocation. The joint spaces are intact. Mild vascular calcifications are present in the superficial femoral artery. There is otherwise no soft tissue abnormality identified. IMPRESSION: No acute bony abnormality. Reviewed, Interpreted and Dictated by Kishore Johnson MD Transcribed by Kalyani Arcos Authenticated and [facility]
--- NOTE | 2025-01-05 11:13 | CT_ITS ---
FINAL REPORT TECHNIQUE: Axial imaging of the pelvis was obtained without contrast.This study was performed with techniques to keep radiation doses as low as reasonably achievable, (ALARA). Individualized dose reduction technique using automated exposure control or adjustment of mA and/or kV according to the patient's size were employed. CLINICAL HISTORY: fall FINDINGS: There is no acute fracture or dislocation. Hypertrophic changes are seen at the acetabular margins consistent with mild changes of osteoarthritis. Femoral heads are located bilaterally. Soft tissues demonstrate no acute abnormality. Sacral ala are intact. IMPRESSION: No acute bony abnormality of the pelvis. Reviewed, Interpreted and Dictated by Kishore Johnson MD Transcribed by Nathalia Street Authenticated and [facility]
--- NOTE | 2025-01-05 11:13 | XR_ITS ---
FINAL REPORT CLINICAL HISTORY: fall COMPARISON: None FINDINGS: RIGHT KNEE: 3 views of the right knee were obtained. There is no acute fracture or dislocation. The joint spaces are intact. There is no soft tissue abnormality. IMPRESSION: Unremarkable right knee. Reviewed, Interpreted and Dictated by Kishore Johnson MD Transcribed by Kalayni Arcos Authenticated and [facility]
--- NOTE | 2025-01-05 11:13 | XR_ITS ---
FINAL REPORT CLINICAL HISTORY: fall COMPARISON: None FINDINGS: LEFT KNEE 3 views of the left knee were obtained. There is no acute fracture or dislocation. Visualized joint spaces are normally aligned. Soft tissues are unremarkable. There is a small osteophyte projecting from the superior patella. IMPRESSION: No acute bony abnormality. Reviewed, Interpreted and Dictated by Kishore Johnson MD Transcribed by Kalyani Arcos Authenticated and [facility]
--- NOTE | 2025-01-05 11:13 | XR_ITS ---
FINAL REPORT CLINICAL HISTORY: fall COMPARISON: None FINDINGS: RIGHT SHOULDER Three views demonstrate no acute fracture or dislocation. Mild hypertrophic changes are noted of the acromioclavicular joint. The soft tissues are unremarkable. IMPRESSION: No acute process. Reviewed, Interpreted and Dictated by Kishore Johnson MD Transcribed by Thuy Fuller Authenticated and . [facility]
--- NOTE | 2025-01-05 11:13 | CT_ITS ---
FINAL REPORT TECHNIQUE: Axial images were performed through the brain.This study was performed with techniques to keep radiation doses as low as reasonably achievable, (ALARA). Individualized dose reduction techniques using automated exposure control or adjustment of mA and/or kV according to the patient''s size were employed. CLINICAL HISTORY: fall FINDINGS: There is mild atrophy. A physiologic calcification is seen in the right basal ganglia. The ventricles are normal in size for the degree of atrophy. There is no extra-axial fluid or midline shift. There is no evidence of acute hemorrhage or mass. There is mucosal thickening of the right maxillary sinus. No air-fluid levels are seen. IMPRESSION: Atrophy. No acute intracranial process. Reviewed, Interpreted and Dictated by Kishore Johnson MD Transcribed by Nathalia Street Authenticated and [facility]
--- NOTE | 2025-01-05 11:13 | CT_ITS ---
FINAL REPORT CLINICAL HISTORY: fall FINDINGS: Axial CT images of the thoracic spine were obtained without contrast. Sagittal and coronal reformatted images were also obtained. This study was performed with techniques to keep radiation doses as low as reasonably achievable (ALARA). Individualized dose reduction techniques using automated exposure control or adjustment of mA and/or kV according to the patient''s size were employed. There are prominent anterior osteophytes of the mid and lower thoracic spine. There is no evidence of fracture. The vertebral alignment is normal. There is no evidence of significant canal stenosis. No paraspinous soft tissue abnormality is identified. IMPRESSION: No fracture or acute bony abnormality. No significant central canal stenosis. Reviewed, Interpreted and Dictated by Kishore Johnson MD Transcribed by Nathalia Street Authenticated and [facility]
--- NOTE | 2025-01-05 11:13 | CT_ITS ---
FINAL REPORT TECHNIQUE: Axial imaging of the lumbar spine was obtained without contrast. Reformatted images were also obtained and reviewed.This study was performed with techniques to keep radiation doses as low as reasonably achievable, (ALARA). Individualized dose reduction techniques using automated exposure control or adjustment of mA and/or kV according to the patient's size were employed. CLINICAL HISTORY: fall, midline tender FINDINGS: There are moderate anterior osteophytes at T12-L1 and L1-2. There is no acute fracture or subluxation. The vertebra are normal height. There is no malalignment. Facets are properly aligned. Prevertebral soft tissues unremarkable. L1-2: Unremarkable. L2-3: Unremarkable. L3-4: Mild diffuse disc bulge with mild bilateral neuroforaminal narrowing. L4-5: Mild diffuse disc bulge with mild to moderate bilateral neuroforaminal narrowing. L5-S1: Moderate diffuse disc bulge with prominent asymmetric left facet hypertrophy. There is moderate to high-grade left and moderate right neuroforaminal narrowing. IMPRESSION: No acute bony abnormality. Degenerative change with moderate to high-grade neuroforaminal narrowing at L4-5 and L5-S1. Reviewed, Interpreted and Dictated by Kishore Johnson MD Transcribed by Nathalia Street Authenticated and [facility]
--- NOTE | 2025-01-05 11:18 | HMH.EDGENADL ---
Discharge Plan Disposition Patient Disposition: Home, Self-Care Prescriptions Prescriptions: New methocarbamol 500 mg tablet 1,000 mg PO Q8H PRN (Reason: muscle pain and spasm) Qty: 30 0RF Rx Instructions: Do not combine with other muscle relaxants No Action triamcinolone acetonide 0.5 % cream 1 applic topical BID Qty: 15 2RF Rx Instructions: apply to rash left thigh prn itching aspirin [Adult Aspirin Regimen] 81 mg tablet,delayed release (DR/EC) 81 mg PO DAILY (DME) blood sugar diagnostic Strip See Rx Instructions .Route Rx Instructions: As directed hydralazine 50 mg tablet 50 mg PO QID (DME) lancets 28 gauge misc See Rx Instructions .Route Rx Instructions: As directed lisinopril 40 mg tablet 40 mg PO DAILY potassium chloride 10 mEq capsule, extended release 10 meq PO DAILY ammonium lactate 12 % cream 1 applic topical BID Qty: 385 1RF phenazopyridine [Pyridium] 200 mg tablet 200 mg PO Q8H 2 Days Qty: 6 0RF nitrofurantoin monohyd/m-cryst [Macrobid] 100 mg capsule 100 mg PO Q12H 5 Days Qty: 10 0RF Rx Instructions: must administer with a meal/food (DME) blood-glucose meter Kit See Rx Instructions .ROUTE .MEDSUPPLY Qty: 1 0RF Rx Instructions: As directed or bid ,also the lancets and test strips to go with whatever Insurance will pay for albuterol sulfate [Ventolin HFA] 90 mcg/actuation HFA aerosol inhaler 2 puff inhalation Q6H PRN (Reason: wheezing) Qty: 8.5 5RF (DME) Blood Glucose Test Strip See Rx Instructions .Route Qty: 50 6RF Rx Instructions: used to check blood sugar qid. allopurinol 200 mg tablet 200 mg PO DAILY Qty: 30 0RF magnesium 200 mg tablet 200 mg PO BID Qty: 60 0RF metformin 500 mg tablet extended release 24 hr 1,000 mg PO BID 90 Days Qty: 360 0RF Rx Instructions: with meals atorvastatin 40 mg tablet 40 mg PO HS Qty: 90 0RF metoprolol succinate 100 mg tablet extended release 24 hr 100 mg PO DAILY Qty: 90 0RF cyclobenzaprine 10 mg tablet 10 mg PO TID PRN (Reason: muscle spasm) Qty: 60 1RF pregabalin [Lyrica] 50 mg capsule 50 mg PO TID Qty: 90 2RF esomeprazole magnesium 40 mg capsule,delayed release(DR/EC) 40 mg PO DAILY Qty: 90 0RF amlodipine 5 mg tablet 5 mg PO DAILY Qty: 90 0RF methocarbamol 500 mg tablet 1,000 mg PO Q6H PRN (Reason: pain) Qty: 30 0RF cefdinir 300 mg capsule 300 mg PO BID 5 Days Qty: 10 0RF Referrals Follow up/Referrals: Jamin Felix MD [Primary Care Provider, Family Practice] - See instructions Activity Restrictions/Add. Instructions Additional Instructions/Restrictions: At this time it was felt you are safe to be discharged home. If new or worsening symptoms please do not hesitate to return the emergency department. Please take your medications as prescribed and follow-up with your family doctor as you are able. We incidentally found that your L4 and L5 discs are squeezing on your nerves so if you begin having pain shooting down the backs of your legs this is not particularly dangerous but can explain your symptoms and follow-up with your family doctor for continued evaluation over the long-term. Clinical Impressions Clinical Impression: Fall, Groin strain, Back pain Print Language Print Language: Barbadian Discharge ED Provider: Michael Cline General Adult HPI General Chief complaint: Fall Stated complaint: [id number], L hip, R shoulder, back Time Seen by Provider: 01/05/25 11:02 Mode of Arrival: Ambulatory Source of Information: Patient Description of Symptoms (Recalled from ER Triage Doc. by RN): pt presents to ED with c/o fall around midnight last night. pt reports that her floors were wtet, she went to turn off the light and slipped on the floor, having a fall. pt reports pain in right arm/shoulder, left shoulder, lower back, right and left thigh, right and left knee, left ankle. pt reports no LOC, does take 81mg ASA daily. History of Present Illness HPI narrative: Patient is 64-year-old female not on anticoagulation presents emergency department for evaluation of traumatic injury sustained in a fall. Patient suffered a mechanical fall while turning for a light when she fell forwards doing a split striking her bilateral knees, bilateral shoulders. She complains of acute right elbow pain right shoulder pain left shoulder pain bilateral knee pain bilateral hip pain thoracolumbar spine pain. Patient is not on anticoagulants. No other acute complaints at this time. Please note that above description of symptoms, in this electronic medical record under categorization of recalled from ER triage doctor by RN are reflective of an initial nursing assessment, however, is not reflective of my full history and physical exam that was personally taken and clarified. Consequentially, this preceding description of symptoms, which may include the patient's categorized chief complaint in the EMR, do not reflect my personal clinical impression, and the ultimate description of history of present illness and patient stated complaints should be deferred to this section of the note. Unless stated otherwise or congruent with this section of the note, additional signs, symptoms, or incongruence should be interpreted as inaccurate with my clinical impression. Related Data Home Medications ?Medication ?Instructions ?Recorded ?Confirmed aspirin 81 mg tablet,delayed 81 mg PO DAILY 02/02/24 12/22/24 release (Adult Aspirin Regimen) blood sugar diagnostic 02/02/24 12/22/24 hydralazine 50 mg tablet 50 mg PO QID 02/02/24 12/22/24 lancets 28 gauge 02/02/24 12/22/24 lisinopril 40 mg tablet 40 mg PO DAILY 02/02/24 12/22/24 potassium chloride 10 mEq 10 meq PO DAILY 02/02/24 12/22/24 capsule,extended release Previous Rx's ?Medication ?Instructions ?Recorded triamcinolone acetonide 0.5 % 1 applic topical BID #15 grams 03/16/24 topical cream blood-glucose meter #1 ea 06/02/24 ammonium lactate 12 % topical cream 1 applic topical BID dry skin, 06/28/24 callus care #385 grams albuterol sulfate 90 mcg/actuation 2 puff inhalation Q6H PRN wheezing 07/07/24 aerosol inhaler (Ventolin HFA) #8.5 grams blood sugar diagnostic (Blood #50 ea 07/07/24 Glucose Test strips) allopurinol 200 mg tablet 200 mg PO DAILY #30 tabs 09/15/24 magnesium 200 mg tablet 200 mg PO BID #60 tabs 09/15/24 metformin 500 mg tablet,extended 1,000 mg (2 x 500 mg) PO BID 90 10/26/24 release 24 hr days #360 tabs atorvastatin 40 mg tablet 40 mg PO HS #90 tabs 05/09/25 metoprolol succinate 100 mg 100 mg PO DAILY #90 tabs 11/05/24 tablet,extended release 24 hr cyclobenzaprine 10 mg tablet 10 mg PO TID PRN muscle spasm #60 12/10/24 tabs pregabalin 50 mg capsule (Lyrica) 50 mg PO TID #90 caps 12/10/24 amlodipine 5 mg tablet 5 mg PO DAILY #90 tabs 12/15/24 esomeprazole magnesium 40 mg 40 mg PO DAILY #90 caps 12/15/24 capsule,delayed release nitrofurantoin 100 mg PO Q12H 5 days #10 caps 12/22/24 monohydrate/macrocrystals 100 mg capsule (Macrobid) phenazopyridine 200 mg tablet 200 mg PO Q8H 2 days #6 tabs 12/22/24 (Pyridium) cefdinir 300 mg capsule 300 mg PO BID 5 days #10 caps 12/25/24 methocarbamol 500 mg tablet 1,000 mg (2 x 500 mg) PO Q6H PRN 12/25/24 pain #30 tabs methocarbamol 500 mg tablet 1,000 mg (2 x 500 mg) PO Q8H PRN 01/05/25 muscle pain and spasm #30 tabs Allergies Allergy/AdvReac Type Severity Reaction Status Date / Time Penicillins Allergy Verified 12/22/24 14:42 sulfamethoxazole (From Allergy Verified 12/22/24 14:42 Bactrim) trimethoprim (From Bactrim) Allergy Verified 12/22/24 14:42 clonidine AdvReac Mild Hypotension Verified 12/22/24 14:42 gabapentin AdvReac Mild Anxiety Verified 12/22/24 14:42 PFSH PFSH Disclaimer: The information contained in this section may have been updated after the patient was seen, as this information can be updated by other users. Medical History Positive occult stool blood test Anemia Vitamin D deficiency Urinary incontinence, mixed Cuboid fracture Chronic kidney disease G3a Hypomagnesemia Arthritis Screening mammogram for breast cancer Gout Neuropathy due to herpes zoster Diabetic neuropathy Right ankle pain Right foot pain GERD (gastroesophageal reflux disease) Diabetes Hyperlipidemia Hypertension Acute lower gastrointestinal bleeding Hemorrhoids Left foot pain Surgical History H/O hysterectomy with oophorectomy Hx laparoscopic cholecystectomy around 2009 No pertinent past surgical history Family History Family/Other Diabetes Hyperlipidemia Hypertension Social History Smoking Status: Never smoker alcohol intake: never substance use type: denies use current occupational status: disabled Travel in the last 8 weeks?: None household members: family lives independently: Yes marital status: legally service: No residential: No Hx Recent Travel: No Have you lived/traveled outside [place] in past 30 days?: No Contact w/someone who lives/traveled outside [place] past 30 days?: No Exposure to someone with infectious disease in past 14 days?: No Do you have a fever (greater than 100.4 F or 38 C)?: No Have you tested positive for COVID-19?: No Exposed to someone with COVID-19 in past 14 days?: No Do you have a sore throat?: No Do you have a cough?: No Do you have any weakness?: No Do you have any diarrhea?: No Are you experiencing any unusual bleeding?: No Do you have any muscle aches/pain?: No Do you have any abdominal pain?: No Are you experiencing loss of taste or smell?: No Other Medical History Have you received the Pneumonia Vaccine: Yes ROS Obtained: Yes Systems reviewed as appropriate & no additional complaints except as documented Physical Exam General General appearance: alert and in no apparent distress Head Head exam: atraumatic and normocephalic Eye Eye exam: Present PERRL and EOMI ENT ENT exam: Present mucous membranes moist Neck Neck exam: Present normal inspection Chest Chest inspection: Present normal inspection and symmetric chest wall rise Respiratory Respiratory exam: Present normal lung sounds bilaterally; Absent respiratory distress Cardiovascular Cardiovascular exam: Present regular rate and normal rhythm Abdominal Exam Abdominal exam: Present soft; Absent tenderness Extremities Exam Extremities exam: Present normal inspection and tenderness (Bilateral shoulders, bilateral knees, right elbow. Distally neurovascular intact bilateral upper and lower extremities.) Back Exam Back exam: Present tenderness (Thoracolumbar midline, no cervical spine tenderness) Neurological Exam Neurological exam: Present alert Psychiatric Psychiatric exam: Present normal affect Skin Skin exam: Present warm and dry Medical Decision Making Medical Records Screening: Per USPSTF and CDC recommendations, given the prevalence of disease in our region, it is our hospital?s policy to screen for HIV and viral Hepatitis for all patients aged 18 and over and those with ongoing risk factors. Jean Inquiry Pt receiving controlled substance: No Vital Signs: 01/05/25 11:00 01/05/25 11:02 01/05/25 11:15 Temperature 98.7 F Temperature Source Oral Pulse Rate 72 72 Pulse Rate [Left Radial] 69 Respiratory Rate 19 Blood Pressure 156/87 H 143/87 H Blood Pressure [Right Arm] 156/87 H Blood Pressure Mean 104 103 Blood Pressure Mean [Right Arm] 110 Blood Pressure Source 02 Sat by Pulse Oximetry 97 97 97 Oxygen Delivery Method 01/05/25 12:14 Temperature Temperature Source Pulse Rate 68 Pulse Rate [Left Radial] Respiratory Rate Blood Pressure 121/67 Blood Pressure [Right Arm] Blood Pressure Mean Blood Pressure Mean [Right Arm] Blood Pressure Source Automatic Cuff 02 Sat by Pulse Oximetry 95 Oxygen Delivery Method Room Air Orders (Tests/Meds): ED MEDICATIONS Discontinued Medications Generic Name Dose Route Start Last Admin Trade Name Freq PRN Reason Stop Dose Admin Acetaminophen 1,000 mg 01/05/25 11:13 01/05/25 12:22 Acetaminophen 500mg Tab PO 01/05/25 11:14 1,000 mg ONCE ONE Administration Methocarbamol 1,000 mg 01/05/25 11:17 01/05/25 12:23 Methocarbamol 500mg Tablet PO 01/05/25 11:18 1,000 mg ONCE ONE Administration Morphine Sulfate 4 mg 01/05/25 11:13 01/05/25 12:24 Morphine 4mg/Ml Syringe IV 01/05/25 11:14 4 mg ONCE ONE Administration Ondansetron HCl 4 mg 01/05/25 11:13 01/05/25 12:23 Ondansetron 4mg/2ml Vial IV 01/05/25 11:14 4 mg ONCE ONE Administration ORDERS Category Date Time Status CT bony pelvis Stat Cat Scan 01/05/25 11:[address] head/brain wo con Stat Cat Scan 01/05/25 11:[address] lumbar spine wo con Stat Cat Scan 01/05/25 11:[address] thoracic spine wo con Stat Cat Scan 01/05/25 11:13 Completed Elbow XR right minimum 3 views [XR elbow RT min 3V] Exams 01/05/25 11:13 Completed Stat Femur XR left 2 views [XR femur LT 2V] Stat Exams 01/05/25 11:13 Completed Femur XR right 2 views [XR femur RT 2V] Stat Exams 01/05/25 11:13 Completed Humerus XR right [XR humerus RT] Stat Exams 01/05/25 11:13 Completed Knee XR left 3 views [XR knee LT 3V] Stat Exams 01/05/25 11:13 Completed Knee XR right 3 views [XR knee RT 3V] Stat Exams 01/05/25 11:13 Completed Shoulder XR left minimum 2 views [XR shoulder LT min 2V Exams 01/05/25 11:13 Completed ] Stat Shoulder XR right miminum 2 views [XR shoulder RT min Exams 01/05/25 11:13 Completed 2V] Stat Medical Decision Narrative: In summary patient is a 64-year-old female with past medical history of scrota above who presents emergency department for evaluation of traumatic injury sustained in a fall. Patient is hemodynamically stable nontoxic-appearing but arrival, afebrile. Based on history and physical exam trauma survey will be conducted with plain film of the right elbow, bilateral shoulders, bilateral knees, bilateral femurs, CT thoracolumbar spine. Noncontrasted CT scan of the head will also be obtained. Initial inventions include multimodal pain control. X-rays informally interpreted by me no acute significantly displaced fractures. Formal trauma survey reads unremarkable for acute traumatic pathology, there is degenerative disc disease with high-grade neural foraminal narrowing at L4-L5/L5-S1. Patient was able to ambulate at bedside and is appropriate for outpatient management will be discharged with a course of Robaxin was given return precautions. Critical Care Critical Care Time Critical Care Time: No
[2025-01-05] MEDS: ACETAMINOPHEN 500MG TAB 1000 MG PO (12:22)
[2025-01-05] MEDS: ONDANSETRON 4MG/2ML VIAL 4 MG IV (12:23)
[2025-01-05] MEDS: METHOCARBAMOL 500MG TABLET 1000 MG PO (12:23)
[2025-01-05] MEDS: MORPHINE 4MG/ML SYRINGE 4 MG IV (12:24)
== END 2025-01-05 13:51 | disposition home or self-care (01) ==
PROVIDERS: Emergency Provider Emergency Medicine; PCP Family Medicine
DX: S76.219A Strain of adductor muscle, fascia and tendon of unspecified thigh, initial encounter (principal); M25.521 Pain in right elbow; M25.512 Pain in left shoulder; M25.511 Pain in right shoulder; M25.561 Pain in right knee; M25.562 Pain in left knee; M54.6 Pain in thoracic spine; M54.50 Low back pain, unspecified; W19.XXXA Unspecified fall, initial encounter
CPT/HCPCS: 70450; 72128; 72131; 72192; 73030; 73060; 73080; 73552; 73562; 96374; 96375; 99285; J2270; J2405

== ENCOUNTER 2025-01-12 21:17 | Outpatient (CLI) | payer MEDICAID, SELFPAY ==
--- OUTSIDE RECORDS SUMMARY | 2018-02-11 08:25 | XMS_ITS | Encounter Summary ---
Author Organization [place] [address] Care Team Providers Care Roast Master Name Role Phone Dahlia Gagnon APRN Primary Care Provider Encounter Details Date Type Department Care Team (Latest Contact Info) Description 02/11/2018 8:25 AM EDT Hospital Encounter [facility] [address] [facility]. [place], [place] [id number] Left without seen Social History Tobacco Use Types Packs/Day Years Used Date Smoking Tobacco: Never Smokeless Tobacco: Never Alcohol Use Standard Drinks/Week Comments No 0 (1 standard drink = 0.6 oz pur e alcohol) AUDIT-C Answer Date Recorded Q1: How often do you have a drink containing alcohol? Never 10/02/2022 Q2: How many drinks containi ng alcohol do you have on a typical day when you are drinking? Patient does not drink Q3: How often do you have si x or more drinks on one occasion? Never 10/02/2022 Overall Financial Resource Strain (CARDIA) Answe r Date Recorded How hard is it for you to pa y for the very basics like food, housing, medical care, and heating? Not hard at all 10/02/2022 PHQ-2 Answer Date Recorded PHQ-2 Total Score 0 10/10/2023 [facility] [place] of Occupat ional Health - Occupational Stress Questionnaire Answer Date Recorded Do you feel stress - tense, restless, nervous, or anxious, or unable to sleep at night because your mind is troubled all the time - these days? Not at all 10/02/2022 Exercise Vital Sign Answer Date Recorde d On average, how many days pe r week do you engage in moderate to strenuous exercise (like a brisk walk)? 0 days 10/02/2022 On average, how many minutes do you engage in exercise at this level? 0 min 10/02/2022 Hunger Vital Sign Answer Date Recorded Within the past 12 months, y ou worried that your food would run out before you got the money to buy more. Never true 10/03/19 23 Within the past 12 months, t he food you bought just didn't last and you didn't have money to get more. Never true 10/02/2022 PRAPARE - Transportation Answer Date Re corded In the past 12 months, has l ack of transportation kept you from medical appointments or from getting medications? No 10/2022 In the past 12 months, has l ack of transportation kept you from meetings, work, or from getting things needed for daily living? No 10/02/2022 Housing Stability Vital Sign Answer Fabian e Recorded In the last 12 months, was t here a time when you were not able to pay the mortgage or rent on time? No 03/07/2023 In the last 12 months, how many places have you lived? 1 03/07/2023 In the last 12 months, was t here a time when you did not have a steady place to sleep or slept in a fpc (including now)? No 03/07/2023 Sexually Active Control Partners Comments Not Currently Post-menopausal Male Hysterectom y Comments No Sex and Gender Information Value Date Recorded Sex Assigned at Not on file Legal Sex Female 6:49 AM EDT Gender Identity Not on file Sexual Orientation Not on file COVID-19 Exposure Response Date Recorded In the last 10 days, have yo u been in contact with someone who was confirmed or suspected to have Coronavirus/COVID-19? No / Unsure 12/09/2022 3:37 PM EDT documented as of this encounter Functional Status * Cognitive and Functional Status Question Answer Date of Assessment Author Is the person deaf or does he/she have serious difficulty hearing? No 10/10/2023 1:39 PM EDT Harpreet Victor CCMA Is the person blind or does he/she have serious difficulty seeing even when wearing glasses? No 10/10/2023 1:39 PM EDT Harpreet Victor CCMA Does this person have seriou s difficulty walking or climbing stairs? No 10/10/2023 1:39 PM EDT Harpreet Victor CCMA Does this person have difficulty dressing or bathing? No 10/10/2023 1:39 PM EDT Harpreet Victor CCMA * Alcohol Screening Score Answer Date of Assessment Author 0 09/30/2022 3:45 PM EDT Dillon Reece RN * Drug Screening Score Answer Date of Assessment Author 0 09/30/2022 3:45 PM EDT Dillon Reece RN * Question Answer Date of Assessment Author How often do you have a drin k containing alcohol? 0 09/30/2022 3:45 PM EDT Shwetha Reece RN How many drinks containing alcohol do you have on a typical day when you are drinking? 0 09/30/2022 3:45 PM EDT Shwetha Reece RN How often do you have six or more drinks on one occasion? 0 09/30/2022 3:45 PM REGGIET Shwetha Reece RN AUDIT-C to Determine Rows 4-10 0 09/30/2022 3:45 PM EDT Shwetha Reece RN * Audit-C Score Answer Date of Assessment Author 0 10/02/2022 9:42 AM EDT Brianna Garcia RN * Question Answer Date of Assessment Author Q1: How often do you have a drink containing alcohol? Never 10/02/2022 9:42 AM REGGIET Brianna Napier RN Q2: How many drinks containing alcohol do you have on a typical day when you are drinking? Patient does not drink 10/02/2022 9:42 AM REGGIET Brianna Napier RN Q3: How often do you have six or more drinks on one occasion? Never 10/02/2022 9:42 AM REGGIET Brianna Napier RN * PHQ-9 Total Score Answer Date of Assessment Author 0 10/10/2023 1:39 PM EDT Emeli Victor, DELMIA * Question Answer Date of Assessment Author Little interest or pleasure in doing things 0 10/10/2023 1:39 PM EDT Harpreet Victor, DELMIA Feeling down, depressed, or hopeless 0 10/10/2023 1:39 PM EDT Harpreet Victor, DELMIA PHQ-2 Total Score 0 10/10/2023 1:39 PM EDT Emeli Victor, CCMA * Question Answer Date of Assessment Author Feeling Nervous, Anxious, or on Edge 0 10/10/2023 1:39 PM EDT Harpreet Victor, DELMIA Not Being Able to Stop or Control Worrying 0 10/10/2023 1:39 PM EDT Harpreet Victor, DELMIA Worrying too Much About Different Things 0 10/10/2023 1:39 PM EDT Harpreet Victor, DELMIA Trouble Relaxing 0 10/10/2023 1:39 PM EDT Emeli Whipple, DELMIA Being so Restless That it is Hard to Sit Still 0 10/10/2023 1:39 PM EDT Harpreet Victor, DELMIA Becoming Easily Annoyed or Irritable 0 10/10/2023 1:39 PM EDT Harpreet Victor, DELMIA Feeling Afraid as if Something Awful Might Happen 0 10/10/2023 1:39 PM EDT Emeli Victor, DELMIA DOMINIK-7 Total Score 0 10/10/2023 1:39 PM EDT Emeli Victor, DELMIA * Suicide Severity Rating Answer Date of Assessment Author No Risk 10/08/2023 5:43 PM EDT Faby Chang RN * [place] Suicide Severity Rating Scale (Q shift for moderate and high) Question Answer Date of Assessment Author 1. In the past month, have y ou wished you were or wished you could go to sleep and not wake up? 0 10/08/2023 5:43 PM EDT Niki Chang RN 2. In the past month, have y ou actually had any thoughts of killing yourself? (If no, skip to question 6) 0 10/08/2023 5:43 PM EDT Niki Chang RN 6. Have you ever done anythi ng, started to do anything, or prepared to do anything to end your life? 0 10/08/2023 5:43 PM EDT Niki Chang RN documented as of this encounter Mental Status * Cognitive and Functional Status Question Answer Entry Date Author Because of a physical, menta l or emotional condition, does this person have difficulty doing errands alone such as visiting a doctor's office or shopping? No 10/10/2023 1:39 PM EDT Harpreet Victor CCMA Because of a physical, menta l or emotional condition, does this person have serious difficulty concentrating, remembering or making decisions? No 10/10/2023 1:39 PM EDT Harpreet Victor CCMA documented in this encounter Plan of Treatment Not on file documented as of this encounter Goals Goal Patient Goal Type Associated Problems Recent Progress Patient-Stated? Author Blood Pressure < 140/90 Blood Pressure 130/78(2023 1:40 PM EDT) No Bridgette Russo RMA BMI (Calculated) < 30 General 45.8(01/08/20 24 1:40 PM EDT) No Bridgette Russo RMA Maintain a healthy diet, exercise regularly and maintain an ideal body weight General No Chuy Jose RMA Take blood pressure 2 times a day and log General Yes Brianna Napier RN HEMOGLOBIN A1C < 7.0 Result Component 7(10/08/2023 6:27 PM EDT) No Bridgette Russo RMA documented as of this encounter Visit Diagnoses Not on filedocumented in this encounter Additional Health Concerns Infection Onset Date Last Indicated Resolved Time R/O COVID-19 03/06/2023 03/06/2023 03/06/2023 2:42 PM EDT documented as of this encounter Care Teams Roast Master Relationship Specialty Start Date End Date Dahlia Gagnon APRN PCP - General Nurse Practitioner 01/06/18 04/27/18 documented as of this encounter
--- OUTSIDE RECORDS SUMMARY | 2025-01-12 21:20 | XMS_ITS | Encounter Summary ---
Author Organization [facility] Address [address] [place] [address] Care Team Providers Care Ammonium Nitrate Neutralizer Name Role Phone Carlo Mejia MD Primary Care Provider Un available Nonstaff, Referring Primary Care Provider Unavai Dahlia Mcfarland APRN Primary Care Provider [phone] Shannon Stern LPN Unavailable Unavailable Arias Oliveira MD Primary Care Provider Unav ailDahlia Nolan APRN Primary Care Provider [phone] Shannon Stern LPN Unavailable Unavailable Christa Cortes APRN Primary Care Provider [phone] Cb Stone DO, Viral Primary Care Provider [phone] Eva Pride RN Unavailable Unavaila ble Christa Cortes APRN Primary Care Provider [phone],[place] Unavailable Unavailabl e Reason for Visit * Reason Onset Date Comments Medication Refill 03/13/2017 Encounter Details Date Type Department Care Team (Late st Contact Info) Description 03/13/2017 Refill [facility] Nephrology [address] [place] [address] Tamera Rodrigues MD [address] [place] [address] Medication Refill Social History Tobacco [...] documented as of this encounter Care Teams Ammonium Nitrate Neutralizer Relationship Specialty Start Date End Date Carlo Mejia MD PCP - General Family Medicine 01/23/16 11/19/17 Nonstaff, Referring PCP - General 11/20/17 01/05/18 Dahlia Gagnon APRN PCP - General Nurse Practitioner 01/06/18 04/27/18 Arias Oliveira MD PCP - General Family Medicine 04/28/18 07/23/18 Dahlia Gagnon APRN PCP - General Nurse Practitioner 07/24/18 02/22/20 Christa Cortes APRN [address] [place] [phone] PCP - General Nurse Practitioner 02/23/20 01/24/21 Shaun Vivar DO [address] [place] [phone] PCP - General Family Medicine 01/25/21 09/25/21 Christa Cortes APRN [address] [place] [phone] PCP - General Nurse Practitioner 09/26/21 02/01/24 Shannon Stern LPN Health Advocate 04/01/18 06/18/18 Shannon Stern LPN Pediatric Pathologist 12/24/18 08/17/19 Eva Pride RN Pediatric Pathologist Registered Nurse 09/03/[address],LD Dietitian 10/02/22 10/03/22 documented as of this encounter
--- OUTSIDE RECORDS SUMMARY | 2025-01-12 21:20 | XMS_ITS | Encounter Summary ---
Author Organization [place] [address] Care Team Providers Care Prototype Fabricator Name Role Phone Unavailable Primary Care Provider Unavailabl e Reason for Referral * Medication Prior Authorization - Closed Specialty Diagnoses / Procedures Referred By Gee t Referred To Contact Diagnoses Asthma, unspecified asthma severity, unspecified whether complicated, unspecified whether persistent Christa Cortes APRN [address] [place] [phone] Phone: tel: fax: Referral ID Status Reason Start Date Expiration Date Visits Re quested Visits Authorized [id number] Closed 1 1 Reason for Visit * Reason Comments Medication Refill Encounter Details Date Type Department Care Team (Late st Contact Info) Description 12/29/2024 Refill [facility] [address] [place] [address] Christa Cortes APRN [address] [place] [address] Medication Refill Social History Tobacco [...] Date Recorded PHQ-2 Total Score 0 10/10/2023 [facility] - Occupational Stress [...]
--- OUTSIDE RECORDS SUMMARY | 2025-01-12 21:20 | XMS_ITS | Clinical Summary ---
Author Organization [facility] Address [address] [place] [address] Phone Care Team Providers Care Production Control Technologist Name Role Phone Unavailable Primary Care Provider [...] per insurance. Dx: E11.9 1 Each 08/08/19 Active Blood Sugar Diagnostic Misc StripIndication s:Type [...] taking.Reason: Therapy Completed, Reported on 01/08/2024 Insulin [place], Disposable, (RUFINO PEN NEEDLE) 32 gauge x [...] (KLOR-CON M) 10 mEq Oral Tab Sust.Rel. Particle/Charu lIndications:Es sential hypertension Take 1 Tablet by [...] (02/06/2022): Added automatically from request for surgery [id number] Left facial numbness 08/31/2021 CKD (chronic kidney [...] Type Department Care Team Description 12/29/[address] [address] Christa Cortes APRN Medication Refill 11/04/2024 [facility]ill [facility] [address] [place] [address] Christa Cortes APRN Medication Refill 10/26/2024 [facility]ill [facility] [address] [place] [address] Christa Cortes APRN Medication Refill [...] N/A Colonoscopy; Surgeon: Tay Monroe MD; Location: [facility] END[facility]COPY; Service: Endoscopy Medical History Medical History [...] Date Recorded PHQ-2 Total Score 0 10/10/2023 [facility] - [...] - 5.6 % 10/10/2023 5:46 PM EDT [facility] Est. Avg Glucose 154 mg/dL 10/10/2023 5:46 PM EDT [facility] Blood VENOUS BLOOD / Unknown Venipuncture / Unknown 10/08/2023 6:27 PM EDT 10/08/2023 6:27 PM EDT Narrative [facility] - 10/10/2023 5:46 PM EDT REFERENCE RANGE: Normal: 4.0-5.6% Pre-diabetes: 5.7-6.4% Provisional diagnosis of diabetes: >6.4% Hgb F>10% and anything which shortens red cell survival, such as hemolytic anemia, or unstable hemoglobin variants such as HbSS, HbSC, or HbCC, will lower the HbA1c value associated with a given level of glycemic control. us Christa Cortes APRN CHEMISTRY ORDERABLES Final Res ult [facility] [address] [facility] , [place] [address] * (ABNORMAL) BASIC METABOLIC PANEL (10/08/2023 6:26 PM EDT) Sodium 136 136 - 145 mmol/L 10/08/2023 6:47 PM EDT [facility] Potassium 4.1 3.5 - 5.0 mmol/L 10/08/2023 6:47 PM EDT [facility] Chloride 98 98 - 107 mmol/L 10/08/2023 6:47 PM EDT [facility] Total CO2 28 22 - 29 mmol/L 10/08/2023 6:47 PM EDT [facility] Anion Gap 10 7 - 16 mmol/L 10/08/2023 6:47 PM EDT [facility] Calcium 10.1 8.8 - 10.4 mg/dL 10/08/2023 6:47 PM EDT [facility] Glucose Lvl 170(H) 70 - 99 mg/dL 10/08/2023 6:47 PM EDT [facility] BUN 17 8 - 23 mg/dL 10/08/2023 6:47 PM EDT [facility] Creatinine 1.00 0.51 - 1.30 mg/dL 10/08/2023 6:47 PM EDT [facility] eGFR (CKD-EPIcr 2020) 64 >=60 mL/min/1.7 3 m2 10/08/2023 6:47 PM EDT [facility] Comment:Estimated GFR was ca lculated using the CKD-EPIcr (2020) equation refit without race. The equation is recommended by the National Kidney Foundation - [place] [employer] Neph[employer] Task Force. Blood VENOUS BLOOD / Unknown Venipuncture / Unknown 10/08/2023 6:26 PM EDT 10/08/2023 6:26 PM EDT us Kishore Garcia MD CHEMISTRY ORDERABLES Final Resul t [facility] [address] [place], [place] [id number] * (ABNORMAL) LIPID SCREEN (04/07/2023 11:09 AM EDT) Cholesterol 140 <200 mg/dL 04/07/2023 3:59 PM EDT [facility] Comment: < 200 Desirable 200 - 239 Borderline High >= 240 High Triglyceride 202(H) <150 mg/dL 04/07/2023 3:59 PM EDT [facility] Comment: < 150 Normal 150 - 199 Borderline High 200 - 499 High >= 500 Very High HDL 33(L) >=40 mg/dL 04/07/2023 3:59 PM EDT [facility] Comment: > 60 Optimal 40 - 60 Acceptable < 40 Low LDL Calculated 73 <100 mg/dL 04/07/2023 3:59 PM EDT [facility] Comment: < 100 Optimal 100 - 129 Near or above optimal 130 - 159 Borderline High 160 - 189 High >= 190 Very High Non-HDL-C Calculated 107 <=129 mg/dL 04/07/2023 3:59 PM EDT [facility] Comment: <130 Desirable 130-159 Above Desirable 160-189 Borderline High 190-219 High >= 220 Very High Fasting Specimen? Yes None 023 3:59 PM EDT [facility] Blood VENOUS BLOOD / Unknown Venipuncture / Unknown 04/07/2023 11:09 AM EDT 04/07/2023 11:09 AM EDT us Christa Cortes APRN CHEMISTRY ORDERABLES Final Res ult [facility] [address] [facility], [place] [address] [facility] [address] [place] [address] * GM[facility] COLONOSCOPY (02/13/2022 9:40 AM EDT) 02/13/2022 9:40 AM EDT Impressions [facility] - 02/13/2022 10:23 AM EDT Plan: This section is an excerpt of the full report. us Tay Monroe MD GI PROCEDURE ORDERABLES Patsy l Result [facility] [address] [place] [address] * MM MAMMO DIGITAL PIERRE SCREEN BILAT (11/07/2021 1:09 PM EDT) Anatomical Region Laterality Modality Breast Bilateral Mammography 11/07/2021 3:07 PM EDT Impressions 11/07/2021 3:07 PM EDT Benign finding ([id number]) ~ RECOMMENDATION: Routine screening mammogram in 1 [...] the next mammogram, in accordance with the [place] [employer] and the Society of Breast Imaging recommendations. Narrative 11/07/2021 3:07 PM EDT Procedure:MM MAMMO DIGITAL PIERRE SCREEN BILAT ~ Reason for exam: screening, asymptomatic. Z12.31-Encounter for screening mammogram for malignant neoplasm of [id number]-CM ~ MM MAMMO DIGITAL PIERRE SCREEN BILAT [...] for screening mammogram for malignant neoplasm of [id number]-CM ~ MM MAMMO DIGITAL PIERRE SCREEN BILAT Bilateral CC and MLO view(s) were taken. There are scattered fibroglandular densities. Prior study comparison: Compared with prior studies the most recentbeing 07/23/16, 10/12/14 No mammographic evidence of malignancy. Stable less than 1 cm nodular density in the RIGHT 9:00 position best seen on the CC view ~ IMPRESSION: Benign finding ([id number]) ~ RECOMMENDATION: Routine screening mammogram in 1 [...] the next mammogram, in accordance with the [place] [employer] and the Society of [...] Non-Reacti ve 01/07/2018 5:31 PM EDT [facility] Blood VENOUS BLOOD / Unknown Venipuncture / Unknown 01/07/2018 7:51 AM EDT 01/07/2018 7:51 AM EDT us Dahlia Gagnon [facility] HEMAT[facility] ORDERABLES Final Result [facility] [address] [place] [address] , [address] [place] [id number] from Last 3 Months or Most Recently Relevant to Health Maintenance Insurance [facility] MEDICAID [facility] MEDICAID [facility] MEDICAID Advance Directives For more information, please contact: [phone] * Full Code (Latest Code Status on [...]
--- OUTSIDE RECORDS SUMMARY | 2025-01-12 21:20 | XMS_ITS | Encounter Summary ---
Author Organization [place] [address] Care Team Providers Care Senior Financial Reporting Analyst Name Role Phone Dahlia Gagnon APRN Primary Care Provider [phone] Shannon Stern LPN Unavailable Unavailable Christa Cortes APRN Primary Care Provider [phone] Cb Stone DO, Viral Primary Care Provider [phone] Eva Pride RN Unavailable Unavaila Christa Newman APRN Primary Care Provider [phone],LD Unavailable Unavailabl e Reason for Visit * Reason Onset Date Comments Medication Refill 08/20/2018 Encounter Details Date Type Department Care Team (Late st Contact Info) Description 08/20/[address] [address] Dahlia Gagnon APRN [address] [address] Medication Refill Social History Tobacco [...] documented as of this encounter Care Teams Senior Financial Reporting Analyst Relationship Specialty Start Date End Date Dahlia Gagnon APRN PCP - General Nurse Practitioner 07/24/18 02/22/20 Christa Cortes APRN [facility] [place] [address] PCP - General Nurse Practitioner 02/23/20 01/24/21 Shaun Vivar DO [address] [place] [address] PCP - General Family Medicine 01/25/21 09/25/21 Christa Cortes APRN [address] [place] [address] PCP - General Nurse Practitioner 09/26/21 02/01/24 Shannon Stern LPN Data Entry Processor 12/24/18 08/17/19 Eva Pride RN Data Entry Processor Registered Nurse 09/03/[address],LD Dietitian 10/02/22 10/03/22 documented as of this encounter
== END 2025-01-12 23:59 | disposition home or self-care (01) ==
LOC: LAB.DROPOF 21:18
PROVIDERS: PCP Family Medicine; Visit Provider Family Medicine
DX: N20.0 Calculus of kidney (principal)
CPT/HCPCS: 87086

== ENCOUNTER 2025-02-02 14:44 | Outpatient (CLI) | payer MEDICAID, SELFPAY ==
--- OUTSIDE RECORDS SUMMARY | 2018-02-11 08:25 | XMS_ITS | Encounter Summary ---
Author Organization [place] [address] Care Team Providers Care Agricultural Equipment Salesperson Name Role Phone Dahlia Gagnon APRN Primary Care Provider Encounter Details Date Type Department Care Team (Latest Contact Info) Description 02/11/2018 8:25 AM EDT Hospital Encounter [facility] [address] [facility]. [place], [place] [phone] Left without seen Social History Tobacco Use [...] Date Recorded PHQ-2 Total Score 0 10/10/2023 [facility] [place] of Occupat ional Health - Occupational Stress [...] place to sleep or slept in a detention (including now)? No 03/07/2023 Sexually Active Control [...] Author 0 09/30/2022 3:45 PM EDT Dillon Recee RN * Drug Screening Score Answer Date [...] Edge 0 10/10/2023 1:39 PM EDT Harpreet Victro, DELMIA Not Being Able to Stop or [...] Author No Risk 10/08/2023 5:43 PM EDT aFby Chang RN * [place] Suicide Severity Rating Scale (Q shift for [...] documented as of this encounter Care Teams Agricultural Equipment Salesperson Relationship Specialty Start Date End Date Dahlia Gagnon APRN PCP - General Nurse Practitioner 01/06/18 04/27/18 documented as of this encounter
--- NOTE | 2025-02-02 14:47 | XR_ITS ---
FINAL REPORT CLINICAL HISTORY: right elbow fx COMPARISON: 01/05/2025 FINDINGS: 3 views of the elbow were obtained. There is a fracture through the right radial head which is new from prior exam. There is 2 mm of offset. No joint effusion is present. No other fracture is identified. IMPRESSION: Fracture through the right radial head, new from prior exam. Reviewed, Interpreted and Dictated by Kishore Johnson MD Transcribed by Nathalia Street Authenticated and . [facility]
--- OUTSIDE RECORDS SUMMARY | 2025-02-02 14:47 | XMS_ITS | Encounter Summary ---
Author Organization [facility] [place] [address] Care Team Providers Care Program Director Group Work Name Role Phone Unavailable Primary Care Provider Unavailabl e Reason for Visit * Reason Comments Medication Refill Encounter Details Date Type Department Care Team (Late st Contact Info) Description 01/20/2025 Refill [facility] [address] [place] [address] Christa Cortes, GRADES 1 [address] TUTOR [address] [place] [address] Medication Refill Social History Tobacco [...] Date Recorded PHQ-2 Total Score 0 10/10/2023 [facility] - Occupational Stress [...] Refills Last Filled Start Date End Date lisinopriL (PRINIVIL;ZESTRIL) 40 mg Oral TabletIndications: Essential hypertension TAKE 1 TABLET BY MOUTH ONCE DAILY FOR BLOOD PRESSURE 30 Tablet 01/20/2025 documented in this encounter Miscellaneous Notes * Telephone Encounter - Ilda Martinez CPhT - 01/20/2025 2:27 PM EDT Lisinopril Patient has not had an office visit for any reason in >13 months (395 days). Lab tests needed, if any: Abnormal serum potassium OR potassium not on file within 6 months, Serum creatinine (6 months), and Blood pressure (12 months) Defer to office. documented in this encounter Plan of Treatment Not on file documented as of this encounter Goals Goal Patient Goal Type Associated Problems Recent Progress Patient-Stated? Author Blood Pressure < 140/90 Blood Pressure 130/78(2023 1:40 PM EDT) No Bridgette Russo, RMA BMI (Calculated) < 30 General 45.8(07/11/20 24 1:40 PM EDT) No Bridgette Russo RMA Maintain a healthy diet, exercise regularly and maintain an ideal body weight General No Chuy Jose RMA Take blood pressure 2 times a day and log General Yes Brianna Napier RN HEMOGLOBIN A1C < 7.0 Result Component 7(10/08/2023 6:27 PM EDT) No Bridgette Russo RMA documented as of this encounter Visit Diagnoses Diagnosis Essential hypertension Unspecified essential hypertension documented in this encounter Discontinued Medications Medication Sig Discontinue Reason Start Date End Da te lisinopriL (PRINIVIL;ZESTRIL) 40 mg Oral TabletIndications:Essent ial hypertension TAKE 1 TABLET BY MOUTH DAILY FOR BLOOD PRESSURE 07/28/2024 01/20/2025 documented as of this encounter
--- OUTSIDE RECORDS SUMMARY | 2025-02-02 14:47 | XMS_ITS | Encounter Summary ---
Author Organization [place] [address] Care Team Providers Care Charge Aide Name Role Phone Unavailable Primary Care Provider Unavailabl e Reason for Referral * Medication Prior Authorization - Closed Specialty Diagnoses / Procedures Referred By Gee t Referred To Contact Diagnoses Asthma, unspecified asthma severity, unspecified whether complicated, unspecified whether persistent Christa Cortes APRN [address] [place] [address] Phone: tel: fax: Referral ID Status Reason Start Date Expiration Date Visits Re quested Visits Authorized [id number] Closed 1 1 Reason for Visit * Reason Comments Medication Refill Encounter Details Date Type Department Care Team (Late st Contact Info) Description 12/29/2024 Refill [facility] [address] [place] [address] Christa Cortes APRN [address] [place] [address] Medication Refill Social History Tobacco [...] Date Recorded PHQ-2 Total Score 0 10/10/2023 [facility] - Occupational Stress [...] place to sleep or slept in a long-term (including now)? No 03/07/2023 Sexually Active Control [...]
--- OUTSIDE RECORDS SUMMARY | 2025-02-02 14:47 | XMS_ITS | Encounter Summary ---
Author Organization [place] [address] Care Team Providers Care Geology Instructor Name Role Phone Dahlia Gagnon APRN Primary Care Provider [phone] Shannon Stern LPN Unavailable Unavailable Christa Cortes APRN Primary Care Provider Cb Stone DO, Viral Primary Care Provider [phone] Eva Pride RN Unavailable Unavaila Christa Newman APRN Primary Care Provider [phone],LD Unavailable Unavailabl e Reason for Visit * Reason Onset Date Comments Medication Refill 08/20/2018 Encounter Details Date Type Department Care Team (Late st Contact Info) Description 08/20/[address] [address] Dahlia Gagnon APRN [address] [address] Medication Refill Social History Tobacco [...] documented as of this encounter Care Teams Geology Instructor Relationship Specialty Start Date End Date Dahlia Gagnon APRN PCP - General Nurse Practitioner 07/24/18 02/22/[address] [facility] [place] [address] PCP - General Nurse Practitioner 02/23/20 01/24/21 Shaun Vivar DO [address] [place] [address] PCP - General Family Medicine 01/25/21 09/25/21 Christa Cortes APRN [address] [place] [address] PCP - General Nurse Practitioner 09/26/21 02/01/24 Shannon Stern LPN Multiskill Operator 12/24/18 08/17/19 Eva Pride RN Multiskill Operator Registered Nurse 09/03/[address],LD Dietitian 10/02/22 10/03/22 documented as of this encounter
--- OUTSIDE RECORDS SUMMARY | 2025-02-02 14:47 | XMS_ITS | Encounter Summary ---
Author Organization [facility] Address [address] [place] [address] Care Team Providers Care Nursery Laborer Name Role Phone Carlo Mejia MD Primary Care Provider Un available Nonstaff, Referring Primary Care Provider Unavai Dahlia Mcfarland APRN Primary Care Provider [phone] Shannon Stern LPN Unavailable Unavailable Arias Oliveira MD Primary Care Provider Unav ailDahlia Nolan APRN Primary Care Provider [phone] Shannon Stern LPN Unavailable Unavailable Christa Cortes APRN Primary Care Provider [phone] Cb Stone DO, Viral Primary Care Provider [phone] Eva Pride RN Unavailable Unavaila ble Christa Cortes APRN Primary Care Provider [phone],LD Unavailable Unavailabl e Reason for Visit * Reason Onset Date Comments Medication Refill 03/13/2017 Encounter Details Date Type Department Care Team (Late st Contact Info) Description 03/13/2017 Refill [facility] [address] [place] [address] Tamera Rodrigues MD [address] [place] [address] Medication Refill Social History Tobacco [...] 30 General 45.8(01/08/20 1:40 PM EDT) No Bridegtte Russo RMA Maintain a healthy diet, exercise [...] documented as of this encounter Care Teams Nursery Laborer Relationship Specialty Start Date End Date Carlo Mejia MD PCP - General Family Medicine 01/23/16 11/19/17 Nonstaff, Referring PCP - General 11/20/17 01/05/18 Dahlia Gagnon APRN PCP - General Nurse Practitioner 01/06/18 04/27/18 Arias Oliveira MD PCP - General Family Medicine 04/28/18 07/23/18 Dahlia Gagnon APRN PCP - General Nurse Practitioner 07/24/18 02/22/20 Christa Cortes APRN [address] [place] [address] PCP - General Nurse Practitioner 02/23/20 01/24/21 Shaun Vivar DO [address] [place] [address] PCP - General Family Medicine 01/25/21 09/25/21 Christa Cortes APRN [address] [place] [address] PCP - General Nurse Practitioner 09/26/21 02/01/24 Shannon Stern LPN Health Advocate 04/01/18 06/18/18 Shannon Stern LPN Reservations Clerk 12/24/18 08/17/19 Eva Pride RN Reservations Clerk Registered Nurse 09/03/[address],LD Dietitian 10/02/22 10/03/22 documented as of this encounter
== END 2025-02-02 23:59 | disposition home or self-care (01) ==
LOC: RAD 14:45
PROVIDERS: PCP Family Medicine; Visit Provider Orthopaedic Surgery
DX: S52.121A Displaced fracture of head of right radius, initial encounter for closed fracture (principal); X58.XXXA Exposure to other specified factors, initial encounter
CPT/HCPCS: 73080

== ENCOUNTER 2025-03-04 12:07 | Outpatient (CLI) | payer MEDICAID, SELFPAY ==
--- OUTSIDE RECORDS SUMMARY | 2018-02-11 08:25 | XMS_ITS | Encounter Summary ---
Author Organization [place] [address] Care Team Providers Care Boarding Mother Name Role Phone Dahlia Gagnon APRN Primary Care Provider [phone] Encounter Details Date Type Department Care Team (Latest Contact Info) Description 02/11/2018 8:25 AM EDT Hospital Encounter [facility] [address] [facility]. [place], [place] [phone] Left without seen Social History Tobacco Use [...] Date Recorded PHQ-2 Total Score 0 10/10/2023 [facility] [place] of Occupat ional Health - Occupational Stress [...] 5:43 PM EDT Faby Chang RN * [place] Suicide Severity Rating Scale (Q shift for [...] documented as of this encounter Care Teams Boarding Mother Relationship Specialty Start Date End Date Dahlia Gagnon APRN PCP - General Nurse Practitioner 01/06/18 04/27/18 documented as of this encounter
--- NOTE | 2025-03-04 12:10 | XR_ITS ---
FINAL REPORT CLINICAL HISTORY: right elbowfx COMPARISON: 02/02/2025 FINDINGS: AP, oblique, and lateral views of the right elbow were obtained. There has been no interval change in the fracture of the radial head with depression of the articular surface. Joint space is preserved. There is no joint effusion or other soft tissue abnormality. IMPRESSION: No interval change in the fracture of the radial head with depression of the articular surface when compared with the prior exam of 02/02/2025. Reviewed, Interpreted and Dictated by Toya Carbajal MD Transcribed by Kalyani Arcos Authenticated and [facility]
--- OUTSIDE RECORDS SUMMARY | 2025-03-04 12:10 | XMS_ITS | Clinical Summary ---
Author Organization [facility] Address [address] [place] [address] Phone Care Team Providers Care Hoop Riveter Name Role Phone Unavailable Primary Care Provider [...] taking.Reason: Therapy Completed, Reported on 01/08/2024 Insulin Wisner, Disposable, (RUFINO PEN NEEDLE) 32 gauge x [...] BY MOUTH DAILY 90 Tablet 4 Active metFORMIN (GLUCOPHAGE XR) 500 mg Oral ER 24 hr tabletIndication s:Type 2 diabetes mellitus without complication, without long-term current use of insulin (HCC) TAKE 2 TABLETS BY MOUTH TWICE DAILY WITH MEALS 120 Tablet 5 Active atorvastatin (LIPITOR) 40 mg Oral TabletIndication s:Hyperlipidemia with target LDL less than 100 TAKE 1 TABLET BY MOUTH EVERY NIGHT FOR CHOLESTEROL 30 Tablet 5 Active albuterol (PROVENTIL HFA;VENTOLIN HFA) 90 mcg/actuation Inhl HFA Aerosol InhalerIndicatio ns:Asthma, unspecified asthma severity, unspecified whether complicated, unspecified whether persistent INHALE 2 PUFFS BY MOUTH EVERY 6 HOURS NEEDED FOR WHEEZING 18 g 5 Active lisinopriL (PRINIVIL;ZESTRI L) 40 mg Oral TabletIndication s:Essential hypertension TAKE 1 TABLET BY MOUTH ONCE DAILY FOR BLOOD PRESSURE 30 Tablet 5 Active Active Problems Problem Noted Date Diagnosed Date Numbness and tingling of left side of face 09/30 Rectal bleeding 02/06/2022 Overview (02/06/2022): Added automatically from request for surgery [id number] Left facial numbness 08/31/2021 CKD (chronic kidney [...] Encounters Date Type Department Care Team Description 02/15/2025 Refill [facility] [place] [facility] [address] [place] [address] Christa Cortes, CARDIAC REHAB NURSE Medication Refill 01/20/2025 Refill [facility] [place] [facility] [address] [place] [address] Christa Cortes, CARDIAC REHAB NURSE Medication Refill 12/29/2024 Refill [facility] [address] [place] [address] Christa Cortes APRN Medication Refill [...] Colonoscopy; Surgeon: Tay Monroe MD; Location: [facility] END[facility]COPY; Service: Endoscopy Medical History Medical [...] Date Recorded PHQ-2 Total Score 0 10/10/2023 [facility] - Occupational Stress Questionnaire Answer Date [...] 11/08/2023 11/08/19, 07/23/2016, 10/12/2014, Additional history exists Lipids 04/07/2024 04/07/2023, 04/0 09/2022, 09/01/2021, Additional history exists Hemoglobin A1c 04/08/2024 10/08/2023, 10/0 02/2023, 12/10/2022, Additional history exists Kidney Health: eGFR 10/07/2024 10/08/2023, 05/18/2023, 05/13/2023, Additional history exists Annual Wellness Exam 10/09/2024 10/10/2023, 06/20/20 [facility]: uACR 10/09/2024 10/10/2023 COVID-19 Vaccine ( season) 2025 04/27/2022, 12/15/2021, 07/11/2021, Additional history exists Influenza Vaccine (#1) 2025 3, 06/20/2022, 04/14/2020, Additional history exists Colon Cancer [...] HEMOGLOBIN A1C (10/08/2023 6:27 PM EDT) Pathologist [facility] Hgb A1C 7.0(H) 4.2 - 5.6 % 10/10/2023 5:46 PM EDT [facility] Est. Avg Glucose 154 mg/dL 10/10/2023 5:46 PM EDT [facility] Blood VENOUS BLOOD / Unknown Venipuncture / Unknown 10/08/2023 6:27 PM EDT 10/08/2023 6:27 PM EDT Narrative [facility] - 10/10/2023 5:46 PM EDT REFERENCE RANGE: Normal: 4.0-5.6% Pre-diabetes: 5.7-6.4% Provisional diagnosis of diabetes: >6.4% Hgb F>10% and anything which shortens red cell survival, such as hemolytic anemia, or unstable hemoglobin variants such as HbSS, HbSC, or HbCC, will lower the HbA1c value associated with a given level of glycemic control. us Christa Cortes APRN CHEMISTRY ORDERABLES Final Res ult [facility] [address] [place] [address] , [place] [address] * (ABNORMAL) BASIC METABOLIC PANEL (10/08/2023 6:26 PM EDT) Pathologist [facility] Sodium 136 136 - 145 mmol/L 10/08/2023 6:47 PM EDT [facility] Potassium 4.1 3.5 - 5.0 mmol/L 10/08/2023 6:47 PM EDT [facility] Chloride 98 98 - 107 mmol/L 10/08/2023 6:47 PM EDT [facility] Total CO2 28 22 - 29 mmol/L 10/08/2023 6:47 PM EDT [facility] Anion Gap 10 7 - 16 mmol/L 10/08/2023 6:47 PM EDT [facility] Calcium 10.1 8.8 - 10.4 mg/dL 10/08/2023 6:47 PM EDT [facility] Glucose Lvl 170(H) 70 - 99 mg/dL 10/08/2023 6:47 PM EDT [facility] BUN 17 8 - 23 mg/dL 10/08/2023 6:47 PM EDT [facility] Creatinine 1.00 0.51 - 1.30 mg/dL 10/08/2023 6:47 PM EDT [facility] eGFR (CKD-EPIcr 2020) 64 >=60 mL/min/1.7 3 m2 10/08/2023 6:47 PM EDT [facility] Comment:Estimated GFR was ca lculated using the CKD-EPIcr (2020) equation refit without race. The equation is recommended by the National Kidney Foundation - [place] [employer] Nephrology Task Force. Blood VENOUS BLOOD / Unknown Venipuncture / Unknown 10/08/2023 6:26 PM EDT 10/08/2023 6:26 PM EDT us Kishore Garcia MD CHEMISTRY ORDERABLES Final Resul t [facility] [address] [place] [address] * (ABNORMAL) LIPID SCREEN (04/07/2023 11:09 AM EDT) Cholesterol 140 <200 mg/dL 04/07/2023 3:59 PM EDT [facility] Comment: < 200 Desirable 200 - 239 Borderline High >= 240 High Triglyceride 202(H) <150 mg/dL 04/07/2023 3:59 PM EDT Diurnal, Vertical Acuity Comment: < 150 Normal 150 - 199 Borderline High 200 - 499 High >= 500 Very High HDL 33(L) >=40 mg/dL 04/07/2023 3:59 PM EDT Diurnal, Vertical Acuity Comment: > 60 Optimal 40 - 60 Acceptable < 40 Low LDL Calculated 73 <100 mg/dL 04/07/2023 3:59 PM EDT [facility] Comment: < 100 Optimal 100 - 129 Near or above optimal 130 - 159 Borderline High 160 - 189 High >= 190 Very High Non-HDL-C Calculated 107 <=129 mg/dL 04/07/2023 3:59 PM EDT [facility] Comment: <130 Desirable 130-159 Above Desirable 160-189 Borderline High 190-219 High >= 220 Very High Fasting Specimen? Yes None 023 3:59 PM EDT [facility] Blood VENOUS BLOOD / Unknown Venipuncture / Unknown 04/07/2023 11:09 AM EDT 04/07/2023 11:09 AM EDT us Christa Cortes CARDIAC REHAB NURSE CHEMISTRY ORDERABLES Final Res ult [facility] [address] [facility], [place] [address] [facility] [address] [place] [address] * GM[facility] COLONOSCOPY (02/13/2022 9:40 AM EDT) 02/13/2022 9:40 AM EDT Impressions [facility] - 02/13/2022 10:23 AM EDT Plan: This section is an excerpt of the full report. Tay Monroe MD GI PROCEDURE ORDERABLES Patsy l Result Performing Organization Address [facility] Co de Phone Number [facility] [address] [place] [address] * MM MAMMO DIGITAL PIERRE SCREEN BILAT (11/07/2021 1:09 PM EDT) Anatomical Region Laterality Modality Breast Bilateral Mammography 11/07/2021 3:07 PM EDT Impressions 11/07/2021 3:07 PM EDT Benign finding ([id number]) ~ RECOMMENDATION: Routine screening mammogram in 1 [...] the next mammogram, in accordance with the [place] [employer] and the Society of Breast Imaging recommendations. Narrative 11/07/2021 3:07 PM EDT Procedure:MM MAMMO DIGITAL PIERRE SCREEN BILAT ~ Reason for exam: screening, asymptomatic. Z12.31-Encounter for screening mammogram for malignant neoplasm of [id number] ~ MM MAMMO DIGITAL PIERRE SCREEN BILAT [...] for screening mammogram for malignant neoplasm of [id number] ~ MM MAMMO DIGITAL PIERRE SCREEN BILAT Bilateral CC and MLO view(s) were taken. There are scattered fibroglandular densities. Prior study comparison: Compared with prior studies the most recentbeing 07/23/16, 10/12/14 No mammographic evidence of malignancy. Stable less than 1 cm nodular density in the RIGHT 9:00 position best seen on the CC view ~ IMPRESSION: Benign finding ([id number]) ~ RECOMMENDATION: Routine screening mammogram in 1 [...] the next mammogram, in accordance with the [place] [employer] and the Society of [...] ve 01/07/2018 5:31 PM EDT [facility] Blood VENOUS BLOOD / Unknown Venipuncture / Unknown 01/07/2018 7:51 AM EDT 01/07/2018 7:51 AM EDT us Dahlia Gagnon CARDIAC REHAB NURSE HEMATOLOGY ORDERABLES Final Result [facility] [address] [facility] , [place] [address] from Last 3 Months or Most Recently Relevant to Health Maintenance Insurance [facility] MEDICAID [facility] MEDICAID Advance Directives For more information, please contact: [phone] * Full Code (Latest Code Status on [...]
--- OUTSIDE RECORDS SUMMARY | 2025-03-04 12:10 | XMS_ITS | Encounter Summary ---
Author Organization [facility] Address [address] [place] [address] Care Team Providers Care Coat Finisher Name Role Phone Carlo Mejia MD Primary Care Provider Un available Nonstaff, Referring Primary Care Provider Unavai Dahlia Mcfarland APRN Primary Care Provider [phone] Shannon Stern LPN Unavailable Unavailable Arias Oliveira MD Primary Care Provider Unav ailDahlia Nolan APRN Primary Care Provider [phone] Shannon Stern LPN Unavailable Unavailable Christa Cortes APRN Primary Care Provider [phone] Cb Stone DO, Viral Primary Care Provider [phone] Eva Pride RN Unavailable Unavaila ble Christa Cortes APRN Primary Care Provider [phone],LD Unavailable Unavailabl e Reason for Visit * Reason Onset Date Comments Medication Refill 03/13/2017 Encounter Details Date Type Department Care Team (Late st Contact Info) Description 03/13/2017 Refill [facility] [address] [place] [address] Tamera Rodrigues MD [address] [place] [address] Medication Refill Social History Tobacco [...] documented as of this encounter Care Teams Coat Finisher Relationship Specialty Start Date End Date Carlo Mejia MD PCP - General Family Medicine 01/23/16 11/19/17 Nonstaff, Referring PCP - General 11/20/17 01/05/18 Dahlia Gagnon APRN PCP - General Nurse Practitioner 01/06/18 04/27/18 Arias Oliveira MD PCP - General Family Medicine 04/28/18 07/23/18 Dahlia Gagnon APRN PCP - General Nurse Practitioner 07/24/18 02/22/20 Christa Cortes APRN [address] [place] [address] PCP - General Nurse Practitioner 02/23/20 01/24/21 Shaun Vivar DO [address] [place] [address] PCP - General Family Medicine 01/25/21 09/25/21 Christa Cortes APRN [address] [place] [address] PCP - General Nurse Practitioner 09/26/21 02/01/24 Shannon Stern LPN Health Advocate 04/01/18 06/18/18 Shannon Stern LPN Intake Assessor 12/24/18 08/17/19 Eva Pride RN Intake Assessor Registered Nurse 09/03/[address],LD Dietitian 10/02/22 10/03/22 documented as of this encounter
--- OUTSIDE RECORDS SUMMARY | 2025-03-04 12:10 | XMS_ITS | Encounter Summary ---
Author Organization [place] [address] Care Team Providers Care Senior Devops Engineer Name Role Phone Dahlia Gagnon APRN Primary Care Provider [phone] Shannon Stern LPN Unavailable Unavailable Christa Cortes APRN Primary Care Provider [phone] Cb Stone DO, Viral Primary Care Provider [phone] Eva Pride RN Unavailable Unavaila Christa Newman APRN Primary Care Provider [phone],LD Unavailable Unavailabl e Reason for Visit * Reason Onset Date Comments Medication Refill 08/20/2018 Encounter Details Date Type Department Care Team (Late st Contact Info) Description 08/20/[address] [address] Dahlia Gagnon APRN [address] [address] Medication Refill Social History Tobacco [...] as of this encounter Care Teams Senior Devops Engineer Relationship Specialty Start Date End Date Dahlia Gagnon APRN PCP - General Nurse Practitioner 07/24/18 02/22/20 Christa Cortes APRN [facility] [place] [address] PCP - General Nurse Practitioner 02/23/20 01/24/21 Shaun Vivar DO [address] [place] [address] PCP - General Family Medicine 01/25/21 09/25/21 Christa Cortes APRN [address] [place] [address] PCP - General Nurse Practitioner 09/26/21 02/01/24 Shannon Stern LPN Home Health Care Worker 12/24/18 08/17/19 Eva Pride RN Home Health Care Worker Registered Nurse 09/03/[address],LD Dietitian 10/02/22 10/03/22 documented as of this encounter
--- OUTSIDE RECORDS SUMMARY | 2025-03-04 12:10 | XMS_ITS | Encounter Summary ---
Author Organization [facility] [place] [address] Care Team Providers Care Media Developer Name Role Phone Unavailable Primary Care Provider Unavailabl e Reason for Visit * Reason Comments Medication Refill Encounter Details Date Type Department Care Team (Late st Contact Info) Description 02/15/2025 Refill [facility] [address] [place] [address] Christa Cortes, DELIVERY ROUTE DRIVER [address] [place] [address] Medication Refill Social History Tobacco [...] Date Recorded PHQ-2 Total Score 0 10/10/2023 [facility] [place] [facility] Occupat ional Health - Occupational Stress [...] place to sleep or slept in a care home (including now)? No 03/07/2023 Sexually Active Control [...] Emeli Victor CCMA documented in this encounter Miscellaneous Notes * Telephone Encounter - Ilda Martinez CPhT - 02/15/2025 3:20 PM EDT Lisinopril Patient has not had an office visit for any reason in >13 months (395 days). Lab tests needed, if any: Abnormal serum potassium OR potassium not on file within 6 months, Serum creatinine (6 months), and Blood pressure (12 months) Defer to office. Metformin Patient has not had an office visit for any reason in >13 months (395 days). Lab tests needed, if any: Serum creatinine (6 months), A1c (6 months), and Lipid panel (12 months) Defer to office. documented in [...] without long-term current use of insulin (HCC) Essential hypertension Unspecified essential hypertension documented in this encounter
--- OUTSIDE RECORDS SUMMARY | 2025-03-04 12:10 | XMS_ITS | Encounter Summary ---
Author Organization [facility] [place] [address] [place] [address] Care Team Providers Care Welder Apprentice Arc Name Role Phone Unavailable Primary Care Provider Unavailabl e Reason for Visit * Reason Comments Medication Refill Encounter Details Date Type Department Care Team (Late st Contact Info) Description 01/20/2025 Refill [facility] [address] [place] [address] Christa Cortes, USED CAR MANAGER [address] [place] [address] Medication Refill Social History Tobacco [...] Date Recorded PHQ-2 Total Score 0 10/10/2023 [facility] Occupat ional Health - Occupational Stress [...] place to sleep or slept in a fci (including now)? No 03/07/2023 Sexually Active Control [...]
== END 2025-03-04 23:59 | disposition home or self-care (01) ==
LOC: RAD 12:08
PROVIDERS: PCP Family Medicine; Visit Provider Orthopaedic Surgery
DX: S52.121A Displaced fracture of head of right radius, initial encounter for closed fracture (principal)
CPT/HCPCS: 73080